=== PATIENT | female | born 1960 | race American Indian/Alaskan Native ===

== ENCOUNTER 2019-06-26 16:10 | Inpatient (IN) | payer OTHER, SELFPAY ==
--- NOTE | 2019-06-26 16:25 | Event Note ---
ED Screening Note Date of service: 06/26/19 Time: 16:24 ED Screening Note: This is a 58 y.o. F. that presents to the ER with cough, SOB, and chest discomfort for 10 days. Patient states she is taking OTC cold and flu medication with minimal changes. This initial assessment/diagnostic orders/clinical plan/treatment(s) is/are subject to change based on patients health status, clinical progression and re- assessment by fellow clinical providers in the ED. Further treatment and workup at subsequent clinical providers discretion. Patient/guardian urged not to elope from the ED as their condition may be serious if not clinically assessed and managed. Initial orders include: EKG and CXR
--- NOTE | 2019-06-26 17:09 | XRay Report ---
CHEST 2 VIEWS INDICATION / CLINICAL INFORMATION: MAIN: cough and SOB FOR 1 WEEK. COMPARISON: None available. FINDINGS: SUPPORT DEVICES: None. HEART / MEDIASTINUM: Critics silhouette size is mildly enlarged. LUNGS / PLEURA: There is mild interstitial prominence bilaterally. It is unclear how much of this is chronic interstitial disease versus mild interstitial pulmonary edema, or possibly a combination of b oth. There are no pleural effusions or suggestion for bacterial pneumonia. No pneumothorax. ADDITIONAL FINDINGS: No significant additional findings. IMPRESSION: 1. Mild cardiomegaly. 2. Mild interstitial prominence bilaterally. I would favor that interstitial prominence is due to chr onic interstitial disease. However I do not have any prior radiographs for comparison and therefore s ome degree of minimal interstitial pulmonary edema is not excluded. Clinical correlation is recommend ed. Signer Name: Juana Smith MD Signed: 06/26/2019 5:04 PM Workstation Name: [id number]
[2019-06-26 19:13] LABS: Basophils % (Auto) 0.5 % (0.0-1.8); Eosinophils # (Auto) 0.2 K/mm3 (0.0-0.4); Hematocrit 35.5 % (30.3-42.9); Hemoglobin 11.6 gm/dl (10.1-14.3); Lymphocytes # (Auto) 2.8 K/mm3 (1.2-5.4); Lymphocytes % (Auto) 34.5 % (13.4-35.0); Mean Corpuscular HGB Conc 33 % (30-34); Mean Corpuscular Volume 88 fl (79-97); Monocytes # (Auto) 0.7 K/mm3 (0.0-0.8); Monocytes % (Auto) 8.5 % (0.0-7.3); Platelet Count 412 K/mm3 (140-440); Red Blood Count 4.03 M/mm3 (3.65-5.03); Red Cell Distribution Width 16.5 % (13.2-15.2)
[2019-06-26 19:23] LABS: INR 0.94 (0.87-1.13)
--- NOTE | 2019-06-26 19:27 | Emergency Department Report ---
ED Shortness of Breath HPI - General Chief Complaint: Chest Pain Stated Complaint: FLU SX/CHEST PAIN Time Seen by Provider: 06/26/19 16:23 Source: patient Mode of arrival: Ambulatory Limitations: No Limitations - History of Present Illness Initial Comments: Mrs. Grant is a very pleasant 58-year-old female with history of tobacco abuse, hypertension and diabetes mellitus who presents with symptoms 10 days of cough shortness of breath. She has cloudy sputum. 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 He has similar symptoms. She denies fever. She's had chest discomfort. Nondescript. No history of lung disease. PCP Dr. Cirilo TAY Complaint: shortness of breath, cough -: Gradual, days(s) (10) Severity: severe Quality: aching Consistency: constant Worsens With: exertion, coughing Known History Of: other (tobacco use HTN) - Related Data Home Medications Medication Instructions Recorded Confirmed Last Taken Lisinopril/Hydrochlorothiazide 1 tab PO BID 06/26/19 06/26/19 06/26/19 Neurontin 300 mg PO Q6H 06/26/19 06/26/19 06/26/19 metFORMIN 1,000 mg PO BID 06/26/19 06/26/19 06/26/19 Allergies Allergy/AdvReac Type Severity Reaction Status Date / Time prochlorperazine Allergy Unknown Verified 06/26/19 16:16 [From Compazine] ED Review of Systems ROS: Stated complaint: FLU SX/CHEST PAIN Other details as noted in HPI Comment: All other systems reviewed and negative Constitutional: malaise Respiratory: cough, shortness of breath, SOB with exertion Cardiovascular: chest pain ED Past Medical Hx - Past Medical History Previous Medical History?: Yes Hx Hypertension: Yes Hx Diabetes: Yes - Surgical History Past Surgical History?: Yes Additional Surgical History: c sections x 2. abd hernia x 5. appendectomy - Social History Smoking Status: Current Every Day Smoker Substance Use Type: Alcohol, Marijuana - Medications Home Medications: Home Medications Medication Instructions Recorded Confirmed Last Taken Type Lisinopril/Hydrochlorothiazide 1 tab PO BID 06/26/19 06/26/19 06/26/19 History Neurontin 300 mg PO Q6H 06/26/19 06/26/19 06/26/19 History metFORMIN 1,000 mg PO BID 06/26/19 06/26/19 06/26/19 History ED Physical Exam - General Limitations: No Limitations General appearance: alert, in distress, other (appears uncomfortable, speaks with obvious effort, frequent cough) - Head Head exam: Present: atraumatic, normocephalic - Eye Eye exam: Present: normal appearance - ENT ENT exam: Present: mucous membranes moist - Neck Neck exam: Present: normal inspection, full ROM - Respiratory Respiratory exam: Present: respiratory distress, wheezes, rales. Absent: rhonchi, stridor, chest wall tenderness, accessory muscle use, decreased breath sounds, prolonged expiratory - Cardiovascular Cardiovascular Exam: Present: regular rate, normal rhythm, normal heart sounds. Absent: systolic murmur, diastolic murmur, rubs, gallop - GI/Abdominal GI/Abdominal exam: Present: soft, normal bowel sounds. Absent: distended, tenderness, guarding, rebound - Extremities Exam Extremities exam: Present: normal inspection - Neurological Exam Neurological exam: Present: alert, oriented X3 - Psychiatric Psychiatric exam: Present: normal affect, normal mood - Skin Skin exam: Present: warm, dry, intact, normal color. Absent: rash ED Course Vital Signs 06/26/19 06/26/19 06/26/19 16:27 18:40 18:43 Temperature 98.3 F Pulse Rate 95 H Pulse Rate [ Bilateral] Respiratory 18 18 Rate Respiratory Rate [Bilateral ] Blood Pressure 111/80 Blood Pressure [Right] O2 Sat by Pulse 100 97 Oximetry 06/26/19 06/26/19 06/26/19 18:44 18:57 19:12 Temperature Pulse Rate 84 70 85 Pulse Rate [ Bilateral] Respiratory 18 18 15 Rate Respiratory Rate [Bilateral ] Blood Pressure 172/84 Blood Pressure 172/84 173/83 [Right] O2 Sat by Pulse 100 100 93 Oximetry 06/26/19 06/26/19 06/26/19 19:30 20:00 20:06 Temperature Pulse Rate 78 86 Pulse Rate [ 94 H Bilateral] Respiratory 17 28 H Rate Respiratory 22 Rate [Bilateral ] Blood Pressure 162/78 166/88 Blood Pressure [Right] O2 Sat by Pulse 98 100 Oximetry 06/26/19 06/26/19 20:46 21:00 Temperature Pulse Rate 85 88 Pulse Rate [ Bilateral] Respiratory 20 20 Rate Respiratory Rate [Bilateral ] Blood Pressure 162/93 162/93 Blood Pressure [Right] O2 Sat by Pulse 96 98 Oximetry ED Medical Decision Making - Lab Data Result diagrams: 06/26/19 19:01 06/26/19 19:01 Laboratory Results - last 24 hr 06/26/19 06/26/19 06/26/19 19:01 19:01 19:01 WBC 8.1 RBC 4.03 Hgb 11.6 Hct 35.5 MCV 88 MCH 29 MCHC 33 RDW 16.5 H Plt Count 412 Lymph % (Auto) 34.5 O'Brien % (Auto) 8.5 H Eos % (Auto) 3.0 Baso % (Auto) 0.5 Lymph # 2.8 O'Brien # 0.7 Eos # 0.2 Baso # 0.0 Seg Neutrophils % 53.5 Seg Neutrophils # 4.3 PT 12.7 INR 0.94 Sodium 136 L Potassium 4.4 Chloride 94.9 L Carbon Dioxide 25 Anion Gap 21 BUN 18 H Creatinine 0.9 Estimated GFR > 60 BUN/Creatinine Ratio 20 Glucose 192 H Calcium 8.9 Total Bilirubin 0.30 AST 66 H ALT 368 H Alkaline Phosphatase 151 H Troponin T 0.020 NT-Pro-B Natriuret Pep 241.5 Total Protein 7.3 Albumin 3.4 L Albumin/Globulin Ratio 0.9 - EKG Data 06/26/19 19:22 EKG obtained 1618 NSR 90 bpm nl axis no ST elevation normal T wave pattern Poor R wave progression anterior leads Q waves anterior leads - Radiology Data Radiology results: report reviewed pCXR interstitial prominence edema vs infiltrate - Medical Decision Making Acute dyspnea with chest discomfort abnormal lung exam: Suspect new diagnosis of COPD. Did consider congestive heart failure. Normal BMP. Symptoms appear to be acute. She continues to have work of breathing. Hypoxia desaturation noted with m inimal exertion in the room. Admitted to the hospital service for further treatment and evaluation.. Critical care attestation.: If time is entered above; I have spent that time in minutes in the direct care of this critically ill patient, excluding procedure time. ED Disposition Clinical Impression: Acute respiratory failure with hypoxia, Acute bronchitis Disposition: OP ADMIT IP TO THIS HOSP Is pt being admited?: Yes Does the pt Need Aspirin: No Condition: Stable
[2019-06-26] MEDS ORDERED: ALBUTEROL 2.5 MG/3 ML NEBU IH ONE (19:28)
[2019-06-26] MEDS ORDERED: FUROSEMIDE 40 MG/4 ML INJ IV ONE (19:28)
[2019-06-26] MEDS ORDERED: IPRATROPIUM 0.02% NEBU 2.5 ML IH ONE (19:28)
[2019-06-26] MEDS ORDERED: levoFLOXacin 750 MG TAB PO ONE (19:28)
[2019-06-26] MEDS ORDERED: methylPREDNISolone Sod Succinate 125 MG/2 ML INJ IV ONE (19:28)
[2019-06-26 19:39] LABS: Alanine Aminotransferase 368 units/L (7-56); Albumin 3.4 g/dL (3.9-5); BUN/Creatinine Ratio 20; Blood Urea Nitrogen 18 mg/dL (7-17); Calcium 8.9 mg/dL (8.4-10.2); Hemolysis Index 15
[2019-06-27] MEDS ORDERED: ONDANSETRON 4 MG/2 ML INJ IV PRN (00:26)
[2019-06-27] MEDS ORDERED: ACETAMINOPHEN 325 MG TAB PO PRN (00:26)
[2019-06-27] MEDS ORDERED: MAGNESIUM HYDROXIDE (MOM) ORAL LIQD UDC PO PRN (00:26)
[2019-06-27] MEDS ORDERED: DEXTROSE 50% IN WATER (25GM) 50 ML SYRINGE IV PRN (00:26)
[2019-06-27] MEDS: SODIUM CHLORIDE 0.9% 1000 ML 1,000 ML IV SCH (01:19)
[2019-06-27] MEDS: IPRATROPIUM/ALBUTEROL SULFATE 3 ML AMPUL.NEB IH SCH ×4 (02:35→21:55)
--- NOTE | 2019-06-27 02:37 | History and Physical Report ---
History of Present Illness Date of examination: 06/27/19 Date of admission: 06/27/19 00:06 Chief complaint: Shortness of breath Cough History of present illness: 58-year-old -[place] female with known history of COPD, hypertension and diabetes mellitus. She presents to the emergency room today complaining of shortness of breath, cough fever which has been ongoing for about 10 days. Patient is an everyday smoker and she smokes less than half a pack of cigarette daily. She indicates that she traveled to [place] recently and since then she has been having cough and shortness of breath and some low-grade fever at home. She denies any sick contacts, she denies any nausea vomiting and she denies any chest pain. Upon arrival in the emergency room patient was found to be wheezing slightly up hypoxic with an O2 saturation in the upper 80s. She was given nebulizing treatments and placed on oxygen with some improvement Past History Past Medical History: COPD, diabetes, hypertension Past Surgical History: appendectomy, , hernia repair Social history: smoking (Smokes less than half a pack of cigarette daily), alcohol abuse (Drinks alcohol occasionally), other (Uses marijuana occasionally) Family history: diabetes (Mother has history of diabetes mellitus), other (Father has history of heart disease) Medications and Allergies Allergies Allergy/AdvReac Type Severity Reaction Status Date / Time prochlorperazine Allergy Unknown Verified 06/26/19 16:16 [From Compazine] Home Medications Medication Instructions Recorded Confirmed Last Taken Type Lisinopril/Hydrochlorothiazide 1 tab PO BID 06/26/19 06/26/19 06/26/19 History Neurontin 300 mg PO Q6H 06/26/19 06/26/19 06/26/19 History metFORMIN 1,000 mg PO BID 06/26/19 06/26/19 06/26/19 History Active Meds: Active Medications Acetaminophen (Tylenol) 650 mg PO Q4H PRN PRN Reason: Pain MILD(1-3)/Fever >100.5/LAUREANO Albuterol/Ipratropium (Duoneb *Not For Prn Use*) 1 ampul IH Q6HRT RICHARD Dextrose (D50w (25gm) Syringe) 50 ml IV Q30MIN PRN; Protocol PRN Reason: Hypoglycemia Sodium Chloride (Nacl 0.9% 1000 Ml) 1,000 mls @ 75 mls/hr IV DIRECT RICHARD Last Admin: 06/27/19 01:19 Dose: 75 mls/hr Documented by: Levofloxacin/Dextrose (Levaquin 750mg/150ml) 750 mg in 150 mls @ 100 mls/hr IV Q24HR RICHARD; Protocol Magnesium Hydroxide (Milk Of Magnesia) 30 ml PO Q4H PRN PRN Reason: Constipation Methylprednisolone Sodium Succinate (Solu-Medrol) 40 mg IV Q6HR RICHARD Ondansetron HCl (Zofran) 4 mg IV Q8H PRN PRN Reason: Nausea And Vomiting Pneumococcal Polyvalent Vaccine (Pneumovax 23) 0.5 ml IM .ONCE ONE Stop: 06/27/19 12:01 Sodium Chloride (Sodium Chloride Flush Syringe 10 Ml) 10 ml IV BID RICHARD Sodium Chloride (Sodium Chloride Flush Syringe 10 Ml) 10 ml IV PRN PRN PRN Reason: LINE FLUSH Review of Systems Respiratory: cough with sputum, shortness of breath Exam - Constitutional Vitals: Temp Pulse Resp BP Pulse Ox 97.8 F 82 20 165/85 93 06/27/19 01:29 06/27/19 01:26 06/27/19 01:26 06/27/19 01:26 06/27/19 01:26 General appearance: Present: no acute distress, well-nourished - EENT Eyes: Present: PERRL, EOM intact ENT: hearing intact, clear oral mucosa, dentition normal - Neck Neck: Present: supple, normal ROM - Respiratory Respiratory: bilateral: wheezing (Few scattered wheezes bilaterally) - Cardiovascular Rhythm: regular Heart Sounds: Present: S1 & S2 - Extremities Extremities: no ischemia, pulses intact, No edema Peripheral Pulses: within normal limits - Abdominal General gastrointestinal: Present: soft, non-tender, non-distended, normal bowel sounds - Integumentary Integumentary: Present: clear, warm, dry - Musculoskeletal Musculoskeletal: strength equal bilaterally - Psychiatric Psychiatric: appropriate mood/affect, intact judgment & insight, cooperative - Neurologic Neurologic: CNII-XII intact, moves all extremities Results - Labs CBC & Chem 7: 06/26/19 19:01 06/26/19 19:01 Labs: Abnormal lab results 06/26/19 06/26/19 Range/Units 19:01 19:01 RDW 16.5 H (13.2-15.2) % Webb % (Auto) 8.5 H (0.0-7.3) % Sodium 136 L (137-145) mmol/L Chloride 94.9 L (98-107) mmol/L BUN 18 H (7-17) mg/dL Glucose 192 H (65-100) mg/dL AST 66 H (5-40) units/L ALT 368 H (7-56) units/L Alkaline Phosphatase 151 H (35-129) units/L Albumin 3.4 L (3.9-5) g/dL Assessment and Plan - Patient Problems (1) COPD with acute bronchitis Current Visit: Yes Status: Acute Plan to address problem: Patient placed on nebulizing treatments and IV steroid. She is also placed on empiric IV antibiotics for possible underlying bronchitis. We will keep O2 saturation greater or equal to 92%. (2) Hypertension Current Visit: Yes Status: Acute Plan to address problem: Resume routine home medications and monitor vital signs closely. (3) Diabetes mellitus Current Visit: Yes Status: Acute Plan to address problem: We will monitor Accu-Cheks closely and continue routine home medications. (4) DVT prophylaxis Current Visit: Yes Status: Acute Plan to address problem: Patient placed on subcutaneous heparin. (5) Full code status Current Visit: Yes Status: Acute
[2019-06-27] MEDS: methylPREDNISolone Sod Succinate 40 MG/1 ML INJ IV SCH ×3 (06:20→18:00)
[2019-06-27] MEDS: HEPARIN 5,000 UNIT/1 ML VIAL SUB-Q SCH ×3 (06:27→22:03)
[2019-06-27] MEDS: GABAPENTIN 300 MG CAP PO SCH ×3 (06:27→17:15)
[2019-06-27] MEDS: metFORMIN 500 MG TAB PO SCH ×2 (08:20→17:15)
[2019-06-27] MEDS ORDERED: ALBUTEROL 2.5 MG/3 ML NEBU IH PRN (08:30)
[2019-06-27] MEDS: LISINOPRIL 20 MG TAB PO SCH ×2 (09:31→22:02)
[2019-06-27] MEDS: hydroCHLOROthiazide 12.5 MG CAP PO SCH ×2 (09:33→22:02)
[2019-06-27] MEDS ORDERED: FLU VACC QUAD 2019-20 (3 YR UP)/PF 60 MCG/0.5 ML SYRINGE IM ONE (12:00)
[2019-06-27] MEDS ORDERED: PNEUMOCOCCAL 23 Valent 0.5 ML VIAL IM ONE (12:00)
--- NOTE | 2019-06-27 12:39 | Event Note ---
Date: 06/27/19 58-year-old -[place] female with known history of COPD, hypertension and diabetes mellitus. She presents to the emergency room today complaining of shortness of breath, cough fever which has been ongoing for about 10 days. Patient is an everyday smoker and she smokes less than half a pack of cigarette daily. She indicates that she traveled to [place] recently and since then she has been having cough and shortness of breath and some low-grade fever. Patient seen and examined medical records reviewed Agree with the current management. Smoking cessation counseling done --Acute exacerbation of COPD --Acute bronchitis --Hypertension --Type 2 diabetes mellitus --Morbid obesity BMI 41.5 --Ongoing tobacco use. Monitor closely and adjust the management as needed Plan of care reviewed with the patient, her daughter at the bedside Consult pulmonary if no improvement Disposition; possible discharge in 1 to 2 days if stable
[2019-06-27] MEDS: INSULIN LISPRO 100 UNIT/ML SUB-Q SCH ×2 (17:15→22:03)
[2019-06-27] MEDS: BUDESONIDE 0.5 MG/2 ML NEBU IH SCH (21:55)
[2019-06-27] MEDS: ARFORMOTEROL 15 MCG/2 ML NEBU IH SCH (21:55)
[2019-06-27] MEDS: TEMAZEPAM 15 MG CAP PO PRN (22:02)
[2019-06-28] MEDS: GABAPENTIN 300 MG CAP PO SCH ×4 (00:05→17:32)
[2019-06-28] MEDS: methylPREDNISolone Sod Succinate 40 MG/1 ML INJ IV SCH ×4 (00:05→17:32)
[2019-06-28] MEDS: HEPARIN 5,000 UNIT/1 ML VIAL SUB-Q SCH ×3 (05:34→22:03)
[2019-06-28] MEDS: SODIUM CHLORIDE 0.9% 1000 ML 1,000 ML IV SCH (05:35)
[2019-06-28 07:05] LABS: BUN/Creatinine Ratio 27; Blood Urea Nitrogen 30 mg/dL (7-17); Calcium 9.1 mg/dL (8.4-10.2); Hemolysis Index 3
[2019-06-28] MEDS: INSULIN LISPRO 100 UNIT/ML SUB-Q SCH ×4 (08:00→22:02)
[2019-06-28] MEDS: metFORMIN 500 MG TAB PO SCH ×2 (08:34→17:34)
[2019-06-28 09:02] LABS: INR 0.94 (0.87-1.13); Partial Thromboplastin Time 30.7 Sec. (24.2-36.6)
[2019-06-28] MEDS: hydroCHLOROthiazide 12.5 MG CAP PO SCH ×2 (09:33→22:02)
[2019-06-28 09:34] LABS: Basophils % (Auto) 0.1 % (0.0-1.8); Hematocrit 34.4 % (30.3-42.9); Lymphocytes # (Auto) 0.8 K/mm3 (1.2-5.4); Mean Corpuscular HGB Conc 32 % (30-34); Mean Corpuscular Volume 89 fl (79-97); Monocytes # (Auto) 0.5 K/mm3 (0.0-0.8); Monocytes % (Auto) 4.3 % (0.0-7.3); Platelet Count 450 K/mm3 (140-440); Red Blood Count 3.88 M/mm3 (3.65-5.03); Red Cell Distribution Width 16.4 % (13.2-15.2)
[2019-06-28] MEDS: LISINOPRIL 20 MG TAB PO SCH ×2 (09:35→22:01)
[2019-06-28] MEDS: ARFORMOTEROL 15 MCG/2 ML NEBU IH SCH ×2 (09:58→19:53)
[2019-06-28] MEDS: BUDESONIDE 0.5 MG/2 ML NEBU IH SCH ×2 (09:58→19:53)
[2019-06-28] MEDS: IPRATROPIUM/ALBUTEROL SULFATE 3 ML AMPUL.NEB IH SCH ×4 (09:58→20:00)
--- NOTE | 2019-06-28 15:16 | Cat Scan Report ---
CTA chest with contrast INDICATION : SOB. TECHNIQUE: Axial imaging performed through the chest, with contrast bolus timing set to maximize opa cification of the pulmonary arteries. 3-plane MIP reformatted images were obtained. All CT scans at this location are performed using CT dose reduction for ALARA by means of automated exposure control. 100 mL of intravenous contrast administered. COMPARISON: Chest x-ray from 2 days prior FINDINGS: Bolus: Contrast bolus timing is adequate. PTE: No filling defect is present to suggest PTE. Mediastinum: Heart and great vessels appear normal, with incidental bovine aortic arch configuration . No pathologic mediastinal adenopathy. Lungs: There is minimal tree-in-bud airspace disease in the periphery of the right upper lobe as wel l as the right lower lobe. No consolidation or pleural effusion. Upper abdomen: Limited imaging of the upper abdomen shows nothing acute. Bones: Degenerative changes in the spine with nothing acute. IMPRESSION: 1. Negative for PTE. 2. Minimal tree-in-bud airspace disease in the right lung can be seen with an atypical infectious pro cess. No dense consolidation or effusion. Signer Name: Rosendo Galicia MD Signed: 06/28/2019 3:12 PM Workstation Name: [id number]
--- NOTE | 2019-06-28 17:48 | Progress Note ---
Assessment and Plan Assessment and plan: Patient is a 58-year-old -[place] woman with known history of COPD, hypertension and diabetes mellitus. She presents to the emergency room today complaining of shortness of breath, cough fever which has been ongoing for about 10 days. Patient is an everyday smoker and she smokes less than half a pack of cigarette daily. She indicates that she flew to [facility] recently and since then she has been having cough and shortness of breath and some low-grade fever at home. She denies any sick contacts, she denies any nausea vomiting and she denies any chest pain. CTA chest shows tree-in-bud right lung atypical pneumonia, consulted ID. (1) COPD with acute bronchitis Current Visit: Yes Status: Acute Plan to address problem: Patient placed on nebulizing treatments and IV steroid. She is also placed on empiric IV antibiotics for possible underlying bronchitis. We will keep O2 saturation greater or equal to 92%. (2) Hypertension Current Visit: Yes Status: Acute Plan to address problem: Resume routine home medications and monitor vital signs closely. (3) Diabetes mellitus Current Visit: Yes Status: Acute Plan to address problem: We will monitor Accu-Cheks closely and continue routine home medications. (4) DVT prophylaxis Current Visit: Yes Status: Acute Plan to address problem: Patient placed on subcutaneous heparin. (5) Full code status Current Visit: Yes Status: Acute sepsis pneumonia, poa RUL and RLL Aspiraiton pneumionia suspect: treat with iv abx History Interval history: Patient was seen and examined. Follow-up on current diagnosis. No overnight events reported to me. Patient denies any chest pain, shortness breath, nausea/vomiting or severe headaches. Imaging, nursing note, chart, labs and old chart reviewed. Discussed with patient. Hospitalist Physical - Physical exam Narrative exam: Gen: ill appearing, NAD, Awake, Alert, Orientated HEENT: NCAT, EOMI, PERRL, OP Clear Neck: supple, no adenopathy, no thyromegaly, no JVD CVS/Heart: RRR, normal S1S2, pulses present bilaterally Chest/Lungs: diminished bs bilateral, Symmetrical chest expansion, good air entry bilaterally GI/Abdomen: soft, NTND, good bowel sounds, no guarding or rebound /Bladder: no suprapubic tenderness, no CVA or paraspinal tenderness Extermity/Skin: no c/c/e, no obvious rash MSK: FROM x 4 Neuro: CN 2-12 grossly intact, no new focal deficits Psych: calm - Constitutional Vitals: Temp Pulse Resp BP Pulse Ox 97.7 F 97 H 18 175/85 96 06/28/19 08:02 06/28/19 16:29 06/28/19 16:29 06/28/19 11:45 06/28/19 11:45 General appearance: Present: no acute distress, well-nourished Results - Labs CBC & Chem 7: 06/28/19 05:00 06/28/19 05:00 Labs: Laboratory Last Values WBC 11.5 K/mm3 (4.5-11.0) H 06/28/19 05:00 RBC 3.88 M/mm3 (3.65-5.03) 06/28/19 05:00 Hgb 11.0 gm/dl (10.1-14.3) 06/28/19 05:00 Hct 34.4 % (30.3-42.9) 06/28/19 05:00 MCV 89 fl (79-97) 06/28/19 05:00 MCH 28 pg (28-32) 06/28/19 05:00 MCHC 32 % (30-34) 06/28/19 05:00 RDW 16.4 % (13.2-15.2) H 06/28/19 05:00 Plt Count 450 K/mm3 (140-440) H 06/28/19 05:00 Lymph % (Auto) 7.0 % (13.4-35.0) L 06/28/19 05:00 Coleman % (Auto) 4.3 % (0.0-7.3) 06/28/19 05:00 Eos % (Auto) 0.0 % (0.0-4.3) 06/28/19 05:00 Baso % (Auto) 0.1 % (0.0-1.8) 06/28/19 05:00 Lymph # 0.8 K/mm3 (1.2-5.4) L 06/28/19 05:00 Coleman # 0.5 K/mm3 (0.0-0.8) 06/28/19 05:00 Eos # 0.0 K/mm3 (0.0-0.4) 06/28/19 05:00 Baso # 0.0 K/mm3 (0.0-0.1) 06/28/19 05:00 Seg Neutrophils % 88.6 % (40.0-70.0) H 06/28/19 05:00 Seg Neutrophils # 10.2 K/mm3 (1.8-7.7) H 06/28/19 05:00 PT 12.7 Sec. (12.2-14.9) 06/28/19 05:00 INR 0.94 (0.87-1.13) 06/28/19 05:00 APTT 30.7 Sec. (24.2-36.6) 06/28/19 05:00 D-Dimer 678.50 ng/mlDDU (0-234) H 06/28/19 10:35 Sodium 135 mmol/L (137-145) L 06/28/19 05:00 Potassium 5.2 mmol/L (3.6-5.0) H 06/28/19 05:00 Chloride 93.3 mmol/L (98-107) L 06/28/19 05:00 Carbon Dioxide 23 mmol/L (22-30) 06/28/19 05:00 Anion Gap 24 mmol/L 06/28/19 05:00 BUN 30 mg/dL (7-17) H 06/28/19 05:00 Creatinine 1.1 mg/dL (0.7-1.2) 06/28/19 05:00 Estimated GFR > 60 ml/min 06/28/19 05:00 BUN/Creatinine Ratio 27 % 06/28/19 05:00 Glucose 357 mg/dL (65-100) H 06/28/19 05:00 POC Glucose 243 (70-105) H 06/28/19 17:36 Calcium 9.1 mg/dL (8.4-10.2) 06/28/19 05:00 Total Bilirubin 0.30 mg/dL (0.1-1.2) 06/26/19 19:01 AST 66 units/L (5-40) H 06/26/19 19:01 ALT 368 units/L (7-56) H 06/26/19 19:01 Alkaline Phosphatase 151 units/L (35-129) H 06/26/19 19:01 Troponin T 0.020 ng/mL (0.00-0.029) 06/26/19 19:01 NT-Pro-B Natriuret Pep 241.5 pg/mL (0-900) 06/26/19 19:01 Total Protein 7.3 g/dL (6.3-8.2) 06/26/19 19:01 Albumin 3.4 g/dL (3.9-5) L 06/26/19 19:01 Albumin/Globulin Ratio 0.9 % 06/26/19 19:01 Active Medications - Current Medications Current Medications: Generic Name Dose Route Start Last Admin Trade Name Freq PRN Reason Stop Dose Admin Acetaminophen 650 mg 06/27/19 00:26 06/28/19 10:15 Tylenol PO 650 mg Q4H PRN Administration Pain MILD(1-3)/Fever >100.5/LAUREANO Albuterol 2.5 mg 06/27/19 08:30 Proventil IH Q4HRT PRN Shortness Of Breath Albuterol/Ipratropium 1 ampul 06/27/19 14:00 06/28/19 16:29 Duoneb *Not For Prn Use* IH 1 ampul TIDRT RICHARD Administration Arformoterol Tartrate 15 mcg 06/27/19 20:00 06/28/19 09:58 Brovana Nebu IH 15 mcg Q12HRT RICHARD Administration Budesonide 0.5 mg 06/27/19 20:00 06/28/19 09:58 Pulmicort IH 0.5 mg Q12HRT RICHARD Administration Dextrose 50 ml 06/27/19 00:26 D50w (25gm) Syringe IV Q30MIN PRN Hypoglycemia Protocol Gabapentin 300 mg 06/27/19 05:15 06/28/19 17:32 Gabapentin PO 300 mg Q6HR RICHARD Administration Heparin Sodium (Porcine) 5,000 unit 06/27/19 06:00 06/28/19 16:05 Heparin SUB-Q 5,000 unit Q8HR RICHARD Administration Hydralazine HCl 10 mg 06/28/19 12:00 Apresoline IV Q4H PRN Blood Pressure Hydrochlorothiazide 12.5 mg 06/27/19 10:00 06/28/19 09:33 Hctz PO 12.5 mg BID RICHARD Administration Sodium Chloride 1,000 mls @ 75 mls/hr 06/27/19 00:30 06/28/19 05:35 Nacl 0.9% 1000 Ml IV 75 mls/hr DIRECT RICHARD Administration Levofloxacin/Dextrose 750 mg in 150 mls @ 100 mls/hr 06/27/19 10:00 06/28/19 09:34 Levaquin 750mg/150ml IV 100 mls/hr Q24HR RICHARD Administration Protocol Insulin Human Lispro 0 unit 06/27/19 16:30 06/28/19 17:33 Humalog SUB-Q 3 unit ACHS RICHARD Administration Protocol Lisinopril 20 mg 06/27/19 10:00 06/28/19 09:35 Zestril PO 20 mg BID RICHARD Administration Magnesium Hydroxide 30 ml 06/27/19 00:26 Milk Of Magnesia PO Q4H PRN Constipation Metformin HCl 1,000 mg 06/27/19 08:00 06/28/19 17:34 Glucophage PO Not Given BIDDIAB RICHARD Methylprednisolone Sodium Succinate 40 mg 06/27/19 06:00 06/28/19 17:32 Solu-Medrol IV 40 mg Q6HR RICHARD Administration Ondansetron HCl 4 mg 06/27/19 00:26 Zofran IV Q8H PRN Nausea And Vomiting Sodium Chloride 10 ml 06/27/19 10:00 06/28/19 09:34 Sodium Chloride Flush Syringe 10 Ml IV 10 ml BID RICHARD Administration Sodium Chloride 10 ml 06/27/19 00:26 Sodium Chloride Flush Syringe 10 Ml IV PRN PRN LINE FLUSH Temazepam 15 mg 06/27/19 21:18 06/27/19 22:02 Restoril PO 15 mg QHS PRN Administration Sleep
[2019-06-28] MEDS: AZITHROMYCIN 500 MG in SODIUM CHLORIDE 0.9% 250ML 250 ML IV SCH (18:50)
[2019-06-28] MEDS: TEMAZEPAM 15 MG CAP PO PRN (22:01)
[2019-06-29] MEDS: methylPREDNISolone Sod Succinate 40 MG/1 ML INJ IV SCH ×4 (02:42→22:40)
[2019-06-29] MEDS: GABAPENTIN 300 MG CAP PO SCH ×4 (02:43→18:01)
[2019-06-29] MEDS: HEPARIN 5,000 UNIT/1 ML VIAL SUB-Q SCH ×3 (06:18→22:43)
[2019-06-29] MEDS: BUDESONIDE 0.5 MG/2 ML NEBU IH SCH ×2 (07:41→20:11)
[2019-06-29] MEDS: IPRATROPIUM/ALBUTEROL SULFATE 3 ML AMPUL.NEB IH SCH ×4 (07:41→20:11)
[2019-06-29] MEDS: ARFORMOTEROL 15 MCG/2 ML NEBU IH SCH ×2 (07:41→20:11)
[2019-06-29] MEDS: LISINOPRIL 20 MG TAB PO SCH ×2 (09:07→22:41)
[2019-06-29] MEDS: SODIUM CHLORIDE 0.9% 1000 ML 1,000 ML IV SCH (09:07)
[2019-06-29] MEDS: hydroCHLOROthiazide 12.5 MG CAP PO SCH ×2 (09:07→22:41)
[2019-06-29] MEDS: INSULIN LISPRO 100 UNIT/ML SUB-Q SCH ×4 (09:08→22:42)
[2019-06-29] MEDS: metFORMIN 500 MG TAB PO SCH (09:08)
--- NOTE | 2019-06-29 13:22 | Progress Note ---
Assessment and Plan Assessment and plan: Patient is a 58-year-old -[place] woman with known history of COPD, hypertension and diabetes mellitus. She presents to the emergency room today complaining of shortness of breath, cough fever which has been ongoing for about 10 days. Patient is an everyday smoker and she smokes less than half a pack of cigarette daily. She indicates that she flew to [facility] 06/17-03/31 recently. She was so sick after flying to [place] that she could not go to the event. Since then she has been having worsening cough and shortness of breath with some low-grade fever at home. CTA chest shows tree-in-bud right lung atypical pneumonia, consulted ID. Sepsis pneumonia, poa: treat with abx and follow cultures RUL and RLL Aspiraiton pneumionia suspected, poa: treat with iv abx, consulted ID due to atypical nature of the pneumonia Acute COPD with acute bronchitis: continue iv steroid but start weaning down, nebs, and O2 Acute hypoxic respiratory failure, poa: trying to wean off 3 liters O2 Hypertension: Resume routine home medications and monitor vital signs closely. Diabetes mellitus type 2, uncontrolled hyperglycemia on steroids and off m etformin due to contrast dye, give one dose of Lantus and wean steroids, increase SSI also DVT prophylaxis: Patient placed on subcutaneous heparin. Full code status Dispo: continue inpatient care, trying to wean off O2 History Interval history: Patient was seen and examined. Follow-up on current diagnosis. No overnight events reported to me. Patient denies any chest pain, shortness breath, nausea/vomiting or severe headaches. Imaging, nursing note, chart, labs and old chart reviewed. Discussed with patient. Hospitalist Physical - Physical exam Narrative exam: Gen: ill appearing, NAD, Awake, Alert, Orientated HEENT: NCAT, EOMI, PERRL, OP Clear Neck: supple, no adenopathy, no thyromegaly, no JVD CVS/Heart: RRR, normal S1S2, pulses present bilaterally Chest/Lungs: diminished bs bilateral, Symmetrical chest expansion, good air entry bilaterally GI/Abdomen: soft, NTND, good bowel sounds, no guarding or rebound /Bladder: no suprapubic tenderness, no CVA or paraspinal tenderness Extermity/Skin: no c/c/e, no obvious rash MSK: FROM x 4 Neuro: CN 2-12 grossly intact, no new focal deficits Psych: calm - Constitutional Vitals: Temp Pulse Resp BP Pulse Ox 98.4 F 94 H 18 151/73 94 06/29/19 12:53 06/29/19 13:11 06/29/19 13:11 06/29/19 12:53 06/29/19 13:05 General appearance: Present: no acute distress, well-nourished Results - Labs CBC & Chem 7: 06/28/19 05:00 06/28/19 05:00 Labs: Laboratory Last Values WBC 11.5 K/mm3 (4.5-11.0) H 06/28/19 05:00 RBC 3.88 M/mm3 (3.65-5.03) 06/28/19 05:00 Hgb 11.0 gm/dl (10.1-14.3) 06/28/19 05:00 Hct 34.4 % (30.3-42.9) 06/28/19 05:00 MCV 89 fl (79-97) 06/28/19 05:00 MCH 28 pg (28-32) 06/28/19 05:00 MCHC 32 % (30-34) 06/28/19 05:00 RDW 16.4 % (13.2-15.2) H 06/28/19 05:00 Plt Count 450 K/mm3 (140-440) H 06/28/19 05:00 Lymph % (Auto) 7.0 % (13.4-35.0) L 06/28/19 05:00 [place] % (Auto) 4.3 % (0.0-7.3) 06/28/19 05:00 Eos % (Auto) 0.0 % (0.0-4.3) 06/28/19 05:00 Baso % (Auto) 0.1 % (0.0-1.8) 06/28/19 05:00 Lymph # 0.8 K/mm3 (1.2-5.4) L 06/28/19 05:00 [place] # 0.5 K/mm3 (0.0-0.8) 06/28/19 05:00 Eos # 0.0 K/mm3 (0.0-0.4) 06/28/19 05:00 Baso # 0.0 K/mm3 (0.0-0.1) 06/28/19 05:00 Seg Neutrophils % 88.6 % (40.0-70.0) H 06/28/19 05:00 Seg Neutrophils # 10.2 K/mm3 (1.8-7.7) H 06/28/19 05:00 PT 12.7 Sec. (12.2-14.9) 06/28/19 05:00 INR 0.94 (0.87-1.13) 06/28/19 05:00 APTT 30.7 Sec. (24.2-36.6) 06/28/19 05:00 D-Dimer 678.50 ng/mlDDU (0-234) H 06/28/19 10:35 Sodium 135 mmol/L (137-145) L 06/28/19 05:00 Potassium 5.2 mmol/L (3.6-5.0) H 06/28/19 05:00 Chloride 93.3 mmol/L (98-107) L 06/28/19 05:00 Carbon Dioxide 23 mmol/L (22-30) 06/28/19 05:00 Anion Gap 24 mmol/L 06/28/19 05:00 BUN 30 mg/dL (7-17) H 06/28/19 05:00 Creatinine 1.1 mg/dL (0.7-1.2) 06/28/19 05:00 Estimated GFR > 60 ml/min 06/28/19 05:00 BUN/Creatinine Ratio 27 % 06/28/19 05:00 Glucose 357 mg/dL (65-100) H 06/28/19 05:00 POC Glucose 429 (70-105) H 06/29/19 12:15 Calcium 9.1 mg/dL (8.4-10.2) 06/28/19 05:00 Total Bilirubin 0.30 mg/dL (0.1-1.2) 06/26/19 19:01 AST 66 units/L (5-40) H 06/26/19 19:01 ALT 368 units/L (7-56) H 06/26/19 19:01 Alkaline Phosphatase 151 units/L (35-129) H 06/26/19 19:01 Troponin T 0.020 ng/mL (0.00-0.029) 06/26/19 19:01 NT-Pro-B Natriuret Pep 241.5 pg/mL (0-900) 06/26/19 19:01 Total Protein 7.3 g/dL (6.3-8.2) 06/26/19 19:01 Albumin 3.4 g/dL (3.9-5) L 06/26/19 19:01 Albumin/Globulin Ratio 0.9 % 06/26/19 19:01 Active Medications - Current Medications Current Medications: Generic Name Dose Route Start Last Admin Trade Name Freq PRN Reason Stop Dose Admin Acetaminophen 650 mg 06/27/19 00:26 06/28/19 10:15 Tylenol PO 650 mg Q4H PRN Administration Pain MILD(1-3)/Fever >100.5/LAUREANO Albuterol 2.5 mg 06/27/19 08:30 Proventil IH Q4HRT PRN Shortness Of Breath Albuterol/Ipratropium 1 ampul 06/27/19 14:00 06/29/19 13:11 Duoneb *Not For Prn Use* IH 1 ampul TIDRT RICHARD Administration Arformoterol Tartrate 15 mcg 06/27/19 20:00 06/29/19 07:41 Brovana Nebu IH 15 mcg Q12HRT RICHARD Administration Budesonide 0.5 mg 06/27/19 20:00 06/29/19 07:41 Pulmicort IH 0.5 mg Q12HRT RICHARD Administration Dextrose 50 ml 06/27/19 00:26 D50w (25gm) Syringe IV Q30MIN PRN Hypoglycemia Protocol Diphenhydramine HCl 25 mg 06/29/19 13:15 Benadryl PO Q8H PRN Itching Gabapentin 300 mg 06/27/19 05:15 06/29/19 12:25 Gabapentin PO 300 mg Q6HR RICHARD Administration Heparin Sodium (Porcine) 5,000 unit 06/27/19 06:00 06/29/19 13:01 Heparin SUB-Q Not Given Q8HR RICHARD Hydralazine HCl 10 mg 06/28/19 12:00 Apresoline IV Q4H PRN Blood Pressure Hydrochlorothiazide 12.5 mg 06/27/19 10:00 06/29/19 09:07 Hctz PO 12.5 mg BID RICHARD Administration Sodium Chloride 1,000 mls @ 75 mls/hr 06/27/19 00:30 06/29/19 09:07 Nacl 0.9% 1000 Ml IV 75 mls/hr DIRECT RICHARD Administration Azithromycin 500 mg/ Sodium 250 mls @ 250 mls/hr 06/28/19 18:30 06/28/19 18:50 Chloride IV 250 mls/hr Q24H RICHARD Administration Protocol Insulin Human Lispro 0 unit 06/27/19 16:30 06/29/19 12:26 Humalog SUB-Q 8 unit ACHS RICHARD Administration Protocol Lisinopril 20 mg 06/27/19 10:00 06/29/19 09:07 Zestril PO 20 mg BID RICHARD Administration Magnesium Hydroxide 30 ml 06/27/19 00:26 Milk Of Magnesia PO Q4H PRN Constipation Methylprednisolone Sodium Succinate 40 mg 06/27/19 06:00 06/29/19 12:25 Solu-Medrol IV 40 mg Q6HR RICHARD Administration Ondansetron HCl 4 mg 06/27/19 00:26 06/28/19 19:32 Zofran IV 4 mg Q8H PRN Administration Nausea And Vomiting Sodium Chloride 10 ml 06/27/19 10:00 06/29/19 09:08 Sodium Chloride Flush Syringe 10 Ml IV 10 ml BID RICHARD Administration Sodium Chloride 10 ml 06/27/19 00:26 06/29/19 06:20 Sodium Chloride Flush Syringe 10 Ml IV 10 ml PRN PRN Administration LINE FLUSH Temazepam 15 mg 06/27/19 21:18 06/28/19 22:01 Restoril PO 15 mg QHS PRN Administration Sleep
[2019-06-29] MEDS ORDERED: INSULIN GLARGINE 100 UNITS/ML SUB-Q ONE (13:30)
[2019-06-29] MEDS: diphenhydrAMINE 25 MG CAP PO PRN ×2 (13:35→22:40)
--- NOTE | 2019-06-29 17:08 | Consultation ---
History of Present Illness - Reason for Consult Consult date: 06/29/19 - History of Present Illness 58 yo F PMHx COPD, HTN, DM2, tobacco abuse admitted to the hospital complaining of shortness of breath. She notes this began on June 17 as she was boarding a plane to go to [place] for a wedding. She felt so poorly there with SOB and non-productive cough that she was unable to attend the wedding, and flew back to [place] early. Since then she thought she had a virus that she would get over, however she continues to feel the same/worse. She denies any fevers, sweats, chills. Denies any sick contacts. Has travelled to [place] repeatedly since the summer, however no other travel. From [place] originally. Afebrile since admission with a white count of 11.5. Blood cultures no growth so far. Currently receiving azithromycin Imaging personally reviewed: CT chest: Tree in bud opacities. Review of systems: Bold if positive; otherwise negative GENERAL: fever, chills, weight loss, fatigue, night sweats EYES: blurry vision, eye pain HENT: headache, hearing loss, sore throat, dysphagia, sinus pain CARDIO: chest pain, palpitations, orthopnea PULM: shortness of breath, wheezing, cough, sputum, hemoptysis GI: nausea, vomiting, diarrhea, abdominal pain, blood in stool : urinary frequency, urgency, dysuria, urethral discharge MSK: joint pain, back pain, swelling SKIN: rash, redness HEME: easy bruising, bleeding Past History Past Medical History: COPD, diabetes, hypertension Past Surgical History: appendectomy, , hernia repair Social history: smoking (Smokes less than half a pack of cigarette daily), alcohol abuse (Drinks alcohol occasionally), other (Uses marijuana occasionally) Family history: diabetes (Mother has history of diabetes mellitus), other (Father has history of heart disease) Medications and Allergies Allergies Allergy/AdvReac Type Severity Reaction Status Date / Time prochlorperazine Allergy Unknown Verified 06/26/19 16:16 [From Compazine] Home Medications Medication Instructions Recorded Confirmed Last Taken Type Lisinopril/Hydrochlorothiazide 1 tab PO BID 06/26/19 06/26/19 06/26/19 History Neurontin 300 mg PO Q6H 06/26/19 06/26/19 06/26/19 History metFORMIN 1,000 mg PO BID 06/26/19 06/26/19 06/26/19 History Active Meds: Active Medications Acetaminophen (Tylenol) 650 mg PO Q4H PRN PRN Reason: Pain MILD(1-3)/Fever >100.5/LAUREANO Last Admin: 06/28/19 10:15 Dose: 650 mg Documented by: Albuterol (Proventil) 2.5 mg IH Q4HRT PRN PRN Reason: Shortness Of Breath Albuterol/Ipratropium (Duoneb *Not For Prn Use*) 1 ampul IH TIDRT [facility] Last Admin: 06/29/19 13:11 Dose: 1 ampul Documented by: Arformoterol Tartrate (Brovana Nebu) 15 mcg IH Q12HRT [facility] Last Admin: 06/29/19 07:41 Dose: 15 mcg Documented by: Budesonide (Pulmicort) 0.5 mg IH Q12HRT [facility] Last Admin: 06/29/19 07:41 Dose: 0.5 mg Documented by: Dextrose (D50w (25gm) Syringe) 50 ml IV Q30MIN PRN; Protocol PRN Reason: Hypoglycemia Diphenhydramine HCl (Benadryl) 25 mg PO Q8H PRN PRN Reason: Itching Last Admin: 06/29/19 13:35 Dose: 25 mg Documented by: Gabapentin (Gabapentin) 300 mg PO Q6HR [facility] Last Admin: 06/29/19 12:25 Dose: 300 mg Documented by: Heparin Sodium (Porcine) (Heparin) 5,000 unit SUB-Q Q8HR [facility] Last Admin: 06/29/19 13:01 Dose: Not Given Documented by: Hydralazine HCl (Apresoline) 10 mg IV Q4H PRN PRN Reason: Blood Pressure Hydrochlorothiazide (Hctz) 12.5 mg PO BID [facility] Last Admin: 06/29/19 09:07 Dose: 12.5 mg Documented by: Azithromycin 500 mg/ Sodium (Chloride) 250 mls @ 250 mls/hr IV Q24H [facility]; Protocol Last Admin: 06/28/19 18:50 Dose: 250 mls/hr Documented by: Insulin Human Lispro (Humalog) 0 unit SUB-Q ACHS [facility]; Protocol Last Admin: 06/29/19 12:26 Dose: 8 unit Documented by: Lisinopril (Zestril) 20 mg PO BID [facility] Last Admin: 06/29/19 09:07 Dose: 20 mg Documented by: Magnesium Hydroxide (Milk Of Magnesia) 30 ml PO Q4H PRN PRN Reason: Constipation Methylprednisolone Sodium Succinate (Solu-Medrol) 40 mg IV Q12HR [facility] Ondansetron HCl (Zofran) 4 mg IV Q8H PRN PRN Reason: Nausea And Vomiting Last Admin: 06/28/19 19:32 Dose: 4 mg Documented by: Sodium Chloride (Sodium Chloride Flush Syringe 10 Ml) 10 ml IV BID RICHARD Last Admin: 06/29/19 09:08 Dose: 10 ml Documented by: Sodium Chloride (Sodium Chloride Flush Syringe 10 Ml) 10 ml IV PRN PRN PRN Reason: LINE FLUSH Last Admin: 06/29/19 06:20 Dose: 10 ml Documented by: Temazepam (Restoril) 15 mg PO QHS PRN PRN Reason: Sleep Last Admin: 06/28/19 22:01 Dose: 15 mg Documented by: Physical Examination - Physical Exam Narrative exam: General Normal appearance, well developed, no acute distress Eyes - PERRLA, EOM intact ENT - Moist mucous membranes, no lymphadenopathy Neck - No noticeable or palpable swelling, redness or rash around throat or on face Lymph Nodes - No lymphadenopathy Cardiovascular - RRR no m/r/g, no JVD, no carotid bruits Lungs - Clear to auscultation, no use of accessory muscles, no crackles or wheezes. Skin - No rashes, skin warm and dry, no erythematous areas Abdomen - Normal bowel sounds, abdomen soft and nontender Extremities - No edema, cyanosis or clubbing Musculoskeletal - 5/5 strength, normal range of motion, no swollen or erythematous joints. Neurological Alert and oriented x 3, CN 2-12 grossly intact. - Constitutional Vitals: Vital Signs Temp Pulse Resp BP Pulse Ox 98.4 F 94 H 18 151/73 94 06/29/19 12:53 06/29/19 13:11 06/29/19 13:11 06/29/19 12:53 06/29/19 13:05 Temperature -Last 24 Hours Temperature 98.4 F Temperature 98.2 F Temperature 97.5 F Temperature 97.7 F Temperature 98.1 F Results - Labs CBC & Chem 7: 06/28/19 05:00 06/28/19 05:00 Labs: Abnormal lab results 06/28/19 06/28/19 06/29/19 Range/Units 17:36 20:55 07:24 POC Glucose 243 H 234 H 338 H (70-105) 06/29/19 Range/Units 12:15 POC Glucose 429 H (70-105) Assessment and Plan Cultures Blood culture 06/27/19 no growth to date Assessment: 58 yo F PMHx COPD, HTN, DM2, tobacco abuse admitted with shortness of breath 1. Shortness of breath - with tree in bud opacities, numerous etiologies possible. Recommend pulm consult for possible bronch or to rule out AFB infection such as MAC. Will check urine histo and blasto given [place] expeosure, though she does not have constitutional symptoms. POssible interstitial disease secondary to smoking or other environmental factors. Would not adjust antibiotics at present given afebrile and mildly elevated white count. 2. DM2 - tight glycemic control 3. COPD 4. Tobacoo abuse Recs: - pulm consult placed - continue azithromycin - urine histo and blasto ordered - if bronch performed please obtain cultures for aerobic/anaerobic/fungal/AFB - no need for isolation, more concerned about MAC. - ordered sputum culture Thank you for the consult, we will continue to follow. [facility] M: [phone] O: [phone] F: [phone]
[2019-06-29] MEDS: AZITHROMYCIN 500 MG in SODIUM CHLORIDE 0.9% 250ML 250 ML IV SCH (18:01)
[2019-06-29] MEDS ORDERED: INSULIN LISPRO 100 UNIT/ML SUB-Q ONE (18:59)
[2019-06-30] MEDS: GABAPENTIN 300 MG CAP PO SCH ×4 (00:30→17:47)
[2019-06-30] MEDS: TEMAZEPAM 15 MG CAP PO PRN ×3 (00:33→22:29)
[2019-06-30] MEDS: HEPARIN 5,000 UNIT/1 ML VIAL SUB-Q SCH ×3 (06:49→22:26)
[2019-06-30] MEDS: hydrALAZINE 20 MG/1 ML INJ IV PRN (06:49)
[2019-06-30] MEDS: INSULIN LISPRO 100 UNIT/ML SUB-Q SCH ×4 (08:28→22:25)
[2019-06-30] MEDS: ARFORMOTEROL 15 MCG/2 ML NEBU IH SCH ×2 (08:43→21:40)
[2019-06-30] MEDS: BUDESONIDE 0.5 MG/2 ML NEBU IH SCH ×2 (08:43→21:37)
[2019-06-30] MEDS: IPRATROPIUM/ALBUTEROL SULFATE 3 ML AMPUL.NEB IH SCH ×3 (08:43→21:37)
[2019-06-30] MEDS: methylPREDNISolone Sod Succinate 40 MG/1 ML INJ IV SCH ×2 (10:10→22:25)
[2019-06-30] MEDS: hydroCHLOROthiazide 12.5 MG CAP PO SCH ×2 (10:11→22:24)
[2019-06-30] MEDS: LISINOPRIL 20 MG TAB PO SCH ×2 (10:11→22:24)
[2019-06-30] MEDS ORDERED: HYDROcodone/ACETAMINOPHEN 5-325 MG TAB PO PRN (11:30)
--- NOTE | 2019-06-30 12:25 | Progress Note ---
Assessment and Plan Cultures Blood culture 06/27/19 no growth to date Assessment: 58 yo F PMHx COPD, HTN, DM2, tobacco abuse admitted with shortness of breath 1. Shortness of breath - with tree in bud opacities, numerous etiologies possible. Recommend pulm consult for possible bronch or to rule out AFB infection such as MAC. Will check urine histo and blasto given [place] expeosure, though she does not have constitutional symptoms. POssible interstitial disease secondary to smoking or other environmental factors. Would not adjust antibiotics at present given afebrile and mildly elevated white count. 2. DM2 - tight glycemic control 3. COPD 4. Tobacoo abuse Recs: - pulm consult placed - stopped azithromycin as procal negative. - urine histo and blasto ordered - if bronch performed please obtain cultures for aerobic/anaerobic/fungal/AFB - no need for isolation, more concerned about MAC. - ordered sputum culture Thank you for the consult, we will continue to follow. [facility] M: [phone] O: [phone] F: [phone] Subjective Date of service: 06/30/19 Interval history: Afebrile, normal white count. Objective - Exam Narrative Exam: General Normal appearance, well developed, no acute distress Eyes - PERRLA, EOM intact ENT - Moist mucous membranes, no lymphadenopathy Neck - No noticeable or palpable swelling, redness or rash around throat or on face Lymph Nodes - No lymphadenopathy Cardiovascular - RRR no m/r/g, no JVD, no carotid bruits Lungs - Clear to auscultation, no use of accessory muscles, no crackles or wheezes. Skin - No rashes, skin warm and dry, no erythematous areas Abdomen - Normal bowel sounds, abdomen soft and nontender Extremities - No edema, cyanosis or clubbing Musculoskeletal - 5/5 strength, normal range of motion, no swollen or erythematous joints. Neurological Alert and oriented x 3, CN 2-12 grossly intact. - Constitutional Vitals: Vital Signs Temp Pulse Resp BP Pulse Ox 98.5 F 111 H 15 174/84 96 06/30/19 08:02 06/30/19 10:11 06/30/19 09:16 06/30/19 10:11 06/30/19 08:45 Temperature -Last 24 Hours Temperature 98.5 F Temperature 98.5 F Temperature 98.7 F Temperature 98.3 F Temperature 98.2 F Temperature 98.4 F - Labs CBC & Chem 7: 06/28/19 05:00 06/29/19 17:27 Labs: Abnormal lab results 06/29/19 06/29/19 06/29/19 Range/Units 17:12 17:27 20:38 Glucose 563 H* (65-100) mg/dL POC Glucose > 500 H 382 H (70-105) 06/30/19 Range/Units 08:31 Glucose (65-100) mg/dL POC Glucose 340 H (70-105)
--- NOTE | 2019-06-30 12:39 | Event Note ---
Date: 06/30/19 Spoke with GI labs. On schedule for tomorrow at 1500. Spoke with patient and daughter at bedside and she is in agreement. Per patient, making sputum. Will order specimen cup as well. If adequate sample achieved, would not need bronch.
[2019-06-30] MEDS: diphenhydrAMINE 25 MG CAP PO PRN ×2 (12:49→22:25)
--- NOTE | 2019-06-30 17:22 | Progress Note ---
Assessment and Plan Assessment and plan: Patient is a 58-year-old -German woman with known history of COPD, hypertension and diabetes mellitus. She presents to the emergency room today complaining of shortness of breath, cough fever which has been ongoing for about 10 days. Patient is an everyday smoker and she smokes less than half a pack of cigarette daily. She indicates that she flew to [facility] 06/17-03/31 recently. She was so sick after flying to [place] that she could not go to the event. Since then she has been having worsening cough and shortness of breath with some low-grade fever at home. CTA chest shows tree-in-bud right lung atypical pneumonia, consulted ID. Sepsis pneumonia, poa: treat with abx and follow cultures RUL and RLL Aspiraiton pneumionia suspected, poa: treat with iv abx, consulted ID due to atypical nature of the pneumonia Acute COPD with acute bronchitis: continue iv steroid but start weaning down, nebs, and O2 Acute hypoxic respiratory failure, poa: resolving Hypertension: Resume routine home medications and monitor vital signs closely. Diabetes mellitus type 2, uncontrolled hyperglycemia on steroids and off metformin due to contrast dye, give one dose of Lantus and wean steroids, increase SSI also DVT prophylaxis: Patient placed on subcutaneous heparin. Full code status Dispo: continue inpatient care, weaned off O2 on 06/29/19 evening, Bronchoscopy tomorrow. History Interval history: Patient was seen and examined. Follow-up on current diagnosis. No overnight events reported to me. Patient denies any chest pain, shortness breath, nausea/vomiting or severe headaches. Imaging, nursing note, chart, labs and old chart reviewed. Discussed with patient. Hospitalist Physical - Physical exam Narrative exam: Gen: ill appearing, NAD, Awake, Alert, Orientated HEENT: NCAT, EOMI, PERRL, OP Clear Neck: supple, no adenopathy, no thyromegaly, no JVD CVS/Heart: RRR, normal S1S2, pulses present bilaterally Chest/Lungs: diminished bs bilateral, Symmetrical chest expansion, good air entry bilaterally GI/Abdomen: soft, NTND, good bowel sounds, no guarding or rebound /Bladder: no suprapubic tenderness, no CVA or paraspinal tenderness Extermity/Skin: no c/c/e, no obvious rash MSK: FROM x 4 Neuro: CN 2-12 grossly intact, no new focal deficits Psych: calm - Constitutional Vitals: Temp Pulse Resp BP Pulse Ox 98.5 F 105 H 19 174/84 98 06/30/19 08:02 06/30/19 14:44 06/30/19 14:44 06/30/19 10:11 06/30/19 10:00 General appearance: Present: no acute distress, well-nourished Results - Labs CBC & Chem 7: 06/28/19 05:00 06/29/19 17:27 Labs: Laboratory Last Values WBC 11.5 K/mm3 (4.5-11.0) H 06/28/19 05:00 RBC 3.88 M/mm3 (3.65-5.03) 06/28/19 05:00 Hgb 11.0 gm/dl (10.1-14.3) 06/28/19 05:00 Hct 34.4 % (30.3-42.9) 06/28/19 05:00 MCV 89 fl (79-97) 06/28/19 05:00 MCH 28 pg (28-32) 06/28/19 05:00 MCHC 32 % (30-34) 06/28/19 05:00 RDW 16.4 % (13.2-15.2) H 06/28/19 05:00 Plt Count 450 K/mm3 (140-440) H 06/28/19 05:00 Lymph % (Auto) 7.0 % (13.4-35.0) L 06/28/19 05:00 [place] % (Auto) 4.3 % (0.0-7.3) 06/28/19 05:00 Eos % (Auto) 0.0 % (0.0-4.3) 06/28/19 05:00 Baso % (Auto) 0.1 % (0.0-1.8) 06/28/19 05:00 Lymph # 0.8 K/mm3 (1.2-5.4) L 06/28/19 05:00 [place] # 0.5 K/mm3 (0.0-0.8) 06/28/19 05:00 Eos # 0.0 K/mm3 (0.0-0.4) 06/28/19 05:00 Baso # 0.0 K/mm3 (0.0-0.1) 06/28/19 05:00 Seg Neutrophils % 88.6 % (40.0-70.0) H 06/28/19 05:00 Seg Neutrophils # 10.2 K/mm3 (1.8-7.7) H 06/28/19 05:00 PT 12.7 Sec. (12.2-14.9) 06/28/19 05:00 INR 0.94 (0.87-1.13) 06/28/19 05:00 APTT 30.7 Sec. (24.2-36.6) 06/28/19 05:00 D-Dimer 678.50 ng/mlDDU (0-234) H 06/28/19 10:35 Sodium 135 mmol/L (137-145) L 06/28/19 05:00 Potassium 5.2 mmol/L (3.6-5.0) H 06/28/19 05:00 Chloride 93.3 mmol/L (98-107) L 06/28/19 05:00 Carbon Dioxide 23 mmol/L (22-30) 06/28/19 05:00 Anion Gap 24 mmol/L 06/28/19 05:00 BUN 30 mg/dL (7-17) H 06/28/19 05:00 Creatinine 1.1 mg/dL (0.7-1.2) 06/28/19 05:00 Estimated GFR > 60 ml/min 06/28/19 05:00 BUN/Creatinine Ratio 27 % 06/28/19 05:00 Glucose 563 mg/dL (65-100) H* 06/29/19 17:27 POC Glucose 381 (70-105) H 06/30/19 12:44 Calcium 9.1 mg/dL (8.4-10.2) 06/28/19 05:00 Total Bilirubin 0.30 mg/dL (0.1-1.2) 06/26/19 19:01 AST 66 units/L (5-40) H 06/26/19 19:01 ALT 368 units/L (7-56) H 06/26/19 19:01 Alkaline Phosphatase 151 units/L (35-129) H 06/26/19 19:01 Troponin T 0.020 ng/mL (0.00-0.029) 06/26/19 19:01 NT-Pro-B Natriuret Pep 241.5 pg/mL (0-900) 06/26/19 19:01 Total Protein 7.3 g/dL (6.3-8.2) 06/26/19 19:01 Albumin 3.4 g/dL (3.9-5) L 06/26/19 19:01 Albumin/Globulin Ratio 0.9 % 06/26/19 19:01 Procalcitonin < 0.05 ng/mL (<0.15) 06/30/19 07:12 Active Medications - Current Medications Current Medications: Generic Name Dose Route Start Last Admin Trade Name Freq PRN Reason Stop Dose Admin Acetaminophen 650 mg 06/27/19 00:26 06/28/19 10:15 Tylenol PO 650 mg Q4H PRN Administration Pain MILD(1-3)/Fever >100.5/LAUREANO Acetaminophen/Hydrocodone Bitart 1 each 06/30/19 11:30 [place] 5/325 PO Q4H PRN Pain , Severe (7-10) Albuterol 2.5 mg 06/27/19 08:30 Proventil IH Q4HRT PRN Shortness Of Breath Albuterol/Ipratropium 1 ampul 06/27/19 14:00 06/30/19 14:22 Duoneb *Not For Prn Use* IH 1 ampul TIDRT RICHARD Administration Arformoterol Tartrate 15 mcg 06/27/19 20:00 06/30/19 08:43 Brovana Nebu IH 15 mcg Q12HRT RICHARD Administration Budesonide 0.5 mg 06/27/19 20:00 06/30/19 08:43 Pulmicort IH 0.5 mg Q12HRT RICHARD Administration Dextrose 50 ml 06/27/19 00:26 D50w (25gm) Syringe IV Q30MIN PRN Hypoglycemia Protocol Diphenhydramine HCl 25 mg 06/29/19 13:15 06/30/19 12:49 Benadryl PO 25 mg Q8H PRN Administration Itching Gabapentin 300 mg 06/27/19 05:15 06/30/19 12:43 Gabapentin PO 300 mg Q6HR RICHARD Administration Heparin Sodium (Porcine) 5,000 unit 06/27/19 06:00 06/30/19 14:00 Heparin SUB-Q 5,000 unit Q8HR RICHARD Administration Hydralazine HCl 10 mg 06/28/19 12:00 06/30/19 06:49 Apresoline IV 10 mg Q4H PRN Administration Blood Pressure Hydrochlorothiazide 12.5 mg 06/27/19 10:00 06/30/19 10:11 Hctz PO 12.5 mg BID RICHARD Administration Insulin Human Lispro 0 unit 06/27/19 16:30 06/30/19 12:42 Humalog SUB-Q 8 unit ACHS RICHARD Administration Protocol Lisinopril 20 mg 06/27/19 10:00 06/30/19 10:11 Zestril PO 20 mg BID RICHARD Administration Magnesium Hydroxide 30 ml 06/27/19 00:26 Milk Of Magnesia PO Q4H PRN Constipation Methylprednisolone Sodium Succinate 40 mg 06/29/19 22:00 06/30/19 10:10 Solu-Medrol IV 40 mg Q12HR RICHARD Administration Ondansetron HCl 4 mg 06/27/19 00:26 06/28/19 19:32 Zofran IV 4 mg Q8H PRN Administration Nausea And Vomiting Sodium Chloride 10 ml 06/27/19 10:00 06/30/19 10:15 Sodium Chloride Flush Syringe 10 Ml IV 10 ml BID RICHARD Administration Sodium Chloride 10 ml 06/27/19 00:26 06/29/19 06:20 Sodium Chloride Flush Syringe 10 Ml IV 10 ml PRN PRN Administration LINE FLUSH Temazepam 15 mg 06/27/19 21:18 06/30/19 00:33 Restoril PO 15 mg QHS PRN Administration Sleep
[2019-06-30] MEDS: INSULIN GLARGINE 100 UNITS/ML SUB-Q SCH (22:26)
[2019-07-01] MEDS: GABAPENTIN 300 MG CAP PO SCH ×5 (00:19→23:07)
[2019-07-01] MEDS: HEPARIN 5,000 UNIT/1 ML VIAL SUB-Q SCH ×3 (05:21→21:55)
[2019-07-01 06:29] LABS: Hematocrit 34.3 % (30.3-42.9); Hemoglobin 11.1 gm/dl (10.1-14.3); Mean Corpuscular HGB Conc 33 % (30-34); Mean Corpuscular Volume 88 fl (79-97); Platelet Count 485 K/mm3 (140-440); Red Blood Count 3.92 M/mm3 (3.65-5.03)
[2019-07-01 06:50] LABS: BUN/Creatinine Ratio 31; Blood Urea Nitrogen 28 mg/dL (7-17); Calcium 9.9 mg/dL (8.4-10.2); Hemolysis Index 1
[2019-07-01] MEDS: BUDESONIDE 0.5 MG/2 ML NEBU IH SCH ×2 (08:02→20:00)
[2019-07-01] MEDS: IPRATROPIUM/ALBUTEROL SULFATE 3 ML AMPUL.NEB IH SCH ×3 (08:02→20:01)
[2019-07-01] MEDS: ARFORMOTEROL 15 MCG/2 ML NEBU IH SCH ×2 (08:02→20:01)
[2019-07-01] MEDS: INSULIN LISPRO 100 UNIT/ML SUB-Q SCH ×4 (08:58→21:54)
[2019-07-01] MEDS: LISINOPRIL 20 MG TAB PO SCH ×2 (10:17→21:55)
[2019-07-01] MEDS: hydroCHLOROthiazide 12.5 MG CAP PO SCH ×2 (10:17→21:55)
[2019-07-01] MEDS: methylPREDNISolone Sod Succinate 40 MG/1 ML INJ IV SCH (10:18)
[2019-07-01] MEDS ORDERED: SODIUM CHLORIDE 0.9% 1000 ML 1,000 ML ONE (10:26)
--- NOTE | 2019-07-01 10:57 | Anesthesia Consultation ---
Anesthesia Consult and Med Hx Date of service: 07/01/19 - Airway Anesthetic Teeth Evaluation: Good ROM Head & Neck: Adequate Mental/Hyoid Distance: Adequate Mallampati Class: Class III Intubation Access Assessment: Possibly Difficult - Pre-Operative Health Status ASA Pre-Surgery Classification: ASA3 Proposed Anesthetic Plan: MAC - Pulmonary Hx Smoking: Yes (1/2 PPD) Hx Asthma: No Hx Respiratory Symptoms: No SOB: No COPD: No Home Oxygen Therapy: No Hx Pneumonia: No Hx Sleep Apnea: Yes - Cardiovascular System Hx Hypertension: Yes Hx Coronary Artery Disease: No Hx Heart Attack/AMI: No Hx Angina: No Hx Percutaneous Transluminal Coronary Angioplasty (PTCA): No Hx Cardia Arrhythmia: No Hx Pacemaker: No Hx Internal Defibrillator: No Hx Valvular Heart Disease: No Hx Heart Murmur: No Hx Peripheral Vascular Disease: No - Central Nervous System Hx Neuromuscular Disorder: No Hx Seizures: No CVA: No Hx Back Pain: No Hx Psychiatric Problems: No - Gastrointestinal Hx Ulcer: No Hx Gastroesophageal Reflux Disease: No - Endocrine Hx Renal Disease: No Hx End Stage Renal Disease: No Hx Cirrhosis: No Hx Liver Disease: No Hx Insulin Dependent Diabetes: No Hx Non-Insulin Dependent Diabetes: Yes Hx Thyroid Disease: No Hx Hypothyroidism: No Hx Hyperthyroidism: No - Hematic Hx Anemia: No Hx Sickle Cell Disease: No - Other Systems Hx Alcohol Use: Yes (occ.) Hx Substance Use: No Hx Cancer: No Hx Obesity: Yes
--- NOTE | 2019-07-01 10:58 | Anesthesia Day of Surgery ---
Anesthesia Day of Surgery - Day of Surgery Patient Examined: Yes Patient H&P Reviewed: Yes Patient is NPO: Yes
[2019-07-01] MEDS ORDERED: LIDOCAINE (1%) 10 MG/1 ML VIAL 20 ML MDV ONE (11:07)
[2019-07-01] MEDS ORDERED: LIDOCAINE VISCOUS 2% 15 ML ORAL LIQD ONE (11:08)
[2019-07-01] MEDS ORDERED: BENZOCAINE 20% TOP SPRAY 0.5 ML UNIT DOSE MM ONE (11:08)
[2019-07-01] MEDS ORDERED: PROPOFOL 200 MG/20 ML VIAL IV ONE ×2 (11:28)
--- NOTE | 2019-07-01 11:49 | Progress Note ---
Assessment and Plan Cultures Blood culture 06/27/19 no growth to date Assessment: 58 yo F PMHx COPD, HTN, DM2, tobacco abuse admitted with shortness of breath 1. Shortness of breath - with tree in bud opacities, numerous etiologies possible. Recommend pulm consult for possible bronch or to rule out AFB infection such as MAC. Will check urine histo and blasto given [place] expeosure, though she does not have constitutional symptoms. POssible interstitial disease secondary to smoking or other environmental factors. Would not adjust antibiotics at present given afebrile and mildly elevated white count. 2. DM2 - tight glycemic control 3. COPD 4. Tobacoo abuse Recs: - pulm consult placed - stopped azithromycin as procal negative. - urine histo and blasto ordered - When bronch performed please obtain cultures for aerobic/anaerobic/fungal/AFB - no need for isolation, more concerned about MAC. - ordered sputum culture - unsatisfactory quality for culture Thank you for the consult, we will continue to follow. [facility] M: [phone] O: [phone] F: [phone] Subjective Date of service: 07/01/19 Interval history: Afebrile, normal white count. Objective - Exam Narrative Exam: General Normal appearance, well developed, no acute distress Eyes - PERRLA, EOM intact ENT - Moist mucous membranes, no lymphadenopathy Neck - No noticeable or palpable swelling, redness or rash around throat or on face Lymph Nodes - No lymphadenopathy Cardiovascular - RRR no m/r/g, no JVD, no carotid bruits Lungs - Clear to auscultation, no use of accessory muscles, no crackles or wheezes. Skin - No rashes, skin warm and dry, no erythematous areas Abdomen - Normal bowel sounds, abdomen soft and nontender Extremities - No edema, cyanosis or clubbing Musculoskeletal - 5/5 strength, normal range of motion, no swollen or erythematous joints. Neurological Alert and oriented x 3, CN 2-12 grossly intact. - Constitutional Vitals: Vital Signs Temp Pulse Resp BP Pulse Ox 98.0 F 92 H 16 206/113 95 07/01/19 10:55 07/01/19 10:55 07/01/19 10:55 07/01/19 10:55 07/01/19 10:55 Temperature -Last 24 Hours Temperature 98.0 F Temperature 98.0 F Temperature 98.0 F Temperature 98.3 F Temperature 98.2 F Temperature 98.5 F Temperature 98.4 F Temperature 98.4 F - Labs CBC & Chem 7: 07/01/19 05:54 07/01/19 05:54 Labs: Abnormal lab results 06/30/19 06/30/19 06/30/19 Range/Units 12:44 17:28 21:30 WBC (4.5-11.0) K/mm3 RDW (13.2-15.2) % Plt Count (140-440) K/mm3 Sodium (137-145) mmol/L Potassium (3.6-5.0) mmol/L Chloride (98-107) mmol/L BUN (7-17) mg/dL Glucose (65-100) mg/dL POC Glucose 381 H 391 H 322 H (70-105) 07/01/19 07/01/19 07/01/19 Range/Units 05:54 05:54 08:45 WBC 11.2 H (4.5-11.0) K/mm3 RDW 16.0 H (13.2-15.2) % Plt Count 485 H (140-440) K/mm3 Sodium 136 L (137-145) mmol/L Potassium 5.1 H (3.6-5.0) mmol/L Chloride 97.4 L (98-107) mmol/L BUN 28 H (7-17) mg/dL Glucose 415 H (65-100) mg/dL POC Glucose 287 H (70-105)
--- NOTE | 2019-07-01 11:58 | Event Note ---
Date: 07/01/19 Patient brought to GI lab. Evaluated by Anesthesia. Nares tight so went through mouth with bite block. Unfortunately, patient with an abundance of fatty tissue in her upper airway. Saw vocal cords only once. After deep sedation, airway closed off, unable to advance scope. Scope retracted, chin thrust and oral airway placed. Did bag for few until patient became more alert and started breathing on her own. Procedure aborted. Patient most likely has severe DAVID. Needs weight loss and evaluation with sleep study. Can order induced sputum by RT to send for samples requested by ID. Will sign off.
[2019-07-01] MEDS ORDERED: INSULIN REGULAR, HUMAN 100 UNITS/1 ML ONE (12:21)
[2019-07-01] MEDS ORDERED: INSULIN REGULAR, HUMAN 100 UNITS/1 ML IV ONE (13:14)
--- NOTE | 2019-07-01 16:08 | Progress Note ---
Assessment and Plan Assessment and plan: Patient is a 58-year-old -[place] woman with known history of COPD, hypertension and diabetes mellitus. She presents to the emergency room today complaining of shortness of breath, cough fever which has been ongoing for about 10 days. Patient is an everyday smoker and she smokes less than half a pack of cigarette daily. She indicates that she flew to [facility] 06/17-03/[place] recently. She was so sick after flying to [place] that she could not go to the event. Since then she has been having worsening cough and shortness of breath with some low-grade fever at home. CTA chest shows tree-in-bud right lung atypical pneumonia, consulted ID. Sepsis pneumonia, poa: treat with abx and follow cultures RUL and RLL Aspiraiton pneumionia suspected, poa: treat with iv abx, consulted ID due to atypical nature of the pneumonia Acute COPD with acute bronchitis: continue iv steroid but start weaning down, nebs, and O2 Acute hypoxic respiratory failure, poa: resolving Hypertension: Resume routine home medications and monitor vital signs closely. Diabetes mellitus type 2, uncontrolled hyperglycemia on steroids and off metformin due to contrast dye, give one dose of Lantus and wean steroids, increase SSI also DVT prophylaxis: Patient placed on subcutaneous heparin. Full code status Dispo: continue inpatient care, weaned off O2 on 06/29/19 evening, Bronchoscopy today. Anticipate d/c tomorrow Needs outpatient sleep study History Interval history: Patient was seen and examined. Follow-up on current diagnosis. No overnight events reported to me. Patient denies any chest pain, shortness breath, nausea/vomiting or severe headaches. Imaging, nursing note, chart, labs and old chart reviewed. Discussed with patient. Hospitalist Physical - Physical exam Narrative exam: Gen: ill appearing, NAD, Awake, Alert, Orientated HEENT: NCAT, EOMI, PERRL, OP Clear Neck: supple, no adenopathy, no thyromegaly, no JVD CVS/Heart: RRR, normal S1S2, pulses present bilaterally Chest/Lungs: diminished bs bilateral, Symmetrical chest expansion, good air entry bilaterally GI/Abdomen: soft, NTND, good bowel sounds, no guarding or rebound /Bladder: no suprapubic tenderness, no CVA or paraspinal tenderness Extermity/Skin: no c/c/e, no obvious rash MSK: FROM x 4 Neuro: CN 2-12 grossly intact, no new focal deficits Psych: calm - Constitutional Vitals: Temp Pulse Resp BP Pulse Ox 98.2 F 96 H 18 135/76 95 07/01/19 13:15 07/01/19 14:37 07/01/19 14:37 07/01/19 13:55 07/01/19 13:55 General appearance: Present: no acute distress, well-nourished Results - Labs CBC & Chem 7: 07/01/19 05:54 07/01/19 05:54 Labs: Laboratory Last Values WBC 11.2 K/mm3 (4.5-11.0) H 07/01/19 05:54 RBC 3.92 M/mm3 (3.65-5.03) 07/01/19 05:54 Hgb 11.1 gm/dl (10.1-14.3) 07/01/19 05:54 Hct 34.3 % (30.3-42.9) 07/01/19 05:54 MCV 88 fl (79-97) 07/01/19 05:54 MCH 28 pg (28-32) 07/01/19 05:54 MCHC 33 % (30-34) 07/01/19 05:54 RDW 16.0 % (13.2-15.2) H 07/01/19 05:54 Plt Count 485 K/mm3 (140-440) H 07/01/19 05:54 Lymph % (Auto) 7.0 % (13.4-35.0) L 06/28/19 05:00 [place] % (Auto) 4.3 % (0.0-7.3) 06/28/19 05:00 Eos % (Auto) 0.0 % (0.0-4.3) 06/28/19 05:00 Baso % (Auto) 0.1 % (0.0-1.8) 06/28/19 05:00 Lymph # 0.8 K/mm3 (1.2-5.4) L 06/28/19 05:00 [place] # 0.5 K/mm3 (0.0-0.8) 06/28/19 05:00 Eos # 0.0 K/mm3 (0.0-0.4) 06/28/19 05:00 Baso # 0.0 K/mm3 (0.0-0.1) 06/28/19 05:00 Seg Neutrophils % 88.6 % (40.0-70.0) H 06/28/19 05:00 Seg Neutrophils # 10.2 K/mm3 (1.8-7.7) H 06/28/19 05:00 PT 12.7 Sec. (12.2-14.9) 06/28/19 05:00 INR 0.94 (0.87-1.13) 06/28/19 05:00 APTT 30.7 Sec. (24.2-36.6) 06/28/19 05:00 D-Dimer 678.50 ng/mlDDU (0-234) H 06/28/19 10:35 Sodium 136 mmol/L (137-145) L 07/01/19 05:54 Potassium 5.1 mmol/L (3.6-5.0) H 07/01/19 05:54 Chloride 97.4 mmol/L (98-107) L 07/01/19 05:54 Carbon Dioxide 25 mmol/L (22-30) 07/01/19 05:54 Anion Gap 19 mmol/L 07/01/19 05:54 BUN 28 mg/dL (7-17) H 07/01/19 05:54 Creatinine 0.9 mg/dL (0.7-1.2) 07/01/19 05:54 Estimated GFR > 60 ml/min 07/01/19 05:54 BUN/Creatinine Ratio 31 % 07/01/19 05:54 Glucose 415 mg/dL (65-100) H 07/01/19 05:54 POC Glucose 258 (70-105) H 07/01/19 12:19 Calcium 9.9 mg/dL (8.4-10.2) 07/01/19 05:54 Total Bilirubin 0.30 mg/dL (0.1-1.2) 06/26/19 19:01 AST 66 units/L (5-40) H 06/26/19 19:01 ALT 368 units/L (7-56) H 06/26/19 19:01 Alkaline Phosphatase 151 units/L (35-129) H 06/26/19 19:01 Troponin T 0.020 ng/mL (0.00-0.029) 06/26/19 19:01 NT-Pro-B Natriuret Pep 241.5 pg/mL (0-900) 06/26/19 19:01 Total Protein 7.3 g/dL (6.3-8.2) 06/26/19 19:01 Albumin 3.4 g/dL (3.9-5) L 06/26/19 19:01 Albumin/Globulin Ratio 0.9 % 06/26/19 19:01 Procalcitonin < 0.05 ng/mL (<0.15) 06/30/19 07:12 Active Medications - Current Medications Current Medications: Generic Name Dose Route Start Last Admin Trade Name Freq PRN Reason Stop Dose Admin Acetaminophen 650 mg 06/27/19 00:26 06/28/19 10:15 Tylenol PO 650 mg Q4H PRN Administration Pain MILD(1-3)/Fever >100.5/LAUREANO Acetaminophen/Hydrocodone Bitart 1 each 06/30/19 11:30 [place] 5/325 PO Q4H PRN Pain , Severe (7-10) Albuterol 2.5 mg 06/27/19 08:30 Proventil IH Q4HRT PRN Shortness Of Breath Albuterol/Ipratropium 1 ampul 06/27/19 14:00 07/01/19 14:37 Duoneb *Not For Prn Use* IH 1 ampul TIDRT RICHARD Administration Arformoterol Tartrate 15 mcg 06/27/19 20:00 07/01/19 08:02 Brovana Nebu IH 15 mcg Q12HRT RICHARD Administration Budesonide 0.5 mg 06/27/19 20:00 07/01/19 08:02 Pulmicort IH 0.5 mg Q12HRT RICHARD Administration Dextrose 50 ml 06/27/19 00:26 D50w (25gm) Syringe IV Q30MIN PRN Hypoglycemia Protocol Diphenhydramine HCl 25 mg 06/29/19 13:15 06/30/19 22:25 Benadryl PO 25 mg Q8H PRN Administration Itching Gabapentin 300 mg 06/27/19 05:15 07/01/19 12:35 Gabapentin PO Not Given Q6HR RICHARD Heparin Sodium (Porcine) 5,000 unit 06/27/19 06:00 07/01/19 14:00 Heparin SUB-Q 5,000 unit Q8HR RICHARD Administration Hydralazine HCl 10 mg 06/28/19 12:00 06/30/19 06:49 Apresoline IV 10 mg Q4H PRN Administration Blood Pressure Hydrochlorothiazide 12.5 mg 06/27/19 10:00 07/01/19 10:17 Hctz PO 12.5 mg BID RICHARD Administration Insulin Glargine 20 units 06/30/19 22:00 06/30/19 22:26 Lantus SUB-Q 20 units QHS RICHARD Administration Insulin Human Lispro 0 unit 06/27/19 16:30 07/01/19 12:15 Humalog SUB-Q Not Given [facility] Protocol Lisinopril 20 mg 06/27/19 10:00 07/01/19 10:17 Zestril PO 20 mg BID RICHARD Administration Magnesium Hydroxide 30 ml 06/27/19 00:26 Milk Of Magnesia PO Q4H PRN Constipation Ondansetron HCl 4 mg 06/27/19 00:26 06/28/19 19:32 Zofran IV 4 mg Q8H PRN Administration Nausea And Vomiting Prednisone 60 mg 07/02/19 10:00 Deltasone PO QDAY RICHARD Sodium Chloride 10 ml 06/27/19 10:00 07/01/19 10:18 Sodium Chloride Flush Syringe 10 Ml IV 10 ml BID RICHARD Administration Sodium Chloride 10 ml 06/27/19 00:26 06/29/19 06:20 Sodium Chloride Flush Syringe 10 Ml IV 10 ml PRN PRN Administration LINE FLUSH Temazepam 15 mg 06/27/19 21:18 06/30/19 22:29 Restoril PO 15 mg QHS PRN Administration Sleep
[2019-07-01] MEDS ORDERED: SODIUM POLYSTYRENE 15 GM/60 ML ORAL LIQD PO ONE (17:06)
[2019-07-01] MEDS: INSULIN GLARGINE 100 UNITS/ML SUB-Q SCH (21:54)
[2019-07-01] MEDS: TEMAZEPAM 15 MG CAP PO PRN (22:51)
[2019-07-02] MEDS: HEPARIN 5,000 UNIT/1 ML VIAL SUB-Q SCH ×3 (06:30→21:43)
[2019-07-02] MEDS: GABAPENTIN 300 MG CAP PO SCH ×3 (06:30→18:42)
[2019-07-02] MEDS: BUDESONIDE 0.5 MG/2 ML NEBU IH SCH ×2 (07:51→20:57)
[2019-07-02] MEDS: IPRATROPIUM/ALBUTEROL SULFATE 3 ML AMPUL.NEB IH SCH (07:51)
[2019-07-02] MEDS: ARFORMOTEROL 15 MCG/2 ML NEBU IH SCH ×2 (07:51→20:57)
[2019-07-02] MEDS: hydrALAZINE 20 MG/1 ML INJ IV PRN ×2 (08:38→13:35)
[2019-07-02] MEDS: INSULIN LISPRO 100 UNIT/ML SUB-Q SCH ×4 (08:40→22:58)
[2019-07-02] MEDS: predniSONE 20 MG TAB PO SCH (09:29)
[2019-07-02] MEDS: LISINOPRIL 20 MG TAB PO SCH ×2 (09:30→21:42)
[2019-07-02] MEDS: hydroCHLOROthiazide 12.5 MG CAP PO SCH ×2 (09:30→21:43)
--- NOTE | 2019-07-02 12:56 | Progress Note ---
Assessment and Plan Assessment and plan: Patient is a 58-year-old -[place] woman with known history of COPD, hypertension and diabetes mellitus. She presents to the emergency room today complaining of shortness of breath, cough fever which has been ongoing for about 10 days. Patient is an everyday smoker and she smokes less than half a pack of cigarette daily. She indicates that she flew to [facility] 06/17-03/31 recently. She was so sick after flying to [place] that she could not go to the event. Since then she has been having worsening cough and shortness of breath with some low-grade fever at home. CTA chest shows tree-in-bud right lung atypical pneumonia, consulted ID and pulmonary: Patient has unsuccessful bronchoscopy on 07/01/19 Sepsis pneumonia, poa: treat with abx and cultures negative RUL and RLL Aspiraiton pneumionia suspected, poa: treat with iv abx, consulted ID due to atypical nature of the pneumonia Acute COPD with acute bronchitis: continue iv steroid but start weaning down, nebs, and O2, needs outpatient sleep study (she voiced understanding) Acute hypoxic respiratory failure, poa: resolving Hypertension: Resume routine home medications and monitor vital signs closely. Diabetes mellitus type 2, uncontrolled hyperglycemia better since steroid weaned down: restart home Metformin with ssi DVT prophylaxis: Patient placed on subcutaneous heparin. Full code status Dispo: continue inpatient care, weaned off O2 on 06/29/19 evening, trying to d/c today but BP is 190/111, will add Norvasc and give hydralazine iv. Patient ask for $4 medications if possible Patient request [employer] short term medial leave form to be filled out History Interval history: Patient was seen and examined. Follow-up on current diagnosis. No overnight events reported to me. Patient denies any chest pain, shortness breath, nausea/vomiting or severe headaches. Imaging, nursing note, chart, labs and old chart reviewed. Discussed with patient. She is walking the hallways without O2 and is no distress. Hospitalist Physical - Physical exam Narrative exam: Gen: bmi 43.7, NAD, Awake, Alert, Orientated HEENT: NCAT, EOMI, PERRL, OP Clear Neck: supple, no adenopathy, no thyromegaly, no JVD CVS/Heart: RRR, normal S1S2, pulses present bilaterally Chest/Lungs: much improved diminished bs bilateral, Symmetrical chest expansion, good air entry bilaterally GI/Abdomen: soft, NTND, good bowel sounds, no guarding or rebound /Bladder: no suprapubic tenderness, no CVA or paraspinal tenderness Extermity/Skin: no c/c/e, no obvious rash MSK: FROM x 4 Neuro: CN 2-12 grossly intact, no new focal deficits Psych: calm - Constitutional Vitals: Temp Pulse Resp BP Pulse Ox 97.4 F L 98 H 20 190/111 95 07/02/19 07:22 07/02/19 09:30 07/02/19 08:25 07/02/19 09:30 07/02/19 07:22 General appearance: Present: no acute distress, well-nourished Results - Labs CBC & Chem 7: 07/01/19 05:54 07/01/19 05:54 Labs: Laboratory Last Values WBC 11.2 K/mm3 (4.5-11.0) H 07/01/19 05:54 RBC 3.92 M/mm3 (3.65-5.03) 07/01/19 05:54 Hgb 11.1 gm/dl (10.1-14.3) 07/01/19 05:54 Hct 34.3 % (30.3-42.9) 07/01/19 05:54 MCV 88 fl (79-97) 07/01/19 05:54 MCH 28 pg (28-32) 07/01/19 05:54 MCHC 33 % (30-34) 07/01/19 05:54 RDW 16.0 % (13.2-15.2) H 07/01/19 05:54 Plt Count 485 K/mm3 (140-440) H 07/01/19 05:54 Lymph % (Auto) 7.0 % (13.4-35.0) L 06/28/19 05:00 [place] % (Auto) 4.3 % (0.0-7.3) 06/28/19 05:00 Eos % (Auto) 0.0 % (0.0-4.3) 06/28/19 05:00 Baso % (Auto) 0.1 % (0.0-1.8) 06/28/19 05:00 Lymph # 0.8 K/mm3 (1.2-5.4) L 06/28/19 05:00 [place] # 0.5 K/mm3 (0.0-0.8) 06/28/19 05:00 Eos # 0.0 K/mm3 (0.0-0.4) 06/28/19 05:00 Baso # 0.0 K/mm3 (0.0-0.1) 06/28/19 05:00 Seg Neutrophils % 88.6 % (40.0-70.0) H 06/28/19 05:00 Seg Neutrophils # 10.2 K/mm3 (1.8-7.7) H 06/28/19 05:00 PT 12.7 Sec. (12.2-14.9) 06/28/19 05:00 INR 0.94 (0.87-1.13) 06/28/19 05:00 APTT 30.7 Sec. (24.2-36.6) 06/28/19 05:00 D-Dimer 678.50 ng/mlDDU (0-234) H 06/28/19 10:35 Sodium 136 mmol/L (137-145) L 07/01/19 05:54 Potassium 5.1 mmol/L (3.6-5.0) H 07/01/19 05:54 Chloride 97.4 mmol/L (98-107) L 07/01/19 05:54 Carbon Dioxide 25 mmol/L (22-30) 07/01/19 05:54 Anion Gap 19 mmol/L 07/01/19 05:54 BUN 28 mg/dL (7-17) H 07/01/19 05:54 Creatinine 0.9 mg/dL (0.7-1.2) 07/01/19 05:54 Estimated GFR > 60 ml/min 07/01/19 05:54 BUN/Creatinine Ratio 31 % 07/01/19 05:54 Glucose 415 mg/dL (65-100) H 07/01/19 05:54 POC Glucose 217 (70-105) H 07/02/19 11:54 Calcium 9.9 mg/dL (8.4-10.2) 07/01/19 05:54 Total Bilirubin 0.30 mg/dL (0.1-1.2) 06/26/19 19:01 AST 66 units/L (5-40) H 06/26/19 19:01 ALT 368 units/L (7-56) H 06/26/19 19:01 Alkaline Phosphatase 151 units/L (35-129) H 06/26/19 19:01 Troponin T 0.020 ng/mL (0.00-0.029) 06/26/19 19:01 NT-Pro-B Natriuret Pep 241.5 pg/mL (0-900) 06/26/19 19:01 Total Protein 7.3 g/dL (6.3-8.2) 06/26/19 19:01 Albumin 3.4 g/dL (3.9-5) L 06/26/19 19:01 Albumin/Globulin Ratio 0.9 % 06/26/19 19:01 Procalcitonin < 0.05 ng/mL (<0.15) 06/30/19 07:12 Active Medications - Current Medications Current Medications: Generic Name Dose Route Start Last Admin Trade Name Freq PRN Reason Stop Dose Admin Acetaminophen 650 mg 06/27/19 00:26 06/28/19 10:15 Tylenol PO 650 mg Q4H PRN Administration Pain MILD(1-3)/Fever >100.5/LAUREANO Acetaminophen/Hydrocodone Bitart 1 each 06/30/19 11:30 [place] 5/325 PO Q4H PRN Pain , Severe (7-10) Albuterol 2.5 mg 06/27/19 08:30 Proventil IH Q4HRT PRN Shortness Of Breath Amlodipine Besylate 10 mg 07/02/19 13:00 Amlodipine PO QDAY RICHARD Arformoterol Tartrate 15 mcg 06/27/19 20:00 07/02/19 07:51 Brovana Nebu IH 15 mcg Q12HRT RICHARD Administration Budesonide 0.5 mg 06/27/19 20:00 07/02/19 07:51 Pulmicort IH 0.5 mg Q12HRT RICHARD Administration Dextrose 50 ml 06/27/19 00:26 D50w (25gm) Syringe IV Q30MIN PRN Hypoglycemia Protocol Diphenhydramine HCl 25 mg 06/29/19 13:15 06/30/19 22:25 Benadryl PO 25 mg Q8H PRN Administration Itching Gabapentin 300 mg 06/27/19 05:15 07/02/19 06:30 Gabapentin PO 300 mg Q6HR RICHARD Administration Heparin Sodium (Porcine) 5,000 unit 06/27/19 06:00 07/02/19 06:30 Heparin SUB-Q 5,000 unit Q8HR RICHARD Administration Hydralazine HCl 10 mg 06/28/19 12:00 07/02/19 08:38 Apresoline IV 10 mg Q4H PRN Administration Blood Pressure Hydrochlorothiazide 12.5 mg 06/27/19 10:00 07/02/19 09:30 Hctz PO 12.5 mg BID RICHARD Administration Insulin Human Isoph/Insulin Regular 20 unit 07/02/19 17:00 Humulin 70/30 SUB-Q BIDDIAB RICHARD Insulin Human Lispro 0 unit 06/27/19 16:30 07/02/19 08:40 Humalog SUB-Q 6 unit ACHS RICHARD Administration Protocol Lisinopril 20 mg 06/27/19 10:00 07/02/19 09:30 Zestril PO 20 mg BID RICHARD Administration Ondansetron HCl 4 mg 06/27/19 00:26 06/28/19 19:32 Zofran IV 4 mg Q8H PRN Administration Nausea And Vomiting Prednisone 60 mg 07/02/19 10:00 07/02/19 09:29 Deltasone PO 60 mg QDAY RICHARD Administration Sodium Chloride 10 ml 06/27/19 10:00 07/02/19 09:30 Sodium Chloride Flush Syringe 10 Ml IV 10 ml BID RICHARD Administration Sodium Chloride 10 ml 06/27/19 00:26 06/29/19 06:20 Sodium Chloride Flush Syringe 10 Ml IV 10 ml PRN PRN Administration LINE FLUSH Temazepam 15 mg 06/27/19 21:18 07/01/19 22:51 Restoril PO 15 mg QHS PRN Administration Sleep
[2019-07-02] MEDS: diphenhydrAMINE 25 MG CAP PO PRN (13:15)
[2019-07-02] MEDS: amLODIPine 10 MG TAB PO SCH (13:15)
[2019-07-02] MEDS ORDERED: INSULIN NPH/REGULAR 70/30 INJ SUB-Q SCH (17:00)
[2019-07-02] MEDS: metFORMIN 500 MG TAB PO SCH (18:42)
[2019-07-02] MEDS: TEMAZEPAM 15 MG CAP PO PRN (22:58)
[2019-07-03] MEDS: GABAPENTIN 300 MG CAP PO SCH ×2 (00:17→05:33)
[2019-07-03] MEDS: diphenhydrAMINE 25 MG CAP PO PRN (00:17)
[2019-07-03 05:04] VITALS: BP 157/86
[2019-07-03] MEDS: HEPARIN 5,000 UNIT/1 ML VIAL SUB-Q SCH (05:04)
[2019-07-03] MEDS: INSULIN LISPRO 100 UNIT/ML SUB-Q SCH (08:38)
[2019-07-03] MEDS: BUDESONIDE 0.5 MG/2 ML NEBU IH SCH (08:40)
[2019-07-03] MEDS: ARFORMOTEROL 15 MCG/2 ML NEBU IH SCH (08:40)
[2019-07-03 09:25] LABS: Hematocrit 37.7 % (30.3-42.9); Hemoglobin 12.2 gm/dl (10.1-14.3); Mean Corpuscular HGB Conc 32 % (30-34); Mean Corpuscular Volume 87 fl (79-97); Platelet Count 589 K/mm3 (140-440); Red Blood Count 4.35 M/mm3 (3.65-5.03); Red Cell Distribution Width 16.2 % (13.2-15.2)
[2019-07-03 09:54] LABS: BUN/Creatinine Ratio 36; Blood Urea Nitrogen 29 mg/dL (7-17); Calcium 9.4 mg/dL (8.4-10.2); Hemolysis Index 51
[2019-07-03] MEDS: amLODIPine 10 MG TAB PO SCH (10:37)
[2019-07-03] MEDS: metFORMIN 500 MG TAB PO SCH (10:37)
[2019-07-03] MEDS: LISINOPRIL 20 MG TAB PO SCH (10:38)
[2019-07-03] MEDS: hydroCHLOROthiazide 12.5 MG CAP PO SCH (10:38)
[2019-07-03] MEDS: predniSONE 20 MG TAB PO SCH (10:38)
--- NOTE | 2019-07-03 11:40 | Discharge Summary ---
Providers - Providers Date of Admission: 06/27/19 00:06 Date of discharge: 07/03/19 Attending physician: AKSHAT NIXON 06/28/19 16:05 Consult to Physician [CONS] Routine Comment: Consulting Provider: PIPPA RIVERO Physician Instructions: Reason For Exam: Atypical pneumonia on CT chest Primary care physician: ENERGY EFFICIENCY ENGINEER Hospitalization Condition: Stable Hospital course: Patient is a 58-year-old -Armenian woman with known history of COPD, hypertension and diabetes mellitus. She presents to the emergency room today complaining of shortness of breath, cough fever which has been ongoing for about 10 days. Patient is an everyday smoker and she smokes less than half a pack of cigarette daily. She indicates that she flew to [facility] 06/17-03/[place] recently. She was so sick after flying to [place] that she could not go to the event. Since then she has been having worsening cough and shortness of breath with some low-grade fever at home. CTA chest shows tree-in-bud right lung atypical pneumonia, consulted ID and pulmonary: Patient has unsuccessful bronchoscopy on 07/01/19, ?severe sleep apnea, needs outpatient sleep study and PFTs. Discharge Diagnoses: Sepsis pneumonia, poa: treated with abx and cultures negative RUL and RLL Aspiraiton pneumionia suspected, poa: treat with iv abx, consulted ID due to atypical nature of the pneumonia Acute COPD with acute bronchitis: continue iv steroid but start weaning down, nebs, and O2, needs outpatient sleep study (she voiced understanding) Acute hypoxic respiratory failure, poa: resolving Hypertension, malignant: added Norvasc Diabetes mellitus type 2, uncontrolled hyperglycemia better since steroid weaned down: restart home Metformin with ssi DVT prophylaxis: Patient placed on subcutaneous heparin. Full code status Patient requested [employer] short term medial leave form to be filled out, which I obliged Disposition: DC-01 TO HOME OR SELFCARE Time spent for discharge: 36 minutes Core Measure Documentation - Palliative Care Palliative Care/ Comfort Measures: Not Applicable - Core Measures Any of the following diagnoses?: none - VTE Discharge Requirements Deep Vein Thrombosis/Pulmonary Embolism Present on Admission: No Has pt received <5 days of overlap therapy or INR<2.0: No Anticoagulant overlap therapy prescribed at discharge: No Contraindication No Overlap Therapy order at DC: Not Indicated Exam - Physical Exam Narrative exam: Gen: bmi 43.7, NAD, Awake, Alert, Orientated HEENT: NCAT, EOMI, PERRL, OP Clear Neck: supple, no adenopathy, no thyromegaly, no JVD CVS/Heart: RRR, normal S1S2, pulses present bilaterally Chest/Lungs: much improved diminished bs bilateral, Symmetrical chest expansion, good air entry bilaterally GI/Abdomen: soft, NTND, good bowel sounds, no guarding or rebound /Bladder: no suprapubic tenderness, no CVA or paraspinal tenderness Extermity/Skin: no c/c/e, no obvious rash MSK: FROM x 4 Neuro: CN 2-12 grossly intact, no new focal deficits Psych: calm - Constitutional Vitals: Temp Pulse Resp BP Pulse Ox 98.0 F 95 H 18 157/86 96 07/03/19 04:46 07/03/19 10:00 07/03/19 08:00 07/03/19 05:03 07/03/19 04:46 Plan Activity: other (no strenous activity unless cleared by PCP) Diet: low salt, diabetic Special Instructions: record daily BP diary, record blood sugar diary (three times a day) Additional Instructions: You need a sleep study and Pulmonary Function Tests (PFTs) with Dr. Stauffer Follow up with: [facility] [Provider Group] - 7 Days SANIYA STAUFFER MD [Staff Physician] - 7 Days PPIPA RIVERO MD [Staff Physician] - 7 Days Prescriptions: Temazepam [Restoril] 15 mg PO QHS PRN #15 capsule PRN Reason: Sleep amLODIPine 10 mg PO QDAY #30 tablet predniSONE [Deltasone] 1 dose PO QDAY #23 tablet Gabapentin 300 mg PO Q6HR #60 capsule metFORMIN 1,000 mg PO BID #60 ALBUTEROL Inhaler (OR & NICU) [ProAir HFA Inhaler] 2 puff IH QID PRN #8.5 gram PRN Reason: Shortness Of Breath Budesonide/Formoterol Fumarate [Symbicort 160-4.5 Mcg Inhaler] 2 puff IH BID #1 hfa.aer.ad Lisinopril/Hydrochlorothiazide [Zestoretic 20-25 mg] 1 tab PO QDAY #30 tab
== END 2019-07-03 14:04 | disposition home or self-care (01) | DRG 871 ==
LOC: ED 16:10 → 4A 06-27 00:06
PROVIDERS: ADMIT Internal Medicine Geriatric Medicine; ATTEND Internal Medicine
PROC: 3E0234Z Introduction of Serum, Toxoid and Vaccine into Muscle, Percutaneous Approach (ICD-10-PCS; principal; 2019-06-27)
PROC: 0DJ08ZZ Inspection of Upper Intestinal Tract, Via Natural or Artificial Opening Endoscopic (ICD-10-PCS; 2019-07-01)
DX: A41.9 Sepsis, unspecified organism (principal); J96.01 Acute respiratory failure with hypoxia; J69.0 Pneumonitis due to inhalation of food and vomit; J44.1 Chronic obstructive pulmonary disease with (acute) exacerbation; Z68.41 Body mass index [BMI] 40.0-44.9, adult; G47.30 Sleep apnea, unspecified; I10 Essential (primary) hypertension; E11.65 Type 2 diabetes mellitus with hyperglycemia; F17.210 Nicotine dependence, cigarettes, uncomplicated; R74.0 Nonspecific elevation of levels of transaminase and lactic acid dehydrogenase [LDH]; E66.01 Morbid (severe) obesity due to excess calories; J20.9 Acute bronchitis, unspecified; Z23 Encounter for immunization; Z79.899 Other long term (current) drug therapy; Z88.8 Allergy status to other drugs, medicaments and biological substances; Z90.49 Acquired absence of other specified parts of digestive tract; Z83.3 Family history of diabetes mellitus; Z82.49 Family history of ischemic heart disease and other diseases of the circulatory system; Z71.3 Dietary counseling and surveillance; Z71.6 Tobacco abuse counseling
CPT/HCPCS: 36415; 71046; 71275; 80048; 80053; 82947; 82962; 83036; 83880; 84145; 84484; 85025; 85027; 85379; 85610; 85730; 87040; 87205; 90686; 90732; 93005; 93010; 94640; 94644; 94760; 99406; G0378; J0360; J0456; J1644; J1815; J1940; J1956; J2405; J2704; J2920; J2930; J7030; J7050; J7512; Q9967

== ENCOUNTER 2020-01-17 14:21 | Inpatient (IN) | payer OTHER, SELFPAY ==
--- NOTE | 2020-01-17 15:02 | Emergency Department Report ---
ED Shortness of Breath HPI - General Chief Complaint: Dyspnea/Respdistress Stated Complaint: SOB Time Seen by Provider: 01/17/20 14:36 Source: patient Mode of arrival: Wheelchair Limitations: No Limitations - History of Present Illness Initial Comments: Patient is 59 years old female with history of hypertension and diabetes. Patient presented to the ER complaining of difficulty breathing and shortness of breath for the last 2 days. Patient stated that symptoms getting worse today. Patient initial oxygen saturation was 72% on room air improved to 95% on a nonrebreather. Patient denied any fever or chills. Patient also denied any chest pain. Patient stated that she work at [employer] and 2 of her coworker tested positive for COVID-19. MD Complaint: shortness of breath, cough - Related Data Previous Rx's Medication Instructions Recorded Last Taken Type Acetaminophen [Acetaminophen TAB] 1 tab PO Q4H PRN #15 tablet 07/03/19 Unknown Rx Albuterol Mdi (or & Nicu Only) 2 puff IH QID PRN #8.5 gram 07/03/19 Unknown Rx [ProAir HFA Inhaler] Budesonide/Formoterol Fumarate 2 puff IH BID #1 hfa.aer.ad 07/03/19 Unknown Rx [Symbicort 160-4.5 Mcg Inhaler] Gabapentin 300 mg PO Q6HR #60 capsule 07/03/19 Unknown Rx Lisinopril/Hydrochlorothiazide 1 tab PO QDAY #30 tab 07/03/19 Unknown Rx [Zestoretic 20-25 mg] Temazepam [Restoril] 15 mg PO QHS PRN #15 capsule 07/03/19 Unknown Rx amLODIPine 10 mg PO QDAY #30 tablet 07/03/19 Unknown Rx diphenhydrAMINE [Benadryl CAP] 25 mg PO Q8H PRN capsule 07/03/19 Unknown Rx metFORMIN 1,000 mg PO BID #60 07/03/19 Unknown Rx predniSONE [Deltasone] 1 dose PO QDAY #23 tablet 07/03/19 Unknown Rx Allergies Allergy/AdvReac Type Severity Reaction Status Date / Time prochlorperazine Allergy Unknown Verified 01/17/20 14:27 [From Compazine] ED Review of Systems ROS: Stated complaint: SOB Other details as noted in HPI Comment: All other systems reviewed and negative Constitutional: denies: chills, fever Respiratory: cough, shortness of breath, SOB with exertion, SOB at rest. denies: wheezing Cardiovascular: denies: chest pain, palpitations Gastrointestinal: denies: abdominal pain, nausea Musculoskeletal: denies: back pain Neurological: denies: headache, weakness, numbness, paresthesias, confusion, abnormal gait ED Past Medical Hx - Past Medical History Previous Medical History?: Yes Hx Hypertension: Yes Hx Heart Attack/AMI: No Hx Diabetes: Yes Hx Liver Disease: No Hx Renal Disease: No Hx Sickle Cell Disease: No Hx Seizures: No Hx Asthma: No Hx COPD: No - Surgical History Past Surgical History?: Yes Hx Pacemaker: No Hx Internal Defibrillator: No Hx Appendectomy: Yes Additional Surgical History: c sections x 2. abd hernia x 5. appendectomy - Social History Smoking Status: Former Smoker Substance Use Type: None - Medications Home Medications: Home Medications Medication Instructions Recorded Confirmed Last Taken Type Acetaminophen [Acetaminophen TAB] 1 tab PO Q4H PRN #15 tablet 07/03/19 Unknown Rx Albuterol Mdi (or & Nicu Only) 2 puff IH QID PRN #8.5 gram 07/03/19 Unknown Rx [ProAir HFA Inhaler] Budesonide/Formoterol Fumarate 2 puff IH BID #1 hfa.aer.ad 07/03/19 Unknown Rx [Symbicort 160-4.5 Mcg Inhaler] Gabapentin 300 mg PO Q6HR #60 capsule 07/03/19 Unknown Rx Lisinopril/Hydrochlorothiazide 1 tab PO QDAY #30 tab 07/03/19 Unknown Rx [Zestoretic 20-25 mg] Temazepam [Restoril] 15 mg PO QHS PRN #15 capsule 07/03/19 Unknown Rx amLODIPine 10 mg PO QDAY #30 tablet 07/03/19 Unknown Rx diphenhydrAMINE [Benadryl CAP] 25 mg PO Q8H PRN capsule 07/03/19 Unknown Rx metFORMIN 1,000 mg PO BID #60 07/03/19 Unknown Rx predniSONE [Deltasone] 1 dose PO QDAY #23 tablet 07/03/19 Unknown Rx ED Physical Exam - General Limitations: No Limitations General appearance: alert, in distress - Head Head exam: Present: atraumatic, normocephalic, normal inspection - Eye Eye exam: Present: normal appearance - ENT ENT exam: Present: normal exam, normal orophraynx, mucous membranes moist - Neck Neck exam: Present: normal inspection, full ROM. Absent: tenderness, meningismus, lymphadenopathy, thyromegaly - Respiratory Respiratory exam: Present: normal lung sounds bilaterally, respiratory distress (Moderate respiratory distress). Absent: wheezes, rales, rhonchi - Cardiovascular Cardiovascular Exam: Present: regular rate, normal rhythm, normal heart sounds - GI/Abdominal GI/Abdominal exam: Present: soft, normal bowel sounds. Absent: distended, tenderness, guarding, rebound, rigid, organomegaly, mass, bruit, pulsatile mass, hernia - Extremities Exam Extremities exam: Present: normal inspection, full ROM, normal capillary refill. Absent: pedal edema, calf tenderness - Back Exam Back exam: Present: normal inspection, full ROM. Absent: CVA tenderness (R), CVA tenderness (L) - Neurological Exam Neurological exam: Present: alert, oriented X3, CN II-XII intact - Psychiatric Psychiatric exam: Present: normal mood - Skin Skin exam: Present: warm, intact, normal color ED Course Vital Signs 01/17/20 01/17/20 01/17/20 14:26 14:27 14:35 Temperature 97.3 F L Pulse Rate 91 H Respiratory 20 35 H Rate Blood Pressure 165/97 Blood Pressure [Left] O2 Sat by Pulse 72 L 87 70 L Oximetry 01/17/20 01/17/20 01/17/20 14:45 15:15 15:31 Temperature Pulse Rate 94 H Respiratory 30 H Rate Blood Pressure 160/103 159/106 159/106 Blood Pressure [Left] O2 Sat by Pulse 97 98 97 Oximetry 01/17/20 01/17/20 01/17/20 16:01 16:31 17:00 Temperature Pulse Rate 95 H 94 H Respiratory 26 H 21 Rate Blood Pressure 159/106 136/84 134/105 Blood Pressure [Left] O2 Sat by Pulse 64 L 94 96 Oximetry 01/17/20 01/17/20 01/17/20 17:41 18:21 18:41 Temperature Pulse Rate 94 H 98 H 91 H Respiratory 26 H 25 H 21 Rate Blood Pressure 153/109 170/97 176/102 Blood Pressure [Left] O2 Sat by Pulse 97 92 97 Oximetry 01/17/20 01/17/20 01/17/20 19:01 19:02 19:21 Temperature Pulse Rate Respiratory Rate Blood Pressure 178/100 193/104 193/104 Blood Pressure [Left] O2 Sat by Pulse 97 96 Oximetry 01/17/20 01/17/20 01/17/20 19:41 20:01 20:21 Temperature Pulse Rate Respiratory Rate Blood Pressure 193/104 146/83 146/83 Blood Pressure [Left] O2 Sat by Pulse 91 90 81 L Oximetry 01/17/20 01/17/20 01/17/20 20:41 20:58 21:01 Temperature 98.0 F Pulse Rate 100 H 98 H Respiratory 20 18 Rate Blood Pressure 146/83 174/81 Blood Pressure 140/83 [Left] O2 Sat by Pulse 88 97 96 Oximetry 01/17/20 01/17/20 01/17/20 21:21 21:41 22:00 Temperature Pulse Rate 96 H 108 H Respiratory 13 26 H 22 Rate Blood Pressure 190/102 190/102 Blood Pressure [Left] O2 Sat by Pulse 99 94 97 Oximetry ED Medical Decision Making - Lab Data Result diagrams: 01/18/20 07:12 01/18/20 07:12 - EKG Data -: EKG Interpreted by [facility] EKG shows normal: sinus rhythm - Radiology Data Radiology results: report reviewed - Medical Decision Making Patient is 59 years old female with history of hypertension and diabetes. Patient presented to the ER complaining of difficulty breathing and shortness of breath for the last 2 days. Patient stated that symptoms getting worse today. Patient initial oxygen saturation was 72% on room air improved to 95% on a nonrebreather. Patient denied any fever or chills. Patient also denied any chest pain. Patient stated that she work at [employer] and 2 of her coworker tested positive for COVID-19. Patient found to be hyperkalemic with a potassium of 6.5. There is no evidence of hemolysis. Patient received dextrose 50, insulin 10, albuterol and Kayexalate. Chest x-ray showed pulmonary edema. Patient has new onset congestive heart failure. Patient received Lasix 60 mg IV. Patient symptoms improved. I discussed the patient with Dr Velásquez, he agreed to admit the patient to medical service for further management. Critical Care Time: Yes Critical care time in (mins) excluding proc time.: 30 Critical care attestation.: If time is entered above; I have spent that time in minutes in the direct care of this critically ill patient, excluding procedure time. ED Disposition Clinical Impression: Acute respiratory failure with hypoxia, Acute hyperkalemia, New onset of congestive heart failure, Suspected COVID-19 virus infection Disposition: DC-09 OP ADMIT IP TO THIS HOSP Is pt being admited?: Yes Condition: Stable
[2020-01-17] MEDS ORDERED: ALBUTEROL 2.5 MG/3 ML NEBU IH ONE ×3 (15:35→21:13)
[2020-01-17] MEDS ORDERED: IPRATROPIUM 0.02% NEBU 2.5 ML IH ONE ×3 (15:36→21:13)
[2020-01-17 15:43] LABS: Basophils # (Auto) 0.1 K/mm3 (0.0-0.1); Basophils % (Auto) 1.5 % (0.0-1.8); Hematocrit 40.8 % (30.3-42.9); Hemoglobin 12.9 gm/dl (10.1-14.3); Lymphocytes # (Auto) 1.3 K/mm3 (1.2-5.4); Lymphocytes % (Auto) 12.9 % (13.4-35.0); Mean Corpuscular HGB Conc 32 % (30-34); Mean Corpuscular Volume 92 fl (79-97); Monocytes # (Auto) 0.6 K/mm3 (0.0-0.8); Monocytes % (Auto) 6.5 % (0.0-7.3); Platelet Count 311 K/mm3 (140-440); Red Blood Count 4.44 M/mm3 (3.65-5.03); Red Cell Distribution Width 17.5 % (13.2-15.2)
[2020-01-17 16:03] LABS: BUN/Creatinine Ratio 26; Blood Urea Nitrogen 23 mg/dL (7-17); Calcium 9.1 mg/dL (8.4-10.2); Hemolysis Index 3
[2020-01-17 16:07] LABS: Alanine Aminotransferase 24 units/L (7-56); Albumin 4.5 g/dL (3.9-5); Bilirubin,Direct < 0.2 mg/dL (0-0.2)
[2020-01-17 16:09] LABS: INR 0.95 (0.87-1.13)
[2020-01-17] MEDS ORDERED: DEXTROSE 50% IN WATER (25GM) 50 ML SYRINGE IV ONE (16:11)
[2020-01-17] MEDS ORDERED: INSULIN REGULAR, HUMAN 100 UNITS/1 ML IV ONE (16:11)
[2020-01-17] MEDS ORDERED: SODIUM POLYSTYRENE 15 GM/60 ML ORAL LIQD PO ONE (16:12)
[2020-01-17 16:15] LABS: Partial Thromboplastin Time 28.4 Sec. (24.2-36.6)
--- NOTE | 2020-01-17 16:31 | XRay Report ---
CHEST 1 VIEW INDICATION: Dyspnea COMPARISON: June 26, 2019 FINDINGS: SUPPORT DEVICES: None. HEART / MEDIASTINUM: No significant abnormality. LUNGS / PLEURA: Interstitial markings are prominent throughout both lungs. No pneumothorax. ADDITIONAL FINDINGS: IMPRESSION: 1. Pulmonary edema is a concern Signer Name: Suman Ibrahim MD Signed: 01/17/2020 4:26 PM Workstation Name: [id number]
[2020-01-17] MEDS ORDERED: FUROSEMIDE 40 MG/4 ML INJ IV ONE (17:09)
[2020-01-17 17:14] LABS: Bacteria,Urine 3+ /HPF (Negative); Bilirubin,Urine NEG (Negative); Blood,Urine SM (Negative); Color,Urine Amber (Yellow); Mucus,Urine FEW /HPF
[2020-01-17] MEDS ORDERED: ONDANSETRON 4 MG/2 ML INJ IV PRN (17:25)
[2020-01-17] MEDS ORDERED: ACETAMINOPHEN 325 MG TAB PO PRN (17:27)
--- NOTE | 2020-01-17 17:29 | History and Physical Report ---
History of Present Illness Chief complaint: I have been feeling sick over the past few days History of present illness: 59 YO Female with HTN, DM, Obesity Hypoventilation Syndrome, Asthma presents to ED for evaluation. Patient states that she has experienced shortness of breath, fatigue, malaise, decreased exercise tolerance, dry cough, and generalized weakness over the past 2 days with progressively worsening symptoms over the same timeframe. Patient transported to [facility] via private vehicle for further care and evaluation of the aforementioned symptoms. Patient seen and evaluated in the emergency department. Lab and imaging studies reviewed. Patient was found to have a pulse oximetry of 72% on room air which is consistent with acute hypoxemic respiratory failure. Chest x-ray reveals bilateral pneumonia. Patient also found to have accelerated hypertension. Patient admitted to medical floor and initiated on COVID-19 protocol as well as pneumonia protocol. Coronavirus PCR has been ordered in the emergency department and is pending at the time of my admission. Patient denies fever, chills, chest pain, productive cough, skin rash, hemoptysis, unilateral leg swelling, calf pain, individual/family history of DVT/PE/bleeding/blood clotting disorders. Patient acknowledges exposure to coworkers who tested positive for COVID-19. Patient admitted to medical floor due to increased risk for pulmonary decompensation. Prior admission on 06/27/2019 reviewed. All medication listed at time of admission has been reconciled. Advanced care planning conducted in ED. Past History Past Medical History: diabetes, hyperthyroidism, other (See HPI) Past Surgical History: appendectomy, , hernia repair Social history: single. denies: smoking, alcohol abuse, prescription drug abuse Family history: diabetes, hypertension Medications and Allergies Allergies Allergy/AdvReac Type Severity Reaction Status Date / Time prochlorperazine Allergy Unknown Verified 01/17/20 14:27 [From Compazine] Home Medications Medication Instructions Recorded Confirmed Last Taken Type Acetaminophen [Acetaminophen TAB] 1 tab PO Q4H PRN #15 tablet 07/03/19 Unknown Rx Albuterol Mdi (or & Nicu Only) 2 puff IH QID PRN #8.5 gram 07/03/19 Unknown Rx [ProAir HFA Inhaler] Budesonide/Formoterol Fumarate 2 puff IH BID #1 hfa.aer.ad 07/03/19 Unknown Rx [Symbicort 160-4.5 Mcg Inhaler] Gabapentin 300 mg PO Q6HR #60 capsule 07/03/19 Unknown Rx Lisinopril/Hydrochlorothiazide 1 tab PO QDAY #30 tab 07/03/19 Unknown Rx [Zestoretic 20-25 mg] Temazepam [Restoril] 15 mg PO QHS PRN #15 capsule 07/03/19 Unknown Rx amLODIPine 10 mg PO QDAY #30 tablet 07/03/19 Unknown Rx diphenhydrAMINE [Benadryl CAP] 25 mg PO Q8H PRN capsule 07/03/19 Unknown Rx metFORMIN 1,000 mg PO BID #60 07/03/19 Unknown Rx predniSONE [Deltasone] 1 dose PO QDAY #23 tablet 07/03/19 Unknown Rx Active Meds: Active Medications Acetaminophen (Tylenol) 650 mg PO Q4H PRN PRN Reason: Pain MILD(1-3)/Fever >100.5/LAUREANO Acetaminophen (Tylenol) mg PO Q4H PRN PRN Reason: Pain MILD(1-3)/Fever >100.5/LAUREANO Amlodipine Besylate (Amlodipine) 10 mg PO QDAY RICHARD Diphenhydramine HCl (Benadryl) 25 mg PO Q8H PRN PRN Reason: Itching Gabapentin (Gabapentin) 300 mg PO Q6HR RICHARD Miscellaneous Medication (Lisinopril/Hydrochlorothiazide [Zestoretic 20-25 Mg]) 1 tab PO QDAY RICHARD Ondansetron HCl (Zofran) 4 mg IV Q8H PRN PRN Reason: Nausea And Vomiting Prednisone (Deltasone) mg PO QDAY RICHARD Sodium Chloride (Sodium Chloride Flush Syringe 10 Ml) 10 ml IV BID RICHARD Sodium Chloride (Sodium Chloride Flush Syringe 10 Ml) 10 ml IV PRN PRN PRN Reason: LINE FLUSH Temazepam (Restoril) 15 mg PO QHS PRN PRN Reason: Sleep Review of Systems Constitutional: fatigue, weakness, malaise, no weight loss, no weight gain, no fever, no chills Ears, nose, mouth and throat: no ear pain, no ear discharge, no nasal congestion, no nasal discharge Breasts: no change in shape Cardiovascular: shortness of breath, no chest pain, no orthopnea, no palpitations, no edema, no syncope Respiratory: cough, no cough with sputum, no excessive sputum, no hemoptysis Gastrointestinal: no abdominal pain, no nausea, no vomiting, no diarrhea Genitourinary Female: no pelvic pain, no flank pain, no menorrhagia, no dysuria, no urinary frequency, no urgency, no stress incontinence Menstruation: no currently menstrual, no premenarcheal, no post hysterectomy, no ammenorrhea, no ammenorrhea on BC, no period normal Rectal: no pain, no incontinence, no bleeding Musculoskeletal: no neck stiffness, no neck pain, no shooting arm pain, no arm numbness/tingling, no low back pain Integumentary: no rash, no pruritis, no redness, no sores, no wounds Neurological: no transient paralysis, no paralysis, no weakness, no parathesias, no numbness, no tingling Psychiatric: no anxiety, no memory loss, no change in sleep habits, no sleep disturbances, no insomnia, no hypersomnia, no change in appetite Endocrine: no cold intolerance, no heat intolerance, no polyphagia, no excessive thirst, no polydipsia Hematologic/Lymphatic: no easy bruising, no easy bleeding, no lymphadenopathy, no lymphedema Allergic/Immunologic: no urticaria, no wheezing, no persistent infections, no anaphylaxis Exam - Constitutional Vitals: Temp Pulse Resp BP Pulse Ox 97.3 F L 95 H 26 H 136/84 94 01/17/20 14:26 01/17/20 16:31 01/17/20 16:31 01/17/20 16:31 01/17/20 16:31 General appearance: Present: mild distress, obese - EENT Eyes: Present: PERRL ENT: hearing intact, clear oral mucosa - Neck Neck: Present: supple, normal ROM - Respiratory Respiratory effort: labored, accessory muscle use, stridor Respiratory: bilateral: diminished, rhonchi - Cardiovascular Heart Sounds: Present: S1 & S2. Absent: rub, click - Extremities Extremities: pulses symmetrical, No edema Peripheral Pulses: within normal limits - Abdominal General gastrointestinal: Present: soft, non-tender, non-distended, normal bowel sounds Female genitourinary: Present: normal - Integumentary Integumentary: Present: clear, warm, dry - Musculoskeletal Musculoskeletal: gait normal, strength equal bilaterally - Psychiatric Psychiatric: appropriate mood/affect, intact judgment & insight - Neurologic Neurologic: CNII-XII intact, moves all extremities HEART Score - HEART Score Troponin: Troponin T < 0.010 ng/mL (0.00-0.029) 01/17/20 15:27 Results - Labs CBC & Chem 7: 01/17/20 15:27 01/17/20 17:49 Labs: Abnormal lab results 01/17/20 01/17/20 01/17/20 Range/Units 15:27 15:27 15:27 RDW 17.5 H (13.2-15.2) % Lymph % (Auto) 12.9 L (13.4-35.0) % Seg Neutrophils % 79.1 H (40.0-70.0) % Seg Neutrophils # 7.9 H (1.8-7.7) K/mm3 Sodium 129 L (137-145) mmol/L Potassium 6.5 H* (3.6-5.0) mmol/L Chloride 92.2 L (98-107) mmol/L BUN 23 H (7-17) mg/dL Glucose 205 H (65-100) mg/dL Alkaline Phosphatase 150 H (35-129) units/L NT-Pro-B Natriuret Pep (0-900) pg/mL Urine WBC (Auto) (0.0-6.0) /HPF 01/17/20 01/17/20 Range/Units 15:27 Unknown RDW (13.2-15.2) % Lymph % (Auto) (13.4-35.0) % Seg Neutrophils % (40.0-70.0) % Seg Neutrophils # (1.8-7.7) K/mm3 Sodium (137-145) mmol/L Potassium (3.6-5.0) mmol/L Chloride (98-107) mmol/L BUN (7-17) mg/dL Glucose (65-100) mg/dL Alkaline Phosphatase (35-129) units/L NT-Pro-B Natriuret Pep 1403 H (0-900) pg/mL Urine WBC (Auto) 36.0 H (0.0-6.0) /HPF Assessment and Plan - Patient Problems (1) Acute respiratory failure with hypoxia Current Visit: Yes Status: Acute Plan to address problem: Supplemental oxygen, nebulizer therapy, pulse oximetry, chest x-ray, noninvasive positive pressure ventilation as clinically indicated, pulmonary toilet. Out of bed to chair 3 times a day, ambulate as needed (2) Suspected COVID-19 virus infection Current Visit: Yes Status: Acute Plan to address problem: COVID-19 protocol: COVID-19 PCR ordered in ED, supportive care, (3) Pneumonia Current Visit: Yes Status: Acute Qualifiers: Laterality: bilateral Plan to address problem: Pneumonia protocol: Chest x-ray, pulse oximetry, nebulizer therapy, noninvasive positive pressure ventilation as clinically indicated, IV antibiotic therapy, supportive care. (4) Accelerated hypertension Current Visit: Yes Status: Acute Plan to address problem: Monitor blood pressure every shift, continue medical management. (5) Obesity hypoventilation syndrome Current Visit: Yes Status: Acute Plan to address problem: Supplemental oxygen, nebulizer therapy, chest x-ray, pulse oximetry, noninvasive positive pressure ventilation as clinically indicated, outpatient pulmonology follow-up for sleep study, bariatric surgery consult as outpatient. Balanced diet, increase physical activity (6) DVT prophylaxis Current Visit: Yes Status: Acute Plan to address problem: SCD to bilateral lower extremities while in bed, patient is ambulatory (7) Advance care planning Current Visit: Yes Status: Acute Plan to address problem: Disease education conducted, patient is full code, prognosis discussed, patient acknowledges understanding and agreement with care plan, +30 minutes.
[2020-01-17] MEDS ORDERED: AZITHROMYCIN 500 MG in SODIUM CHLORIDE 0.9% 250ML 250 ML IV SCH (18:00)
[2020-01-17 20:15] LABS: BUN/Creatinine Ratio 24; Blood Urea Nitrogen 22 mg/dL (7-17); Calcium 9.1 mg/dL (8.4-10.2); Hemolysis Index 4
[2020-01-17] MEDS: TEMAZEPAM 15 MG CAP PO PRN (23:12)
[2020-01-18] MEDS: cefTRIAXone/NS 2 GM/100 ML 2 GM/100 ML BAG IV SCH ×2 (00:01→19:09)
[2020-01-18] MEDS: GABAPENTIN 300 MG CAP PO SCH ×6 (00:02→23:42)
[2020-01-18 08:53] LABS: Basophils % (Auto) 0.5 % (0.0-1.8); Eosinophils # (Auto) 0.1 K/mm3 (0.0-0.4); Eosinophils % (Auto) 0.8 % (0.0-4.3); Hematocrit 36.6 % (30.3-42.9); Hemoglobin 11.8 gm/dl (10.1-14.3); Lymphocytes # (Auto) 1.4 K/mm3 (1.2-5.4); Lymphocytes % (Auto) 15.3 % (13.4-35.0); Mean Corpuscular HGB Conc 32 % (30-34); Mean Corpuscular Volume 90 fl (79-97); Monocytes # (Auto) 0.7 K/mm3 (0.0-0.8); Monocytes % (Auto) 7.2 % (0.0-7.3); Platelet Count 307 K/mm3 (140-440); Red Blood Count 4.06 M/mm3 (3.65-5.03); Red Cell Distribution Width 17.1 % (13.2-15.2)
[2020-01-18 09:11] LABS: Alanine Aminotransferase 20 units/L (7-56); Albumin 4.2 g/dL (3.9-5); BUN/Creatinine Ratio 20; Blood Urea Nitrogen 16 mg/dL (7-17); Calcium 9.2 mg/dL (8.4-10.2); Hemolysis Index 1
[2020-01-18] MEDS ORDERED: LISINOPRIL PO SCH (10:00)
[2020-01-18] MEDS ORDERED: HYDROCHLOROTHIAZIDE PO SCH (10:00)
[2020-01-18] MEDS ORDERED: predniSONE 20 MG TAB PO SCH (10:00)
[2020-01-18] MEDS: amLODIPine 10 MG TAB PO SCH (11:40)
[2020-01-18] MEDS: LISINOPRIL 20 MG TAB PO SCH (11:40)
[2020-01-18] MEDS: hydroCHLOROthiazide 25 MG TAB PO SCH (11:40)
[2020-01-18] MEDS: AZITHROMYCIN 250 MG TAB PO SCH (14:08)
[2020-01-18] MEDS: ACETAMINOPHEN 325 MG TAB PO PRN (20:29)
--- NOTE | 2020-01-18 20:51 | Progress Note ---
Assessment and Plan Assessment and plan: -- Acute respiratory failure with hypoxia Current Visit: Yes Status: Acute Supplemental oxygen, nebulizer therapy, titrate O2 sats to more than 90% Supportive care --PUI/Suspected COVID-19 virus infection Current Visit: Yes Status: Acute COVID-19 protocol: COVID-19 PCR Inflammatory markers, isolation precautions ID consult -- Pneumonia Current Visit: Yes Status: Acute Empiric antibiotics, follow cultures, supportive care --Accelerated hypertension Current Visit: Yes Status: Acute , continue current antihypertensives PRN hydralazine --Morbid obesity ; BMI 43.3/DAVID Current Visit: Yes Status: Acute Supplemental oxygen, nebulizer therapy, Patient needs outpatient sleep study CPAP/BiPAP at night --DVT prophylaxis Current Visit: Yes Status: Acute : SCD to bilateral lower extremities while in bed, patient is ambulatory -- Advance care planning/full code Current Visit: Yes Status: Acute Plan of care reviewed with the patient and her nurse Follow coronavirus tests, follow clinically History Interval history: Patient seen and examined in her room in isolation Patient's chart and medications reviewed P UI to rule out COVID-19 Vital signs reviewed Hospitalist Physical - Constitutional Vitals: Temp Pulse Resp BP Pulse Ox 98.9 F 96 H 24 154/83 100 01/18/20 17:01 01/18/20 17:01 01/18/20 17:01 01/18/20 17:01 01/18/20 17:01 General appearance: Present: mild distress, obese (Morbidly obese) - EENT Eyes: Present: PERRL, EOM intact - Neck Neck: Present: supple, normal ROM - Respiratory Respiratory effort: normal Respiratory: bilateral: diminished, negative: rales, rhonchi, wheezing - Cardiovascular Rhythm: regular Heart Sounds: Present: S1 & S2 - Extremities Extremities: no ischemia, No edema - Abdominal General gastrointestinal: soft, non-tender, non-distended, normal bowel sounds - Integumentary Integumentary: Present: clear, warm - Psychiatric Psychiatric: appropriate mood/affect, cooperative - Neurologic Neurologic: moves all extremities HEART Score - HEART Score Troponin: Troponin T < 0.010 ng/mL (0.00-0.029) 01/17/20 19:30 Results - Labs CBC & Chem 7: 01/18/20 07:12 01/18/20 07:12 Labs: Laboratory Last Values WBC 9.4 K/mm3 (4.5-11.0) 01/18/20 07:12 RBC 4.06 M/mm3 (3.65-5.03) 01/18/20 07:12 Hgb 11.8 gm/dl (10.1-14.3) 01/18/20 07:12 Hct 36.6 % (30.3-42.9) 01/18/20 07:12 MCV 90 fl (79-97) 01/18/20 07:12 MCH 29 pg (28-32) 01/18/20 07:12 MCHC 32 % (30-34) 01/18/20 07:12 RDW 17.1 % (13.2-15.2) H 01/18/20 07:12 Plt Count 307 K/mm3 (140-440) 01/18/20 07:12 Lymph % (Auto) 15.3 % (13.4-35.0) 01/18/20 07:12 [place] % (Auto) 7.2 % (0.0-7.3) 01/18/20 07:12 Eos % (Auto) 0.8 % (0.0-4.3) 01/18/20 07:12 Baso % (Auto) 0.5 % (0.0-1.8) 01/18/20 07:12 Lymph # 1.4 K/mm3 (1.2-5.4) 01/18/20 07:12 [place] # 0.7 K/mm3 (0.0-0.8) 01/18/20 07:12 Eos # 0.1 K/mm3 (0.0-0.4) 01/18/20 07:12 Baso # 0.0 K/mm3 (0.0-0.1) 01/18/20 07:12 Seg Neutrophils % 76.2 % (40.0-70.0) H 01/18/20 07:12 Seg Neutrophils # 7.2 K/mm3 (1.8-7.7) 01/18/20 07:12 PT 12.5 Sec. (12.2-14.9) 01/17/20 15:27 INR 0.95 (0.87-1.13) 01/17/20 15:27 APTT 28.4 Sec. (24.2-36.6) 01/17/20 15:27 D-Dimer 513.32 ng/mlDDU (0-234) H 01/17/20 17:49 Sodium 138 mmol/L (137-145) 01/18/20 07:12 Potassium 4.9 mmol/L (3.6-5.0) 01/18/20 07:12 Chloride 97.0 mmol/L (98-107) L 01/18/20 07:12 Carbon Dioxide 29 mmol/L (22-30) 01/18/20 07:12 Anion Gap 17 mmol/L 01/18/20 07:12 BUN 16 mg/dL (7-17) 01/18/20 07:12 Creatinine 0.8 mg/dL (0.7-1.2) 01/18/20 07:12 Estimated GFR > 60 ml/min 01/18/20 07:12 BUN/Creatinine Ratio 20 % 01/18/20 07:12 Glucose 92 mg/dL (65-100) 01/18/20 07:12 Lactic Acid 1.60 mmol/L (0.7-2.0) 01/17/20 15:27 Calcium 9.2 mg/dL (8.4-10.2) 01/18/20 07:12 Ferritin 120.7 ng/mL (13.0-400.0) 01/17/20 17:49 Total Bilirubin 0.30 mg/dL (0.1-1.2) 01/18/20 07:12 Direct Bilirubin < 0.2 mg/dL (0-0.2) 01/17/20 15:27 Indirect Bilirubin 0.0 mg/dL 01/17/20 15:27 AST 15 units/L (5-40) 01/18/20 07:12 ALT 20 units/L (7-56) 01/18/20 07:12 Alkaline Phosphatase 131 units/L (35-129) H 01/18/20 07:12 Lactate Dehydrogenase 393 units/L (91-180) H 01/17/20 17:49 Troponin T < 0.010 ng/mL (0.00-0.029) 01/17/20 19:30 C-Reactive Protein 3.00 mg/dL (0.00-1.30) H 01/17/20 17:49 NT-Pro-B Natriuret Pep 1403 pg/mL (0-900) H 01/17/20 15:27 Total Protein 7.0 g/dL (6.3-8.2) 01/18/20 07:12 Albumin 4.2 g/dL (3.9-5) 01/18/20 07:12 Albumin/Globulin Ratio 1.5 % 01/18/20 07:12 Procalcitonin 0.06 ng/mL (<0.15) 01/17/20 17:49 Urine Color Crys (Yellow) 01/17/20 Unknown Urine Turbidity Cloudy (Clear) 01/17/20 Unknown Urine pH 6.0 (5.0-7.0) 01/17/20 Unknown Ur Specific [place] 1.015 (1.003-1.030) 01/17/20 Unknown Urine Protein 100 mg/dl mg/dL (Negative) 01/17/20 Unknown Urine Glucose (UA) Neg mg/dL (Negative) 01/17/20 Unknown Urine Ketones Neg mg/dL (Negative) 01/17/20 Unknown Urine Blood Sm (Negative) 01/17/20 Unknown Urine Nitrite Neg (Negative) 01/17/20 Unknown Urine Bilirubin Neg (Negative) 01/17/20 Unknown Urine Urobilinogen 4.0 mg/dL (<2.0) 01/17/20 Unknown Ur Leukocyte Esterase Tr (Negative) 01/17/20 Unknown Urine WBC (Auto) 36.0 /HPF (0.0-6.0) H 01/17/20 Unknown Urine RBC (Auto) 22.0 /HPF (0.0-6.0) 01/17/20 Unknown U Epithel Cells (Auto) 1.0 /HPF (0-13.0) 01/17/20 Unknown Urine Bacteria (Auto) 3+ /HPF (Negative) 01/17/20 Unknown Urine Mucus Few /HPF 01/17/20 Unknown Microbiology: Microbiology 01/17/20 15:27 Peripheral/Venous Blood Culture - Preliminary NO GROWTH AFTER 24 HOURS 01/17/20 15:32 Peripheral/Venous Blood Culture - Preliminary NO GROWTH AFTER 24 HOURS Segura/IV: Voiding Method Toilet IV Catheter Type [Left Hand] INT / Saline Lock Active Medications - Current Medications Current Medications: Generic Name Dose Route Start Last Admin Trade Name Freq PRN Reason Stop Dose Admin Acetaminophen 650 mg 01/17/20 17:25 01/18/20 20:29 Tylenol PO 650 mg Q4H PRN Administration Pain MILD(1-3)/Fever >100.5/LAUREANO Amlodipine Besylate 10 mg 01/18/20 10:00 01/18/20 11:40 Amlodipine PO 10 mg QDAY RICHARD Administration Azithromycin 500 mg 01/18/20 14:00 01/18/20 14:08 Zithromax PO 500 mg QDAY RICHARD Administration Diphenhydramine HCl 25 mg 01/17/20 17:27 Benadryl PO Q8H PRN Itching Gabapentin 300 mg 01/17/20 18:00 01/18/20 20:24 Gabapentin PO Not Given Q6HR RICHARD Hydrochlorothiazide 25 mg 01/18/20 10:00 01/18/20 11:40 Hctz PO 25 mg QDAY RICHARD Administration Ceftriaxone Sodium 2 gm in 100 mls @ 200 mls/hr 01/17/20 18:30 01/18/20 19:09 Rocephin/Ns 2 Gm/100 Ml IV 200 mls/hr Q24H RICHARD Administration Protocol Lisinopril 20 mg 01/18/20 10:00 01/18/20 11:40 Zestril PO 20 mg QDAY RICHARD Administration Ondansetron HCl 4 mg 01/17/20 17:25 Zofran IV Q8H PRN Nausea And Vomiting Sodium Chloride 10 ml 01/17/20 22:00 01/18/20 11:41 Sodium Chloride Flush Syringe 10 Ml IV 10 ml BID RICHARD Administration Sodium Chloride 10 ml 01/17/20 17:25 Sodium Chloride Flush Syringe 10 Ml IV PRN PRN LINE FLUSH Temazepam 15 mg 01/17/20 17:27 01/17/20 23:12 Restoril PO 15 mg QHS PRN Administration Sleep
[2020-01-18] MEDS ORDERED: ALBUTEROL 8.5 GM MDI INHALATION IH PRN (22:11)
[2020-01-18] MEDS: TEMAZEPAM 15 MG CAP PO PRN (23:42)
[2020-01-19] MEDS: GABAPENTIN 300 MG CAP PO SCH ×4 (05:55→23:00)
--- NOTE | 2020-01-19 10:35 | Progress Note ---
Assessment and Plan Assessment and plan: -- negative COVID-19 virus infection --Right knee pain; X-ray right knee; mild tricompartmental degenerative changes No acute abnormality, pain medications, supportive care PT if needed -- Acute respiratory failure with hypoxia Current Visit: Yes Status: Acute Patient titrate O2 sats to more than 90% Home oxygen evaluation at discharge --Sepsis secondary to UTI[E. coli] continue Rocephin --Pneumonia Current Visit: Yes Status: Acute Empiric antibiotics, follow cultures --Accelerated hypertension Current Visit: Yes Status: Acute Continue current antihypertensives PRN medications -- DVT prophylaxis Current Visit: Yes Status: Acute SCD . Lovenox -- Advance care planning/full code Current Visit: Yes Status: Acute Plan of care reviewed with the patient and her nurse . I discussed with patient's daughter Ms. Novak [phone] Answered all her questions Disposition; follow clinically, discharge when stable - History Interval history: Patient seen and examined, medical records reviewed Patient is COVID negative, complains of right knee pain Alert awake oriented Vital signs reviewed Hospitalist Physical - Constitutional Vitals: Temp Pulse Resp BP Pulse Ox 98.6 F 86 20 155/98 97 01/19/20 06:04 01/19/20 06:04 01/19/20 06:04 01/19/20 06:04 01/19/20 08:40 General appearance: Present: no acute distress, well-nourished, obese (Morbidly) - EENT Eyes: Present: PERRL, EOM intact - Neck Neck: Present: supple, normal ROM - Respiratory Respiratory effort: normal Respiratory: bilateral: diminished, negative: rales, rhonchi, wheezing - Cardiovascular Rhythm: regular Heart Sounds: Present: S1 & S2 - Extremities Extremities: abnormal (Knee swelling and pain) - Abdominal General gastrointestinal: soft, non-tender, non-distended, normal bowel sounds - Integumentary Integumentary: Present: clear, warm - Psychiatric Psychiatric: appropriate mood/affect, cooperative - Neurologic Neurologic: moves all extremities HEART Score - HEART Score Troponin: Troponin T < 0.010 ng/mL (0.00-0.029) 01/17/20 19:30 Results - Labs CBC & Chem 7: 01/18/20 07:12 01/18/20 07:12 Labs: Laboratory Last Values WBC 9.4 K/mm3 (4.5-11.0) 01/18/20 07:12 RBC 4.06 M/mm3 (3.65-5.03) 01/18/20 07:12 Hgb 11.8 gm/dl (10.1-14.3) 01/18/20 07:12 Hct 36.6 % (30.3-42.9) 01/18/20 07:12 MCV 90 fl (79-97) 01/18/20 07:12 MCH 29 pg (28-32) 01/18/20 07:12 MCHC 32 % (30-34) 01/18/20 07:12 RDW 17.1 % (13.2-15.2) H 01/18/20 07:12 Plt Count 307 K/mm3 (140-440) 01/18/20 07:12 Lymph % (Auto) 15.3 % (13.4-35.0) 01/18/20 07:12 [place] % (Auto) 7.2 % (0.0-7.3) 01/18/20 07:12 Eos % (Auto) 0.8 % (0.0-4.3) 01/18/20 07:12 Baso % (Auto) 0.5 % (0.0-1.8) 01/18/20 07:12 Lymph # 1.4 K/mm3 (1.2-5.4) 01/18/20 07:12 [place] # 0.7 K/mm3 (0.0-0.8) 01/18/20 07:12 Eos # 0.1 K/mm3 (0.0-0.4) 01/18/20 07:12 Baso # 0.0 K/mm3 (0.0-0.1) 01/18/20 07:12 Seg Neutrophils % 76.2 % (40.0-70.0) H 01/18/20 07:12 Seg Neutrophils # 7.2 K/mm3 (1.8-7.7) 01/18/20 07:12 PT 12.5 Sec. (12.2-14.9) 01/17/20 15:27 INR 0.95 (0.87-1.13) 01/17/20 15:27 APTT 28.4 Sec. (24.2-36.6) 01/17/20 15:27 D-Dimer 513.32 ng/mlDDU (0-234) H 01/17/20 17:49 Sodium 138 mmol/L (137-145) 01/18/20 07:12 Potassium 4.9 mmol/L (3.6-5.0) 01/18/20 07:12 Chloride 97.0 mmol/L (98-107) L 01/18/20 07:12 Carbon Dioxide 29 mmol/L (22-30) 01/18/20 07:12 Anion Gap 17 mmol/L 01/18/20 07:12 BUN 16 mg/dL (7-17) 01/18/20 07:12 Creatinine 0.8 mg/dL (0.7-1.2) 01/18/20 07:12 Estimated GFR > 60 ml/min 01/18/20 07:12 BUN/Creatinine Ratio 20 % 01/18/20 07:12 Glucose 92 mg/dL (65-100) 01/18/20 07:12 Lactic Acid 1.60 mmol/L (0.7-2.0) 01/17/20 15:27 Calcium 9.2 mg/dL (8.4-10.2) 01/18/20 07:12 Ferritin 120.7 ng/mL (13.0-400.0) 01/17/20 17:49 Total Bilirubin 0.30 mg/dL (0.1-1.2) 01/18/20 07:12 Direct Bilirubin < 0.2 mg/dL (0-0.2) 01/17/20 15:27 Indirect Bilirubin 0.0 mg/dL 01/17/20 15:27 AST 15 units/L (5-40) 01/18/20 07:12 ALT 20 units/L (7-56) 01/18/20 07:12 Alkaline Phosphatase 131 units/L (35-129) H 01/18/20 07:12 Lactate Dehydrogenase 393 units/L (91-180) H 01/17/20 17:49 Troponin T < 0.010 ng/mL (0.00-0.029) 01/17/20 19:30 C-Reactive Protein 3.00 mg/dL (0.00-1.30) H 01/17/20 17:49 NT-Pro-B Natriuret Pep 1403 pg/mL (0-900) H 01/17/20 15:27 Total Protein 7.0 g/dL (6.3-8.2) 01/18/20 07:12 Albumin 4.2 g/dL (3.9-5) 01/18/20 07:12 Albumin/Globulin Ratio 1.5 % 01/18/20 07:12 Procalcitonin 0.06 ng/mL (<0.15) 01/17/20 17:49 Urine Color Crys (Yellow) 01/17/20 Unknown Urine Turbidity Cloudy (Clear) 01/17/20 Unknown Urine pH 6.0 (5.0-7.0) 01/17/20 Unknown Ur Specific [place] 1.015 (1.003-1.030) 01/17/20 Unknown Urine Protein 100 mg/dl mg/dL (Negative) 01/17/20 Unknown Urine Glucose (UA) Neg mg/dL (Negative) 01/17/20 Unknown Urine Ketones Neg mg/dL (Negative) 01/17/20 Unknown Urine Blood Sm (Negative) 01/17/20 Unknown Urine Nitrite Neg (Negative) 01/17/20 Unknown Urine Bilirubin Neg (Negative) 01/17/20 Unknown Urine Urobilinogen 4.0 mg/dL (<2.0) 01/17/20 Unknown Ur Leukocyte Esterase Tr (Negative) 01/17/20 Unknown Urine WBC (Auto) 36.0 /HPF (0.0-6.0) H 01/17/20 Unknown Urine RBC (Auto) 22.0 /HPF (0.0-6.0) 01/17/20 Unknown U Epithel Cells (Auto) 1.0 /HPF (0-13.0) 01/17/20 Unknown Urine Bacteria (Auto) 3+ /HPF (Negative) 01/17/20 Unknown Urine Mucus Few /HPF 01/17/20 Unknown Coronavirus (PCR) Negative (Negative) 01/17/20 Unknown Microbiology: Microbiology 01/17/20 Unknown Urine,Clean Catch Urine Culture - Final Escherichia Coli 01/17/20 15:27 Peripheral/Venous Blood Culture - Preliminary NO GROWTH AFTER 24 HOURS 01/17/20 15:32 Peripheral/Venous Blood Culture - Preliminary NO GROWTH AFTER 24 HOURS Segura/IV: Voiding Method Bedside Commode IV Catheter Type [Right Hand] INT / Saline Lock IV Catheter Type [Left Hand] INT / Saline Lock Active Medications - Current Medications Current Medications: Generic Name Dose Route Start Last Admin Trade Name Freq PRN Reason Stop Dose Admin Acetaminophen 650 mg 01/17/20 17:25 01/18/20 20:29 Tylenol PO 650 mg Q4H PRN Administration Pain MILD(1-3)/Fever >100.5/LAUREANO Albuterol 2 puff 01/18/20 22:11 Proair IH Q4HRT PRN Shortness Of Breath Amlodipine Besylate 10 mg 01/18/20 10:00 01/18/20 11:40 Amlodipine PO 10 mg QDAY RICHARD Administration Azithromycin 500 mg 01/18/20 14:00 01/18/20 14:08 Zithromax PO 500 mg QDAY RICHARD Administration Diphenhydramine HCl 25 mg 01/17/20 17:27 Benadryl PO Q8H PRN Itching Gabapentin 300 mg 01/17/20 18:00 01/19/20 05:55 Gabapentin PO 300 mg Q6HR RICHARD Administration Hydrochlorothiazide 25 mg 01/18/20 10:00 01/18/20 11:40 Hctz PO 25 mg QDAY RICHARD Administration Ceftriaxone Sodium 2 gm in 100 mls @ 200 mls/hr 01/17/20 18:30 01/18/20 19:09 Rocephin/Ns 2 Gm/100 Ml IV 200 mls/hr Q24H RICHARD Administration Protocol Lisinopril 20 mg 01/18/20 10:00 01/18/20 11:40 Zestril PO 20 mg QDAY RICHARD Administration Ondansetron HCl 4 mg 01/17/20 17:25 Zofran IV Q8H PRN Nausea And Vomiting Sodium Chloride 10 ml 01/17/20 22:00 01/18/20 23:43 Sodium Chloride Flush Syringe 10 Ml IV 10 ml BID RICHARD Administration Sodium Chloride 10 ml 01/17/20 17:25 Sodium Chloride Flush Syringe 10 Ml IV PRN PRN LINE FLUSH Temazepam 15 mg 01/17/20 17:27 01/18/20 23:42 Restoril PO 15 mg QHS PRN Administration Sleep
[2020-01-19] MEDS: amLODIPine 10 MG TAB PO SCH (11:23)
[2020-01-19] MEDS: hydroCHLOROthiazide 25 MG TAB PO SCH (11:23)
[2020-01-19] MEDS: AZITHROMYCIN 250 MG TAB PO SCH (11:23)
[2020-01-19] MEDS: LISINOPRIL 20 MG TAB PO SCH (11:23)
--- NOTE | 2020-01-19 16:18 | XRay Report ---
RIGHT KNEE 3 VIEWS INDICATION / CLINICAL INFORMATION: post fall. COMPARISON: None available. FINDINGS: Mild tricompartmental degenerative change. No other significant skeletal abnormality Signer Name: Primitivo Tsai MD FACR Signed: 01/19/2020 4:14 PM Workstation Name: [id number]
[2020-01-19] MEDS: cefTRIAXone/NS 2 GM/100 ML 2 GM/100 ML BAG IV SCH (19:42)
[2020-01-19] MEDS: TEMAZEPAM 15 MG CAP PO PRN (23:00)
[2020-01-20] MEDS: GABAPENTIN 300 MG CAP PO SCH ×5 (05:44→23:35)
[2020-01-20] MEDS: hydroCHLOROthiazide 25 MG TAB PO SCH (10:37)
[2020-01-20] MEDS: LISINOPRIL 20 MG TAB PO SCH (10:37)
[2020-01-20] MEDS: AZITHROMYCIN 250 MG TAB PO SCH (10:38)
[2020-01-20] MEDS: amLODIPine 10 MG TAB PO SCH (10:38)
[2020-01-20] MEDS: ACETAMINOPHEN 325 MG TAB PO PRN (14:13)
[2020-01-20] MEDS: cefTRIAXone/NS 2 GM/100 ML 2 GM/100 ML BAG IV SCH (18:15)
--- NOTE | 2020-01-20 18:53 | Progress Note ---
Assessment and Plan Assessment and Plan -- negative COVID-19 virus infection -- Acute respiratory failure with hypoxia Current Visit: Yes Status: Acute Patient titrate O2 sats to more than 90% Home oxygen evaluation at discharge --Right knee pain; X-ray right knee; mild tricompartmental degenerative changes No acute abnormality, pain medications, supportive care PT if needed --Sepsis secondary to UTI[E. coli] continue Rocephin --Pneumonia Current Visit: Yes Status: Acute Empiric antibiotics, follow cultures --Accelerated hypertension Current Visit: Yes Status: Acute Continue current antihypertensives PRN Hydralazine -- DVT prophylaxis Current Visit: Yes Status: Acute SCD . Lovenox -- Advance care planning/full code Current Visit: Yes Status: Acute Plan of care reviewed with the patient and her nurse . Subjective Date of service: 01/20/20 Principal diagnosis: Sepsis with UTI Interval history: 59 YO Female with HTN, DM, Obesity Hypoventilation Syndrome, Asthma presents to ED for evaluation. Patient states that she has experienced shortness of breath, fatigue, malaise, decreased exercise tolerance, dry cough, and generalized weakness over the past 2 days with progressively worsening symptoms over the same timeframe. Patient transported to [facility] via private vehicle for further care and evaluation of the aforementioned symptoms. Patient seen and evaluated in the emergency department. Lab and imaging studies reviewed. Patient was found to have a pulse oximetry of 72% on room air which is consistent with acute hypoxemic respiratory failure. Chest x-ray reveals bilateral pneumonia. Patient also found to have accelerated hypertension. Patient admitted to medical floor and initiated on COVID-19 protocol as well as pneumonia protocol. Coronavirus PCR has been ordered in the emergency department and is pending at the time of my admission. Patient denies fever, chills, chest pain, productive cough, skin rash, hemoptysis, unilateral leg swelling, calf pain, individual/family history of DVT/PE/bleeding/blood clotting disorders. Patient acknowledges exposure to coworkers who tested positive for COVID-19. Patient admitted to medical floor due to increased risk for pulmonary decompensation. Prior admission on 06/27/2019 reviewed. All medication listed at time of admission has been reconciled. Advanced care planning conducted in ED. Objective - Constitutional Vitals: Vital Signs - 12hr 01/20/20 01/20/20 01/20/20 08:58 10:00 11:25 Temperature 98.0 F Pulse Rate 92 H 85 Respiratory 20 19 Rate Blood Pressure 145/80 O2 Sat by Pulse 94 100 Oximetry 01/20/20 01/20/20 16:35 18:00 Temperature 97.4 F L Pulse Rate 85 85 Respiratory 19 Rate Blood Pressure 149/88 O2 Sat by Pulse 96 Oximetry General appearance: Present: no acute distress, well-nourished - EENT Eyes: PERRL, EOM intact ENT: hearing intact, clear oral mucosa Ears: bilateral: normal - Neck Neck: supple, normal ROM - Respiratory Respiratory effort: normal Respiratory: bilateral: CTA, rhonchi - Breasts Breasts: normal - Cardiovascular Rhythm: regular Heart Sounds: Present: S1 & S2. Absent: gallop, rub Extremities: pulses intact, No edema, normal color, Full ROM - Gastrointestinal General gastrointestinal: Present: soft, non-tender, non-distended, normal bowel sounds - Genitourinary Female genitourinary: normal - Integumentary Integumentary: clear, warm, dry - Musculoskeletal Musculoskeletal: 1, strength equal bilaterally - Neurologic Neurologic: moves all extremities - Psychiatric Psychiatric: memory intact, appropriate mood/affect, intact judgment & insight - Labs CBC & Chem 7: 01/18/20 07:12 01/18/20 07:12 HEART Score - HEART Score Troponin: Troponin T < 0.010 ng/mL (0.00-0.029) 01/17/20 19:30
[2020-01-20] MEDS: diphenhydrAMINE 25 MG CAP PO PRN (23:35)
[2020-01-20] MEDS: TEMAZEPAM 15 MG CAP PO PRN (23:35)
[2020-01-21] MEDS: GABAPENTIN 300 MG CAP PO SCH ×4 (05:57→23:20)
[2020-01-21 08:03] LABS: Basophils # (Auto) 0.1 K/mm3 (0.0-0.1); Basophils % (Auto) 0.8 % (0.0-1.8); Eosinophils # (Auto) 0.6 K/mm3 (0.0-0.4); Eosinophils % (Auto) 7.9 % (0.0-4.3); Hematocrit 37.2 % (30.3-42.9); Hemoglobin 12.2 gm/dl (10.1-14.3); Lymphocytes # (Auto) 1.3 K/mm3 (1.2-5.4); Lymphocytes % (Auto) 16.2 % (13.4-35.0); Mean Corpuscular HGB Conc 33 % (30-34); Mean Corpuscular Volume 90 fl (79-97); Monocytes # (Auto) 0.7 K/mm3 (0.0-0.8); Monocytes % (Auto) 8.3 % (0.0-7.3); Platelet Count 356 K/mm3 (140-440); Red Blood Count 4.15 M/mm3 (3.65-5.03); Red Cell Distribution Width 16.6 % (13.2-15.2)
[2020-01-21 08:42] LABS: Alanine Aminotransferase 16 units/L (7-56); Albumin 3.6 g/dL (3.9-5); BUN/Creatinine Ratio 23; Blood Urea Nitrogen 23 mg/dL (7-17); Calcium 9.1 mg/dL (8.4-10.2); Hemolysis Index 18
[2020-01-21] MEDS: hydroCHLOROthiazide 25 MG TAB PO SCH (11:44)
[2020-01-21] MEDS: LISINOPRIL 20 MG TAB PO SCH (11:45)
[2020-01-21] MEDS: amLODIPine 10 MG TAB PO SCH (11:45)
[2020-01-21] MEDS: AZITHROMYCIN 250 MG TAB PO SCH (11:45)
[2020-01-21] MEDS: cefTRIAXone/NS 2 GM/100 ML 2 GM/100 ML BAG IV SCH (17:42)
--- NOTE | 2020-01-21 20:41 | Progress Note ---
Assessment and Plan Day #5 Patient doing better Still has some cough Shortness of breath is better Assessment and Plan -- negative COVID-19 virus infection -- Acute respiratory failure with hypoxia Current Visit: Yes Status: Acute Patient titrate O2 sats to more than 90% Home oxygen evaluation at discharge --Pneumonia Current Visit: Yes Status: Acute Empiric antibiotics, follow cultures Coronavirus negative Continue antibiotics --Right knee pain; X-ray right knee; mild tricompartmental degenerative changes No acute abnormality, pain medications, supportive care PT if needed --Sepsis secondary to UTI[E. coli] continue Rocephin --Accelerated hypertension Current Visit: Yes Status: Acute Continue current antihypertensives PRN Hydralazine -- DVT prophylaxis Current Visit: Yes Status: Acute SCD . Lovenox -- Advance care planning/full code Current Visit: Yes Status: Acute Possible discharge tomorrow a.m. Subjective Date of service: 01/21/20 Principal diagnosis: Sepsis with UTI Interval history: Day #5 Patient doing better Still has some cough Afebrile Patient ruled out for coronavirus 59 YO Female with HTN, DM, Obesity Hypoventilation Syndrome, Asthma presents to ED for evaluation. Patient states that she has experienced shortness of breath, fatigue, malaise, decreased exercise tolerance, dry cough, and generalized weakness over the past 2 days with progressively worsening symptoms over the same timeframe. Patient transported to [facility] via private vehicle for further care and evaluation of the aforementioned symptoms. Patient seen and evaluated in the emergency department. Lab and imaging studies reviewed. Patient was found to have a pulse oximetry of 72% on room air which is consistent with acute hypoxemic respiratory failure. Chest x-ray reveals bilateral pneumonia. Patient also found to have accelerated hypertension. Patient admitted to medical floor and initiated on COVID-19 protocol as well as pneumonia protocol. Coronavirus PCR has been ordered in the emergency department and is pending at the time of my admission. Patient denies fever, chills, chest pain, productive cough, skin rash, hemoptysis, unilateral leg swelling, calf pain, individual/family history of DVT/PE/bleeding/blood clotting disorders. Patient acknowledges exposure to coworkers who tested positive for COVID-19. Patient admitted to medical floor due to increased risk for pulmonary decompensation. Prior admission on 06/27/2019 reviewed. All medication listed at time of admission has been reconciled. Advanced care planning conducted in ED. Objective - Constitutional Vitals: Vital Signs - 12hr 01/21/20 01/21/20 11:57 19:07 Temperature 98.7 F Pulse Rate 84 87 Respiratory 19 19 Rate Blood Pressure 154/85 Blood Pressure 163/90 [Left] O2 Sat by Pulse 99 92 Oximetry General appearance: Present: no acute distress, well-nourished - EENT Eyes: PERRL, EOM intact ENT: hearing intact, clear oral mucosa Ears: bilateral: normal - Neck Neck: supple, normal ROM - Respiratory Respiratory effort: normal Respiratory: bilateral: CTA - Breasts Breasts: normal - Cardiovascular Heart rate: 78 Rhythm: regular Heart Sounds: Present: S1 & S2. Absent: gallop, rub Extremities: no ischemia, pulses intact, No edema, normal color, Full ROM - Gastrointestinal General gastrointestinal: Present: soft, non-tender, non-distended, normal bowel sounds Rectal Exam: deferred - Genitourinary Female genitourinary: normal - Integumentary Integumentary: clear, warm, dry - Musculoskeletal Musculoskeletal: 1, strength equal bilaterally - Neurologic Neurologic: moves all extremities - Psychiatric Psychiatric: memory intact, appropriate mood/affect, intact judgment & insight - Labs CBC & Chem 7: 01/21/20 06:44 01/21/20 06:44 Labs: Abnormal lab results 01/21/20 01/21/20 Range/Units 06:44 06:44 RDW 16.6 H (13.2-15.2) % Moody % (Auto) 8.3 H (0.0-7.3) % Eos % (Auto) 7.9 H (0.0-4.3) % Eos # 0.6 H (0.0-0.4) K/mm3 Chloride 97.2 L (98-107) mmol/L Carbon Dioxide 31 H (22-30) mmol/L BUN 23 H (7-17) mg/dL Glucose 124 H (65-100) mg/dL Albumin 3.6 L (3.9-5) g/dL HEART Score - HEART Score Troponin: Troponin T < 0.010 ng/mL (0.00-0.029) 01/17/20 19:30
[2020-01-21] MEDS: TEMAZEPAM 15 MG CAP PO PRN (23:20)
[2020-01-21] MEDS: diphenhydrAMINE 25 MG CAP PO PRN (23:20)
[2020-01-22] MEDS: GABAPENTIN 300 MG CAP PO SCH ×2 (06:42→13:28)
[2020-01-22] MEDS: LISINOPRIL 20 MG TAB PO SCH (10:03)
[2020-01-22] MEDS: amLODIPine 10 MG TAB PO SCH (10:04)
[2020-01-22] MEDS: hydroCHLOROthiazide 25 MG TAB PO SCH (10:04)
[2020-01-22 10:05] VITALS: BP 146/85
[2020-01-22] MEDS: AZITHROMYCIN 250 MG TAB PO SCH (10:08)
--- NOTE | 2020-01-22 13:19 | Discharge Summary ---
Providers - Providers Date of Admission: 01/17/20 17:25 Date of discharge: 01/22/20 Attending physician: MAGDALENO DINERO [facility] Condition: Stable Hospital course: Day #5 Patient doing better Still has some cough Afebrile Day #6 Patient doing well Patient to be discharged on oral antibiotics Patient ruled out for coronavirus 59 YO Female with HTN, DM, Obesity Hypoventilation Syndrome, Asthma presents to ED for evaluation. Patient states that she has experienced shortness of breath, fatigue, malaise, decreased exercise tolerance, dry cough, and generalized weakness over the past 2 days with progressively worsening symptoms over the same timeframe. Patient transported to [facility] via private vehicle for further care and evaluation of the aforementioned symptoms. Patient seen and evaluated in the emergency department. Lab and imaging studies reviewed. Patient was found to have a pulse oximetry of 72% on room air which is consistent with acute hypoxemic respiratory failure. Chest x-ray reveals bilateral pneumonia. Patient also found to have accelerated hypertension. Patient admitted to medical floor and initiated on COVID-19 protocol as well as pneumonia protocol. Coronavirus PCR has been ordered in the emergency department and is pending at the time of my admission. Patient denies fever, chills, chest pain, productive cough, skin rash, hemoptysis, unilateral leg swelling, calf pain, individual/family history of DVT/PE/bleeding/blood clotting disorders. Patient acknowledges exposure to coworkers who tested positive for COVID-19. Patient admitted to medical floor due to increased risk for pulmonary decompensation. Prior admission on 06/27/2019 reviewed. All medication listed at time of admission has been reconciled. Advanced care planning conducted in ED. Patient admitted to COVID floor and patient did well antibiotics. Hyperkalemia resolved Assessment and Plan -- negative COVID-19 virus infection -- Acute respiratory failure with hypoxia Current Visit: Yes Status: Acute Patient titrate O2 sats to more than 90% Home oxygen evaluation at discharge --Pneumonia Current Visit: Yes Status: Acute Empiric antibiotics, follow cultures Coronavirus negative Continue antibiotics Hyperkalemia resolved --Right knee pain; X-ray right knee; mild tricompartmental degenerative changes No acute abnormality, pain medications, supportive care PT if needed --Sepsis secondary to UTI[E. coli] continue Rocephin --Accelerated hypertension Current Visit: Yes Status: Acute Continue current antihypertensives PRN Hydralazine -- DVT prophylaxis Current Visit: Yes Status: Acute SCD . Lovenox -- Advance care planning/full code Current Visit: Yes Status: Acute Discharge home today Disposition: DC- TO HOME OR SELFCARE - Discharge Diagnoses (1) Acute respiratory failure with hypoxia Status: Acute (2) Acute hyperkalemia Status: Acute (3) Pneumonia Status: Acute Qualifiers: Laterality: bilateral (4) Suspected COVID-19 virus infection Status: Acute Comment: Ruled out (5) Hypertension Status: Acute Core Measure Documentation - Palliative Care Palliative Care/ Comfort Measures: Not Applicable - Core Measures Any of the following diagnoses?: none Exam - Constitutional Vitals: Temp Pulse Resp BP Pulse Ox 98.3 F 91 H 18 146/85 98 01/22/20 05:23 01/22/20 10:04 01/22/20 05:23 01/22/20 10:04 01/22/20 10:00 General appearance: Present: no acute distress, well-nourished - EENT Eyes: Present: PERRL ENT: hearing intact, clear oral mucosa - Neck Neck: Present: supple, normal ROM - Respiratory Respiratory effort: normal Respiratory: bilateral: CTA - Cardiovascular Heart rate: 78 Rhythm: regular Heart Sounds: Present: S1 & S2. Absent: rub, click - Extremities Extremities: no ischemia, pulses intact, pulses symmetrical, No edema Peripheral Pulses: within normal limits - Abdominal General gastrointestinal: Present: soft, non-tender, non-distended, normal bowel sounds Female genitourinary: Present: normal - Rectal Rectal Exam: deferred - Integumentary Integumentary: Present: clear, warm, dry - Musculoskeletal Musculoskeletal: gait normal, strength equal bilaterally - Psychiatric Psychiatric: appropriate mood/affect, intact judgment & insight - Neurologic Neurologic: CNII-XII intact, moves all extremities - Allied Health Allied health notes reviewed: nursing, case management Plan Activity: no restrictions Diet: low fat, low cholesterol, low salt Follow up with: RENITA OSULLIVAN MD [Primary Care Provider] - 3-5 Days Prescriptions: amLODIPine 10 mg PO QDAY #30 tablet Gabapentin 300 mg PO Q8H #90 capsule Potassium Chloride [K-Dur] 10 meq PO QDAY #30 tablet levoFLOXacin [Levaquin] 750 mg PO QDAY #5 tablet metFORMIN 1,000 mg PO BID 30 Days #60 ProAir HFA Inhaler 2 inh INHALATION QID PRN #1 PRN Reason: Shortness Of Breath Temazepam [Restoril] 15 mg PO QHS PRN #30 capsule PRN Reason: Sleep Lisinopril/Hydrochlorothiazide [Zestoretic 20-25 mg] 1 tab PO QDAY 30 Days #30 tab
== END 2020-01-22 17:34 | disposition home or self-care (01) | DRG 871 ==
LOC: ED 14:21 → 3A 17:25
PROVIDERS: ADMIT Internal Medicine; ATTEND Internal Medicine
DX: A41.9 Sepsis, unspecified organism (principal); J18.9 Pneumonia, unspecified organism; J96.01 Acute respiratory failure with hypoxia; E66.2 Morbid (severe) obesity with alveolar hypoventilation; N39.0 Urinary tract infection, site not specified; Z68.41 Body mass index [BMI] 40.0-44.9, adult; E87.5 Hyperkalemia; I50.9 Heart failure, unspecified; I11.0 Hypertensive heart disease with heart failure; E11.9 Type 2 diabetes mellitus without complications; J45.909 Unspecified asthma, uncomplicated; B96.20 Unspecified Escherichia coli [E. coli] as the cause of diseases classified elsewhere; M25.561 Pain in right knee; E05.90 Thyrotoxicosis, unspecified without thyrotoxic crisis or storm; Z90.49 Acquired absence of other specified parts of digestive tract; Z03.818 Encounter for observation for suspected exposure to other biological agents ruled out; Z79.899 Other long term (current) drug therapy; Z88.8 Allergy status to other drugs, medicaments and biological substances
CPT/HCPCS: 36415; 71045; 80048; 80053; 80076; 81001; 82140; 82728; 82947; 83615; 83880; 84145; 84484; 85025; 85379; 85610; 85730; 86140; 87040; 87076; 87086; 87186; 93005; 94640; 94760; G0378; J0456; J0696; J1815; J1940; J7050; U0003-CS

== ENCOUNTER 2020-02-11 05:49 | Inpatient (IN) | payer OTHER, SELFPAY ==
[2020-02-11] MEDS ORDERED: SODIUM CHLORIDE 0.9% 1000 ML 3,000 ML ONE (06:16)
[2020-02-11 06:53] LABS: Basophils # (Auto) 0.1 K/mm3 (0.0-0.1); Basophils % (Auto) 0.7 % (0.0-1.8); Eosinophils # (Auto) 0.5 K/mm3 (0.0-0.4); Hematocrit 37.3 % (30.3-42.9); Hemoglobin 11.8 gm/dl (10.1-14.3); Lymphocytes # (Auto) 1.4 K/mm3 (1.2-5.4); Lymphocytes % (Auto) 14.4 % (13.4-35.0); Mean Corpuscular HGB Conc 32 % (30-34); Mean Corpuscular Volume 90 fl (79-97); Monocytes # (Auto) 0.7 K/mm3 (0.0-0.8); Monocytes % (Auto) 7.3 % (0.0-7.3); Platelet Count 303 K/mm3 (140-440); Red Blood Count 4.16 M/mm3 (3.65-5.03); Red Cell Distribution Width 16.7 % (13.2-15.2)
[2020-02-11] MEDS ORDERED: SODIUM CHLORIDE 0.9% 1000 ML IV SOLN IV ONE (06:54)
[2020-02-11 07:07] LABS: INR 0.94 (0.87-1.13)
[2020-02-11 07:08] LABS: Partial Thromboplastin Time 29.7 Sec. (24.2-36.6)
--- NOTE | 2020-02-11 07:08 | Emergency Department Report ---
ED Altered Mental Status HPI - General Chief Complaint: Altered Mental Status Stated Complaint: ALTERED Time Seen by Provider: 02/11/20 06:07 Source: EMS Mode of arrival: Stretcher Limitations: Altered Mental Status - History of Present Illness Initial Comments: 59-year-old female with history of diabetes, hypertension, obesity hypoventilation syndrome, abdominal hernia, presents to ED with altered mental status. Spoke w/ daughter (Scarlet Retana [phone]) over the phone. States pt d//c from hosp approx 2 wks ago. Tested negative here, but was re-tested at [facility] 3 days ago b/c did not believe the negative result based on patient's symptoms. Has not received results yet. Pt has pulse ox at home, O2 was 68% RA yesterday. Pt then did nebulizer treatment and improved to 87%. Overnight, grandkids checked on pt and O2 sats were 39% RA. Daughter then went over to check on pt and unable to wake her up, so EMS was called. EMS reports O2 sats in the 40's upon arrival. MD Complaint: altered mental status -: This morning Severity: severe Consistency of Symptoms: constant Context: unknown - Related Data Previous Rx's Medication Instructions Recorded Last Taken Type Acetaminophen [Acetaminophen TAB] 1 tab PO Q4H PRN #15 tablet 07/03/19 Unknown Rx diphenhydrAMINE [Benadryl CAP] 25 mg PO Q8H PRN capsule 07/03/19 Unknown Rx Gabapentin 300 mg PO Q8H #90 capsule 01/22/20 Unknown Rx Lisinopril/Hydrochlorothiazide 1 tab PO QDAY 30 Days #30 tab 01/22/20 Unknown Rx [Zestoretic 20-25 mg] Potassium Chloride [K-Dur] 10 meq PO QDAY #30 tablet 01/22/20 Unknown Rx ProAir HFA Inhaler 2 inh INHALATION QID PRN #1 01/22/20 Unknown Rx Temazepam [Restoril] 15 mg PO QHS PRN #30 capsule 01/22/20 Unknown Rx amLODIPine 10 mg PO QDAY #30 tablet 01/22/20 Unknown Rx levoFLOXacin [Levaquin] 750 mg PO QDAY #5 tablet 01/22/20 Unknown Rx metFORMIN 1,000 mg PO BID 30 Days #60 01/22/20 Unknown Rx Allergies Allergy/AdvReac Type Severity Reaction Status Date / Time prochlorperazine Allergy Unknown Verified 01/17/20 14:27 [From Compazine] ED Review of Systems ROS: Stated complaint: ALTERED Other details as noted in HPI Comment: Unobtainable due to pts medical conditions ED Past Medical Hx - Past Medical History Previous Medical History?: Yes Hx Hypertension: Yes Hx Heart Attack/AMI: No Hx Diabetes: Yes Hx Liver Disease: No Hx Renal Disease: No Hx Sickle Cell Disease: No Hx Seizures: No Hx Asthma: No Hx COPD: No - Surgical History Past Surgical History?: Yes Hx Pacemaker: No Hx Internal Defibrillator: No Hx Appendectomy: Yes Additional Surgical History: c sections x 2. abd hernia x 5. appendectomy - Social History Smoking Status: Unknown if ever smoked - Medications Home Medications: Home Medications Medication Instructions Recorded Confirmed Last Taken Type Acetaminophen [Acetaminophen TAB] 1 tab PO Q4H PRN #15 tablet 07/03/19 01/18/20 Unknown Rx diphenhydrAMINE [Benadryl CAP] 25 mg PO Q8H PRN capsule 07/03/19 01/18/20 Unknown Rx Gabapentin 300 mg PO Q8H #90 capsule 01/22/20 Unknown Rx Lisinopril/Hydrochlorothiazide 1 tab PO QDAY 30 Days #30 tab 01/22/20 Unknown Rx [Zestoretic 20-25 mg] Potassium Chloride [K-Dur] 10 meq PO QDAY #30 tablet 01/22/20 Unknown Rx ProAir HFA Inhaler 2 inh INHALATION QID PRN #1 01/22/20 Unknown Rx Temazepam [Restoril] 15 mg PO QHS PRN #30 capsule 01/22/20 Unknown Rx amLODIPine 10 mg PO QDAY #30 tablet 01/22/20 Unknown Rx levoFLOXacin [Levaquin] 750 mg PO QDAY #5 tablet 01/22/20 Unknown Rx metFORMIN 1,000 mg PO BID 30 Days #60 01/22/20 Unknown Rx ED Physical Exam - General Limitations: Altered Mental Status General appearance: obtunded - Head Head exam: Present: atraumatic, normocephalic - Eye Eye exam: Present: normal appearance, PERRL - ENT ENT exam: Present: mucous membranes moist - Neck Neck exam: Present: normal inspection - Respiratory Respiratory exam: Present: normal lung sounds bilaterally. Absent: respiratory distress - Cardiovascular Cardiovascular Exam: Present: regular rate, normal rhythm - GI/Abdominal GI/Abdominal exam: Present: soft, distended, hernia (Large ventral) - Extremities Exam Extremities exam: Present: normal inspection - Skin Skin exam: Present: warm, dry, intact, normal color ED Course Vital Signs 02/11/20 02/11/20 02/11/20 05:48 05:57 06:00 Temperature Pulse Rate 91 H 91 H Respiratory 13 15 Rate Blood Pressure 109/40 Blood Pressure [right arm] O2 Sat by Pulse 97 97 97 Oximetry 02/11/20 02/11/20 02/11/20 06:16 06:30 06:46 Temperature Pulse Rate 88 87 87 Respiratory 18 14 16 Rate Blood Pressure 72/30 70/27 89/39 Blood Pressure [right arm] O2 Sat by Pulse 92 96 96 Oximetry 02/11/20 02/11/20 02/11/20 07:00 07:15 07:30 Temperature Pulse Rate 87 87 88 Respiratory 20 14 16 Rate Blood Pressure 109/40 92/42 Blood Pressure 92/42 [right arm] O2 Sat by Pulse 95 94 97 Oximetry 02/11/20 02/11/20 02/11/20 07:31 08:13 08:15 Temperature Pulse Rate 90 81 82 Respiratory 15 13 12 Rate Blood Pressure 143/60 143/60 109/46 Blood Pressure [right arm] O2 Sat by Pulse 95 99 98 Oximetry 02/11/20 02/11/20 02/11/20 08:30 08:40 08:45 Temperature Pulse Rate 81 80 91 H Respiratory 22 20 Rate Blood Pressure 81/36 81/36 97/40 Blood Pressure [right arm] O2 Sat by Pulse 95 98 91 Oximetry 02/11/20 02/11/20 02/11/20 09:00 09:15 09:21 Temperature 92 F L Pulse Rate 75 79 70 Respiratory 22 17 12 Rate Blood Pressure 97/40 48/23 Blood Pressure 60/42 [right arm] O2 Sat by Pulse 89 88 97 Oximetry 02/11/20 02/11/20 09:31 09:45 Temperature Pulse Rate 69 72 Respiratory 22 22 Rate Blood Pressure 87/31 104/40 Blood Pressure [right arm] O2 Sat by Pulse 97 94 Oximetry - Reevaluation(s) Reevaluation #1: 02/11/20 09:35 Repeat CXR reviewed. RT instructed to advance ET tube 4 cm. Reevaluation #2: 02/11/20 09:55 CT Head results not crossing over into [employer] [facility]. However, tech able to print out report. Impression " no acute intracranial abnormality." - Central Line Placement Right Femoral Consent Obtained: emergent situation Time Out Performed: Yes Patient Placed on Monitor/Pulse Ox: Yes Prep: mask, gown, gloves Central Line Prep: Chlorhexidine scrub Ultrasound Used for Placement: No Central Line Lumen Inserted: triple Bloods Obtained for Lab: No Central Line Position: good blood return, all ports aspirated, flus, sutured in place with nyl Dressing Applied: Tegaderm Patient Tolerated Procedure: well Complications: none - Intubation Time Out Performed: Yes Sedative: none Paralytic: Succinylcholine Mg Given: 120 Laryngoscope: fiberoptic video scope ET Tube Size: 7.5 Tube Secured Depth (cm): 22 Tube Secured Location: lips Tube Placement Confirmation: visualized tube passing t, equal breath sounds bilat, no breath sounds over epi, confirmation by capnometr Patient Tolerated Procedure: well Intubation Complications: none - Lab Data Result diagrams: 02/11/20 06:29 02/11/20 07:44 Lab Results 02/11/20 02/11/20 02/11/20 Range/Units 06:29 06:29 06:29 WBC 9.7 (4.5-11.0) K/mm3 RBC 4.16 (3.65-5.03) M/mm3 Hgb 11.8 (10.1-14.3) gm/dl Hct 37.3 (30.3-42.9) % MCV 90 (79-97) fl MCH 28 (28-32) pg MCHC 32 (30-34) % RDW 16.7 H (13.2-15.2) % Plt Count 303 (140-440) K/mm3 Lymph % (Auto) 14.4 (13.4-35.0) % [place] % (Auto) 7.3 (0.0-7.3) % Eos % (Auto) 5.0 H (0.0-4.3) % Baso % (Auto) 0.7 (0.0-1.8) % Lymph # 1.4 (1.2-5.4) K/mm3 [place] # 0.7 (0.0-0.8) K/mm3 Eos # 0.5 H (0.0-0.4) K/mm3 Baso # 0.1 (0.0-0.1) K/mm3 Seg Neutrophils % 72.6 H (40.0-70.0) % Seg Neutrophils # 7.0 (1.8-7.7) K/mm3 PT (12.2-14.9) Sec. INR (0.87-1.13) APTT (24.2-36.6) Sec. D-Dimer (0-234) ng/mlDDU ABG pH (7.350-7.450) pH Units ABG pCO2 mm Hg ABG pO2 (80.0-90.0) mm Hg ABG HCO3 (20.0-26.0) mmol/L ABG O2 Saturation (95.0-99.0) % ABG O2 Content (0.0-44) ABG Base Excess (-2.0-3.0) mmol/L ABG Hemoglobin (12.0-16.0) gm/dl ABG Carboxyhemoglobin (0.0-5.0) % ABG Methemoglobin (0.0-1.5) % Oxyhemoglobin (95.0-99.0) % FiO2 % Sodium 132 L (137-145) mmol/L Potassium 5.1 H (3.6-5.0) mmol/L Chloride 94.7 L (98-107) mmol/L Carbon Dioxide 28 (22-30) mmol/L Anion Gap 14 mmol/L BUN 23 H (7-17) mg/dL Creatinine 1.3 H (0.6-1.2) mg/dL Estimated GFR 51 ml/min BUN/Creatinine Ratio 18 % Glucose 273 H (65-100) mg/dL POC Glucose (70-105) Lactic Acid (0.7-2.0) mmol/L Calcium 8.2 L (8.4-10.2) mg/dL Ferritin (10.0-200.0) ng/mL Total Bilirubin < 0.20 (0.1-1.2) mg/dL AST 23 (5-40) units/L ALT 18 (7-56) units/L Alkaline Phosphatase 115 (35-129) units/L Ammonia 56.0 (25-60) umol/L Lactate Dehydrogenase (91-180) units/L Troponin T < 0.010 (0.00-0.029) ng/mL C-Reactive Protein (0.00-1.30) mg/dL NT-Pro-B Natriuret Pep (0-900) pg/mL Total Protein 6.2 L (6.3-8.2) g/dL Albumin 3.6 L (3.9-5) g/dL Albumin/Globulin Ratio 1.4 % Procalcitonin (<0.15) ng/mL TSH (0.270-4.200) mlU/mL Urine Color (Yellow) Urine Turbidity (Clear) Urine pH (5.0-7.0) Ur Specific [place] (1.003-1.030) Urine Protein (Negative) mg/dL Urine Glucose (UA) (Negative) mg/dL Urine Ketones (Negative) mg/dL Urine Blood (Negative) Urine Nitrite (Negative) Urine Bilirubin (Negative) Urine Urobilinogen (<2.0) mg/dL Ur Leukocyte Esterase (Negative) Urine WBC (Auto) (0.0-6.0) /HPF Urine RBC (Auto) (0.0-6.0) /HPF U Epithel Cells (Auto) (0-13.0) /HPF Urine Bacteria (Auto) (Negative) /HPF Urine Mucus /HPF Urine Opiates Screen Urine Methadone Screen Ur Barbiturates Screen Ur Phencyclidine Scrn Ur Amphetamines Screen U Benzodiazepines Scrn Urine Cocaine Screen U Marijuana (THC) Screen Drugs of Abuse Note Plasma/Serum Alcohol (0-0.07) % 02/11/20 02/11/20 02/11/20 Range/Units 06:29 06:38 06:38 WBC (4.5-11.0) K/mm3 RBC (3.65-5.03) M/mm3 Hgb (10.1-14.3) gm/dl Hct (30.3-42.9) % MCV (79-97) fl MCH (28-32) pg MCHC (30-34) % RDW (13.2-15.2) % Plt Count (140-440) K/mm3 Lymph % (Auto) (13.4-35.0) % [place] % (Auto) (0.0-7.3) % Eos % (Auto) (0.0-4.3) % Baso % (Auto) (0.0-1.8) % Lymph # (1.2-5.4) K/mm3 [place] # (0.0-0.8) K/mm3 Eos # (0.0-0.4) K/mm3 Baso # (0.0-0.1) K/mm3 Seg Neutrophils % (40.0-70.0) % Seg Neutrophils # (1.8-7.7) K/mm3 PT 12.7 (12.2-14.9) Sec. INR 0.94 (0.87-1.13) APTT 29.7 (24.2-36.6) Sec. D-Dimer (0-234) ng/mlDDU ABG pH (7.350-7.450) pH Units ABG pCO2 mm Hg ABG pO2 (80.0-90.0) mm Hg ABG HCO3 (20.0-26.0) mmol/L ABG O2 Saturation (95.0-99.0) % ABG O2 Content (0.0-44) ABG Base Excess (-2.0-3.0) mmol/L ABG Hemoglobin (12.0-16.0) gm/dl ABG Carboxyhemoglobin (0.0-5.0) % ABG Methemoglobin (0.0-1.5) % Oxyhemoglobin (95.0-99.0) % FiO2 % Sodium (137-145) mmol/L Potassium (3.6-5.0) mmol/L Chloride (98-107) mmol/L Carbon Dioxide (22-30) mmol/L Anion Gap mmol/L BUN (7-17) mg/dL Creatinine (0.6-1.2) mg/dL Estimated GFR ml/min BUN/Creatinine Ratio % Glucose (65-100) mg/dL POC Glucose (70-105) Lactic Acid 2.40 H* (0.7-2.0) mmol/L Calcium (8.4-10.2) mg/dL Ferritin (10.0-200.0) ng/mL Total Bilirubin (0.1-1.2) mg/dL AST (5-40) units/L ALT (7-56) units/L Alkaline Phosphatase (35-129) units/L Ammonia (25-60) umol/L Lactate Dehydrogenase (91-180) units/L Troponin T (0.00-0.029) ng/mL C-Reactive Protein (0.00-1.30) mg/dL NT-Pro-B Natriuret Pep (0-900) pg/mL Total Protein (6.3-8.2) g/dL Albumin (3.9-5) g/dL Albumin/Globulin Ratio % Procalcitonin (<0.15) ng/mL TSH (0.270-4.200) mlU/mL Urine Color (Yellow) Urine Turbidity (Clear) Urine pH (5.0-7.0) Ur Specific [place] (1.003-1.030) Urine Protein (Negative) mg/dL Urine Glucose (UA) (Negative) mg/dL Urine Ketones (Negative) mg/dL Urine Blood (Negative) Urine Nitrite (Negative) Urine Bilirubin (Negative) Urine Urobilinogen (<2.0) mg/dL Ur Leukocyte Esterase (Negative) Urine WBC (Auto) (0.0-6.0) /HPF Urine RBC (Auto) (0.0-6.0) /HPF U Epithel Cells (Auto) (0-13.0) /HPF Urine Bacteria (Auto) (Negative) /HPF Urine Mucus /HPF Urine Opiates Screen Urine Methadone Screen Ur Barbiturates Screen Ur Phencyclidine Scrn Ur Amphetamines Screen U Benzodiazepines Scrn Urine Cocaine Screen U Marijuana (THC) Screen Drugs of Abuse Note Plasma/Serum Alcohol < 0.01 (0-0.07) % 02/11/20 02/11/20 02/11/20 Range/Units 06:38 06:38 06:39 WBC (4.5-11.0) K/mm3 RBC (3.65-5.03) M/mm3 Hgb (10.1-14.3) gm/dl Hct (30.3-42.9) % MCV (79-97) fl MCH (28-32) pg MCHC (30-34) % RDW (13.2-15.2) % Plt Count (140-440) K/mm3 Lymph % (Auto) (13.4-35.0) % [place] % (Auto) (0.0-7.3) % Eos % (Auto) (0.0-4.3) % Baso % (Auto) (0.0-1.8) % Lymph # (1.2-5.4) K/mm3 [place] # (0.0-0.8) K/mm3 Eos # (0.0-0.4) K/mm3 Baso # (0.0-0.1) K/mm3 Seg Neutrophils % (40.0-70.0) % Seg Neutrophils # (1.8-7.7) K/mm3 PT (12.2-14.9) Sec. INR (0.87-1.13) APTT (24.2-36.6) Sec. D-Dimer 300.90 H (0-234) ng/mlDDU ABG pH (7.350-7.450) pH Units ABG pCO2 mm Hg ABG pO2 (80.0-90.0) mm Hg ABG HCO3 (20.0-26.0) mmol/L ABG O2 Saturation (95.0-99.0) % ABG O2 Content (0.0-44) ABG Base Excess (-2.0-3.0) mmol/L ABG Hemoglobin (12.0-16.0) gm/dl ABG Carboxyhemoglobin (0.0-5.0) % ABG Methemoglobin (0.0-1.5) % Oxyhemoglobin (95.0-99.0) % FiO2 % Sodium (137-145) mmol/L Potassium (3.6-5.0) mmol/L Chloride (98-107) mmol/L Carbon Dioxide (22-30) mmol/L Anion Gap mmol/L BUN (7-17) mg/dL Creatinine (0.6-1.2) mg/dL Estimated GFR ml/min BUN/Creatinine Ratio % Glucose (65-100) mg/dL POC Glucose 248 H (70-105) Lactic Acid (0.7-2.0) mmol/L Calcium (8.4-10.2) mg/dL Ferritin (10.0-200.0) ng/mL Total Bilirubin (0.1-1.2) mg/dL AST (5-40) units/L ALT (7-56) units/L Alkaline Phosphatase (35-129) units/L Ammonia (25-60) umol/L Lactate Dehydrogenase (91-180) units/L Troponin T (0.00-0.029) ng/mL C-Reactive Protein (0.00-1.30) mg/dL NT-Pro-B Natriuret Pep 101.8 (0-900) pg/mL Total Protein (6.3-8.2) g/dL Albumin (3.9-5) g/dL Albumin/Globulin Ratio % Procalcitonin (<0.15) ng/mL TSH (0.270-4.200) mlU/mL Urine Color (Yellow) Urine Turbidity (Clear) Urine pH (5.0-7.0) Ur Specific [place] (1.003-1.030) Urine Protein (Negative) mg/dL Urine Glucose (UA) (Negative) mg/dL Urine Ketones (Negative) mg/dL Urine Blood (Negative) Urine Nitrite (Negative) Urine Bilirubin (Negative) Urine Urobilinogen (<2.0) mg/dL Ur Leukocyte Esterase (Negative) Urine WBC (Auto) (0.0-6.0) /HPF Urine RBC (Auto) (0.0-6.0) /HPF U Epithel Cells (Auto) (0-13.0) /HPF Urine Bacteria (Auto) (Negative) /HPF Urine Mucus /HPF Urine Opiates Screen Urine Methadone Screen Ur Barbiturates Screen Ur Phencyclidine Scrn Ur Amphetamines Screen U Benzodiazepines Scrn Urine Cocaine Screen U Marijuana (THC) Screen Drugs of Abuse Note Plasma/Serum Alcohol (0-0.07) % 02/11/20 02/11/20 02/11/20 Range/Units 07:30 07:44 07:44 WBC (4.5-11.0) K/mm3 RBC (3.65-5.03) M/mm3 Hgb (10.1-14.3) gm/dl Hct (30.3-42.9) % MCV (79-97) fl MCH (28-32) pg MCHC (30-34) % RDW (13.2-15.2) % Plt Count (140-440) K/mm3 Lymph % (Auto) (13.4-35.0) % [place] % (Auto) (0.0-7.3) % Eos % (Auto) (0.0-4.3) % Baso % (Auto) (0.0-1.8) % Lymph # (1.2-5.4) K/mm3 [place] # (0.0-0.8) K/mm3 Eos # (0.0-0.4) K/mm3 Baso # (0.0-0.1) K/mm3 Seg Neutrophils % (40.0-70.0) % Seg Neutrophils # (1.8-7.7) K/mm3 PT (12.2-14.9) Sec. INR (0.87-1.13) APTT (24.2-36.6) Sec. D-Dimer (0-234) ng/mlDDU ABG pH 6.945 L* (7.350-7.450) pH Units ABG pCO2 140.1 mm Hg ABG pO2 199.6 H (80.0-90.0) mm Hg ABG HCO3 29.7 H (20.0-26.0) mmol/L ABG O2 Saturation 98.7 (95.0-99.0) % ABG O2 Content 17.3 (0.0-44) ABG Base Excess -5.7 L (-2.0-3.0) mmol/L ABG Hemoglobin 12.8 (12.0-16.0) gm/dl ABG Carboxyhemoglobin 4.4 (0.0-5.0) % ABG Methemoglobin 0.6 (0.0-1.5) % Oxyhemoglobin 93.8 L (95.0-99.0) % FiO2 100 % Sodium (137-145) mmol/L Potassium (3.6-5.0) mmol/L Chloride (98-107) mmol/L Carbon Dioxide (22-30) mmol/L Anion Gap mmol/L BUN (7-17) mg/dL Creatinine (0.6-1.2) mg/dL Estimated GFR ml/min BUN/Creatinine Ratio % Glucose 270 H (65-100) mg/dL POC Glucose (70-105) Lactic Acid (0.7-2.0) mmol/L Calcium (8.4-10.2) mg/dL Ferritin (10.0-200.0) ng/mL Total Bilirubin (0.1-1.2) mg/dL AST (5-40) units/L ALT (7-56) units/L Alkaline Phosphatase (35-129) units/L Ammonia (25-60) umol/L Lactate Dehydrogenase 191 H (91-180) units/L Troponin T (0.00-0.029) ng/mL C-Reactive Protein 1.50 H (0.00-1.30) mg/dL NT-Pro-B Natriuret Pep (0-900) pg/mL Total Protein (6.3-8.2) g/dL Albumin (3.9-5) g/dL Albumin/Globulin Ratio % Procalcitonin (<0.15) ng/mL TSH 1.880 (0.270-4.200) mlU/mL Urine Color (Yellow) Urine Turbidity (Clear) Urine pH (5.0-7.0) Ur Specific [place] (1.003-1.030) Urine Protein (Negative) mg/dL Urine Glucose (UA) (Negative) mg/dL Urine Ketones (Negative) mg/dL Urine Blood (Negative) Urine Nitrite (Negative) Urine Bilirubin (Negative) Urine Urobilinogen (<2.0) mg/dL Ur Leukocyte Esterase (Negative) Urine WBC (Auto) (0.0-6.0) /HPF Urine RBC (Auto) (0.0-6.0) /HPF U Epithel Cells (Auto) (0-13.0) /HPF Urine Bacteria (Auto) (Negative) /HPF Urine Mucus /HPF Urine Opiates Screen Urine Methadone Screen Ur Barbiturates Screen Ur Phencyclidine Scrn Ur Amphetamines Screen U Benzodiazepines Scrn Urine Cocaine Screen U Marijuana (THC) Screen Drugs of Abuse Note Plasma/Serum Alcohol (0-0.07) % 02/11/20 02/11/20 02/11/20 Range/Units 07:44 07:44 08:35 WBC (4.5-11.0) K/mm3 RBC (3.65-5.03) M/mm3 Hgb (10.1-14.3) gm/dl Hct (30.3-42.9) % MCV (79-97) fl MCH (28-32) pg MCHC (30-34) % RDW (13.2-15.2) % Plt Count (140-440) K/mm3 Lymph % (Auto) (13.4-35.0) % [place] % (Auto) (0.0-7.3) % Eos % (Auto) (0.0-4.3) % Baso % (Auto) (0.0-1.8) % Lymph # (1.2-5.4) K/mm3 [place] # (0.0-0.8) K/mm3 Eos # (0.0-0.4) K/mm3 Baso # (0.0-0.1) K/mm3 Seg Neutrophils % (40.0-70.0) % Seg Neutrophils # (1.8-7.7) K/mm3 PT (12.2-14.9) Sec. INR (0.87-1.13) APTT (24.2-36.6) Sec. D-Dimer (0-234) ng/mlDDU ABG pH (7.350-7.450) pH Units ABG pCO2 mm Hg ABG pO2 (80.0-90.0) mm Hg ABG HCO3 (20.0-26.0) mmol/L ABG O2 Saturation (95.0-99.0) % ABG O2 Content (0.0-44) ABG Base Excess (-2.0-3.0) mmol/L ABG Hemoglobin (12.0-16.0) gm/dl ABG Carboxyhemoglobin (0.0-5.0) % ABG Methemoglobin (0.0-1.5) % Oxyhemoglobin (95.0-99.0) % FiO2 % Sodium (137-145) mmol/L Potassium (3.6-5.0) mmol/L Chloride (98-107) mmol/L Carbon Dioxide (22-30) mmol/L Anion Gap mmol/L BUN (7-17) mg/dL Creatinine (0.6-1.2) mg/dL Estimated GFR ml/min BUN/Creatinine Ratio % Glucose (65-100) mg/dL POC Glucose (70-105) Lactic Acid 2.00 (0.7-2.0) mmol/L Calcium (8.4-10.2) mg/dL Ferritin 150.5 (10.0-200.0) ng/mL Total Bilirubin (0.1-1.2) mg/dL AST (5-40) units/L ALT (7-56) units/L Alkaline Phosphatase (35-129) units/L Ammonia (25-60) umol/L Lactate Dehydrogenase (91-180) units/L Troponin T (0.00-0.029) ng/mL C-Reactive Protein (0.00-1.30) mg/dL NT-Pro-B Natriuret Pep (0-900) pg/mL Total Protein (6.3-8.2) g/dL Albumin (3.9-5) g/dL Albumin/Globulin Ratio % Procalcitonin < 0.05 (<0.15) ng/mL TSH (0.270-4.200) mlU/mL Urine Color (Yellow) Urine Turbidity (Clear) Urine pH (5.0-7.0) Ur Specific [place] (1.003-1.030) Urine Protein (Negative) mg/dL Urine Glucose (UA) (Negative) mg/dL Urine Ketones (Negative) mg/dL Urine Blood (Negative) Urine Nitrite (Negative) Urine Bilirubin (Negative) Urine Urobilinogen (<2.0) mg/dL Ur Leukocyte Esterase (Negative) Urine WBC (Auto) (0.0-6.0) /HPF Urine RBC (Auto) (0.0-6.0) /HPF U Epithel Cells (Auto) (0-13.0) /HPF Urine Bacteria (Auto) (Negative) /HPF Urine Mucus /HPF Urine Opiates Screen Urine Methadone Screen Ur Barbiturates Screen Ur Phencyclidine Scrn Ur Amphetamines Screen U Benzodiazepines Scrn Urine Cocaine Screen U Marijuana (THC) Screen Drugs of Abuse Note Plasma/Serum Alcohol (0-0.07) % 02/11/20 02/11/20 Range/Units Unknown Unknown WBC (4.5-11.0) K/mm3 RBC (3.65-5.03) M/mm3 Hgb (10.1-14.3) gm/dl Hct (30.3-42.9) % MCV (79-97) fl MCH (28-32) pg MCHC (30-34) % RDW (13.2-15.2) % Plt Count (140-440) K/mm3 Lymph % (Auto) (13.4-35.0) % [place] % (Auto) (0.0-7.3) % Eos % (Auto) (0.0-4.3) % Baso % (Auto) (0.0-1.8) % Lymph # (1.2-5.4) K/mm3 [place] # (0.0-0.8) K/mm3 Eos # (0.0-0.4) K/mm3 Baso # (0.0-0.1) K/mm3 Seg Neutrophils % (40.0-70.0) % Seg Neutrophils # (1.8-7.7) K/mm3 PT (12.2-14.9) Sec. INR (0.87-1.13) APTT (24.2-36.6) Sec. D-Dimer (0-234) ng/mlDDU ABG pH (7.350-7.450) pH Units ABG pCO2 mm Hg ABG pO2 (80.0-90.0) mm Hg ABG HCO3 (20.0-26.0) mmol/L ABG O2 Saturation (95.0-99.0) % ABG O2 Content (0.0-44) ABG Base Excess (-2.0-3.0) mmol/L ABG Hemoglobin (12.0-16.0) gm/dl ABG Carboxyhemoglobin (0.0-5.0) % ABG Methemoglobin (0.0-1.5) % Oxyhemoglobin (95.0-99.0) % FiO2 % Sodium (137-145) mmol/L Potassium (3.6-5.0) mmol/L Chloride (98-107) mmol/L Carbon Dioxide (22-30) mmol/L Anion Gap mmol/L BUN (7-17) mg/dL Creatinine (0.6-1.2) mg/dL Estimated GFR ml/min BUN/Creatinine Ratio % Glucose (65-100) mg/dL POC Glucose (70-105) Lactic Acid (0.7-2.0) mmol/L Calcium (8.4-10.2) mg/dL Ferritin (10.0-200.0) ng/mL Total Bilirubin (0.1-1.2) mg/dL AST (5-40) units/L ALT (7-56) units/L Alkaline Phosphatase (35-129) units/L Ammonia (25-60) umol/L Lactate Dehydrogenase (91-180) units/L Troponin T (0.00-0.029) ng/mL C-Reactive Protein (0.00-1.30) mg/dL NT-Pro-B Natriuret Pep (0-900) pg/mL Total Protein (6.3-8.2) g/dL Albumin (3.9-5) g/dL Albumin/Globulin Ratio % Procalcitonin (<0.15) ng/mL TSH (0.270-4.200) mlU/mL Urine Color Yellow (Yellow) Urine Turbidity Cloudy (Clear) Urine pH 5.0 (5.0-7.0) Ur Specific [place] 1.015 (1.003-1.030) Urine Protein 100 mg/dl (Negative) mg/dL Urine Glucose (UA) Neg (Negative) mg/dL Urine Ketones Neg (Negative) mg/dL Urine Blood Sm (Negative) Urine Nitrite Neg (Negative) Urine Bilirubin Neg (Negative) Urine Urobilinogen 2.0 (<2.0) mg/dL Ur Leukocyte Esterase Neg (Negative) Urine WBC (Auto) 3.0 (0.0-6.0) /HPF Urine RBC (Auto) 1.0 (0.0-6.0) /HPF U Epithel Cells (Auto) 3.0 (0-13.0) /HPF Urine Bacteria (Auto) 1+ (Negative) /HPF Urine Mucus Few /HPF Urine Opiates Screen Negative Urine Methadone Screen Negative Ur Barbiturates Screen Negative Ur Phencyclidine Scrn Negative Ur Amphetamines Screen Negative U Benzodiazepines Scrn Positive Urine Cocaine Screen Negative U Marijuana (THC) Screen Positive Drugs of Abuse Note Disclamer Plasma/Serum Alcohol (0-0.07) % - EKG Data -: EKG Interpreted by [facility] EKG shows normal: sinus rhythm, axis, intervals, QRS complexes, ST-T waves Rate: normal Interpretation: no acute changes - Radiology Data Radiology results: report reviewed, image reviewed - Medical Decision Making 67-year-old female presents to ED with altered mental status. Patient found to have CO2 of 140. Patient was intubated due to her hypercapnia. When she initially arrived she was also hypotensive with systolic BP in the 70s. EMS reports patient had O2 sat in the 40s, however on nonrebreather her sats were normal. Patient also found to be hypothermic, bear hugger applied. Sepsis protocol was initiated. Patient received 30 cc/kg fluid bolus, with initial improvement in blood pressure. However patient became hypotensive began, so Levophed was initiated. Empiric antibiotics ordered, vancomycin and cefepime. Lactic acid 2.4. WBC normal. Chest x-ray showed congestion, BNP normal. ET tube was found to be high on second chest x-ray, so RT instructed to advance ET tube [address] head negative for any acute findings. Repeat COVID test was sent along with COVID markers. Patient will be admitted to hospitalist for further management. Critical Care Time: Yes Critical care time in (mins) excluding proc time.: 35 Critical care attestation.: If time is entered above; I have spent that time in minutes in the direct care of this critically ill patient, excluding procedure time. Critical Care Time: 35 min ED Disposition Clinical Impression: Acute respiratory failure with hypoxia and hypercapnia, CO2 narcosis, Hypotension, SIRS (systemic inflammatory response syndrome), Suspected COVID-19 virus infection Disposition: OP ADMIT IP TO THIS HOSP Is pt being admited?: Yes Condition: Stable Referrals: PRIMARY CARE, [Primary Care Provider] - 3-5 Days Time of Disposition: 10:07
[2020-02-11] MEDS ORDERED: CEFEPIME/NS 2 GM/100 ML 2 GM/100 ML BAG IV ONE ×2 (07:09→17:04)
[2020-02-11 07:23] LABS: Alanine Aminotransferase 18 units/L (7-56); Albumin 3.6 g/dL (3.9-5); BUN/Creatinine Ratio 18; Blood Urea Nitrogen 23 mg/dL (7-17); Calcium 8.2 mg/dL (8.4-10.2); Hemolysis Index 2
[2020-02-11] MEDS ORDERED: VANCOMYCIN 1,750 MG in SODIUM CHLORIDE 0.9% 500 ML 500 ML IV ONE (07:30)
--- NOTE | 2020-02-11 07:50 | XRay Report ---
CHEST 1 VIEW [id number] INDICATION / CLINICAL INFORMATION: Altered mental status COMPARISON: 01/17/2020 FINDINGS: SUPPORT DEVICES: None HEART / MEDIASTINUM: Stable. LUNGS / PLEURA: Congestive changes appear mildly more prominent. Mild interstitial edema is seen. Rig ht base is more clear however. No definite areas of consolidation are seen. No pneumothorax. ADDITIONAL FINDINGS: No significant additional findings. IMPRESSION: Congestion Signer Name: Ayan Vera MD Signed: 02/11/2020 7:45 AM Workstation Name: [id number]
[2020-02-11 07:58] LABS: ABG Base Excess -5.7 mmol/L (-2.0-3.0); ABG HCO3 29.7 mmol/L (20.0-26.0); ABG Methemoglobin 0.6 % (0.0-1.5); ABG Oxygen Saturation 98.7 % (95.0-99.0); ABG PCO2 140.1 mm Hg; ABG PO2 199.6 mm Hg (80.0-90.0)
[2020-02-11 08:05] LABS: ABG PH 6.945 pH Units (7.350-7.450)
[2020-02-11] MEDS ORDERED: SUCCINYLCHOLINE CHLORIDE 200 MG/10 ML INJ MDV ONE (08:19)
[2020-02-11 08:23] LABS: C-Reactive Protein 1.5 mg/dL (0.00-1.30)
[2020-02-11] MEDS ORDERED: MIDAZOLAM 5 MG/5 ML INJ MDV IV ONE ×2 (08:49→16:42)
[2020-02-11 08:55] LABS: Bacteria,Urine 1+ /HPF (Negative); Bilirubin,Urine NEG (Negative); Blood,Urine SM (Negative); Color,Urine Yellow (Yellow); Mucus,Urine FEW /HPF
[2020-02-11] MEDS: NORepinephrine/NS 4 MG-250 ML 4 MG/250 ML BAG IV SCH ×2 (09:00→14:45)
[2020-02-11 09:13] LABS: Amphetamine Screen,Urine Negative; Cocaine Screen,Urine Negative; Methadone Screen,Urine Negative; Opiate Screen,Urine Negative
[2020-02-11 09:26] LABS: Benzodiazepines Screen,Urine Positive; Cannabinoid Screen,Urine Positive
[2020-02-11] MEDS ORDERED: MIDAZOLAM 5 MG/5 ML INJ MDV IV NR ×2 (10:00→17:00)
--- NOTE | 2020-02-11 10:15 | History and Physical Report ---
History of Present Illness Date of examination: 02/11/20 Date of admission: 02/11/2020 Chief complaint: Altered level of consciousness/acute respiratory failure History of present illness: 59-year-old morbidly obese female patient with with past medical history of diabetes, hypertension, obesity hypoventilation syndrome, abdominal hernia, was brought to the emergency room with history of altered mental status. Patient's daughter (Scarlet Retana [phone]) gave some history to the ER physician over the phone. States pt was d//c from hosp approx 2 wks ago. Tested negative for COVID, but was re-tested at [facility] 3 days ago b/c did not believe the negative result based on patient's symptoms. Has not received results yet. Pt has pulse ox at home, O2 was 68% RA yesterday. Pt then did nebulizer treatment and improved to 87%. Overnight, grandkids checked on pt and O2 sats were 39% RA. Daughter then went over to check on pt and unable to wake her up, so EMS was called. EMS reports O2 sats in the 40's upon arrival. In the ER patient was in acute hypoxic and hypercapnic respiratory failure was intubated placed on ventilatory support Patient was also hypotensive requiring vasopressors, no evidence of sepsis Past History Past Medical History: COPD, diabetes, hypertension, other (Morbid obesity) Past Surgical History: appendectomy, , hernia repair Social history: full code, other. denies: smoking, alcohol abuse, prescription drug abuse Family history: no significant family history Medications and Allergies Allergies Allergy/AdvReac Type Severity Reaction Status Date / Time prochlorperazine Allergy Unknown Verified 01/17/20 14:27 [From Compazine] Home Medications Medication Instructions Recorded Confirmed Last Taken Type Acetaminophen [Acetaminophen TAB] 1 tab PO Q4H PRN #15 tablet 07/03/19 01/18/20 Unknown Rx diphenhydrAMINE [Benadryl CAP] 25 mg PO Q8H PRN capsule 07/03/19 01/18/20 Unknown Rx Gabapentin 300 mg PO Q8H #90 capsule 01/22/20 Unknown Rx Lisinopril/Hydrochlorothiazide 1 tab PO QDAY 30 Days #30 tab 01/22/20 Unknown Rx [Zestoretic 20-25 mg] Potassium Chloride [K-Dur] 10 meq PO QDAY #30 tablet 01/22/20 Unknown Rx ProAir HFA Inhaler 2 inh INHALATION QID PRN #1 01/22/20 Unknown Rx Temazepam [Restoril] 15 mg PO QHS PRN #30 capsule 01/22/20 Unknown Rx amLODIPine 10 mg PO QDAY #30 tablet 01/22/20 Unknown Rx levoFLOXacin [Levaquin] 750 mg PO QDAY #5 tablet 01/22/20 Unknown Rx metFORMIN 1,000 mg PO BID 30 Days #60 01/22/20 Unknown Rx Active Meds: Active Medications Norepinephrine (Levophed Drip 4 Mg/Ns 250 Ml) 4 mg in 250 mls @ 7.5 mls/hr IV TITR RICHARD; Protocol Review of Systems ROS unobtainable: due to mental status Exam - Constitutional Vitals: Temp Pulse Resp BP Pulse Ox 92 F L 72 22 104/40 94 02/11/20 09:21 02/11/20 09:45 02/11/20 09:45 02/11/20 09:45 02/11/20 09:45 General appearance: Present: severe distress, obese (Morbidly obese), other (Intubated on ventilatory support) - EENT Eyes: Present: PERRL, EOM intact - Neck Neck: Present: supple, other (ET tube in place) - Respiratory Respiratory effort: normal Respiratory: bilateral: diminished, rhonchi, negative: rales, wheezing - Cardiovascular Rhythm: regular Heart Sounds: Present: S1 & S2 - Extremities Extremities: no ischemia Extremity abnormal: edema (Mild edema) - Abdominal General gastrointestinal: Present: soft, non-distended, normal bowel sounds - Integumentary Integumentary: Present: clear, warm - Musculoskeletal Musculoskeletal: other (Intubated on vent) - Psychiatric Psychiatric: other (Intubated on vent) - Neurologic Neurologic: other (Intubated on vent) HEART Score - HEART Score Troponin: Troponin T < 0.010 ng/mL (0.00-0.029) 02/11/20 06:29 Results - Labs CBC & Chem 7: 02/11/20 06:29 02/11/20 07:44 Labs: Abnormal lab results 02/11/20 02/11/20 02/11/20 Range/Units 06:29 06:29 06:38 RDW 16.7 H (13.2-15.2) % Eos % (Auto) 5.0 H (0.0-4.3) % Eos # 0.5 H (0.0-0.4) K/mm3 Seg Neutrophils % 72.6 H (40.0-70.0) % D-Dimer (0-234) ng/mlDDU ABG pH (7.350-7.450) pH Units ABG pO2 (80.0-90.0) mm Hg ABG HCO3 (20.0-26.0) mmol/L ABG Base Excess (-2.0-3.0) mmol/L Oxyhemoglobin (95.0-99.0) % Sodium 132 L (137-145) mmol/L Potassium 5.1 H (3.6-5.0) mmol/L Chloride 94.7 L (98-107) mmol/L BUN 23 H (7-17) mg/dL Creatinine 1.3 H (0.6-1.2) mg/dL Glucose 273 H (65-100) mg/dL POC Glucose (70-105) Lactic Acid 2.40 H* (0.7-2.0) mmol/L Calcium 8.2 L (8.4-10.2) mg/dL Lactate Dehydrogenase (91-180) units/L C-Reactive Protein (0.00-1.30) mg/dL Total Protein 6.2 L (6.3-8.2) g/dL Albumin 3.6 L (3.9-5) g/dL 02/11/20 02/11/20 02/11/20 Range/Units 06:38 06:39 07:30 RDW (13.2-15.2) % Eos % (Auto) (0.0-4.3) % Eos # (0.0-0.4) K/mm3 Seg Neutrophils % (40.0-70.0) % D-Dimer 300.90 H (0-234) ng/mlDDU ABG pH 6.945 L* (7.350-7.450) pH Units ABG pO2 199.6 H (80.0-90.0) mm Hg ABG HCO3 29.7 H (20.0-26.0) mmol/L ABG Base Excess -5.7 L (-2.0-3.0) mmol/L Oxyhemoglobin 93.8 L (95.0-99.0) % Sodium (137-145) mmol/L Potassium (3.6-5.0) mmol/L Chloride (98-107) mmol/L BUN (7-17) mg/dL Creatinine (0.6-1.2) mg/dL Glucose (65-100) mg/dL POC Glucose 248 H (70-105) Lactic Acid (0.7-2.0) mmol/L Calcium (8.4-10.2) mg/dL Lactate Dehydrogenase (91-180) units/L C-Reactive Protein (0.00-1.30) mg/dL Total Protein (6.3-8.2) g/dL Albumin (3.9-5) g/dL 02/11/20 Range/Units 07:44 RDW (13.2-15.2) % Eos % (Auto) (0.0-4.3) % Eos # (0.0-0.4) K/mm3 Seg Neutrophils % (40.0-70.0) % D-Dimer (0-234) ng/mlDDU ABG pH (7.350-7.450) pH Units ABG pO2 (80.0-90.0) mm Hg ABG HCO3 (20.0-26.0) mmol/L ABG Base Excess (-2.0-3.0) mmol/L Oxyhemoglobin (95.0-99.0) % Sodium (137-145) mmol/L Potassium (3.6-5.0) mmol/L Chloride (98-107) mmol/L BUN (7-17) mg/dL Creatinine (0.6-1.2) mg/dL Glucose 270 H (65-100) mg/dL POC Glucose (70-105) Lactic Acid (0.7-2.0) mmol/L Calcium (8.4-10.2) mg/dL Lactate Dehydrogenase 191 H (91-180) units/L C-Reactive Protein 1.50 H (0.00-1.30) mg/dL Total Protein (6.3-8.2) g/dL Albumin (3.9-5) g/dL Assessment and Plan --Acute metabolic encephalopathy/altered level of consciousness --Acute hypoxic hypercapnic respiratory failure; Requiring intubation, ventilatory support Nebulizers, IV steroids, IV antibiotic, inhalation steroids Pulmonary critical consult Wean as tolerated and extubate --Acute exacerbation of COPD; Nebulizers, IV steroids, antibiotics, inhalation steroids Ventilatory support --History of obesity hypoventilation syndrome/DAVID --Hypotension/shock Requiring pressors, titrate to systolic blood pressure more than 100 or map between 60-65 possible sepsis, however no fever no leukocytosis chest x-ray normal Follow cultures, possible aspiration chest x-ray negative Empiric antibiotics, ID consult if needed --PUI/high suspicion for COVID 19; Contact and droplet isolation, PPE protocols Boss PCR test requested, inflammatory markers ID consult if needed --Morbid obesity; BMI 46.1 Patient needs weight reduction when medically stable --DVT prophylaxis; Lovenox --Full CODE STATUS Monitor closely and adjust management as needed plan of care reviewed with the patient;s nurse We will try to get in touch with the family and update patient's condition Critical care time 60 minutes The high probability of a clinically significant, sudden or life threatening deterioration of the [Respiratory, circulatory and metabolic] system(s) required my full and direct attention, intervention and personal management. The aggregate critical care time was [60] minutes. This time is in addition to time spent ,performing reported procedures but includes the following: [x] Data Review and interpretation [x] Patient assessment and monitoring of vital signs [x] Documentation [x] Medication orders and management Patient is stable to be transferred out of ICU to surgical floor
[2020-02-11] MEDS ORDERED: VANCOMYCIN PHARMACY TO DOSE IV SCH (11:00)
[2020-02-11 11:50] LABS: ABG Base Excess -5.3 mmol/L (-2.0-3.0); ABG HCO3 22.3 mmol/L (20.0-26.0); ABG Methemoglobin 0.6 % (0.0-1.5); ABG Oxygen Saturation 98.9 % (95.0-99.0); ABG PCO2 52.3 mm Hg; ABG PH 7.248 pH Units (7.350-7.450)
[2020-02-11] MEDS ORDERED: INSULIN LISPRO 100 UNIT/ML SUB-Q ONE (12:00)
[2020-02-11] MEDS ORDERED: IPRATROPIUM/ALBUTEROL SULFATE 3 ML AMPUL.NEB IH SCH (12:00)
[2020-02-11] MEDS ORDERED: ALBUTEROL 2.5 MG/3 ML NEBU IH ONE ×2 (12:47→13:45)
--- NOTE | 2020-02-11 12:58 | Consultation ---
History of Present Illness - Reason for Consult Consult date: 02/11/20 - History of Present Illness 59-year-old female past medical history diabetes, hypertension, morbid obesity sent to the hospital altered mental status. The history is obtained from the chart. She was recently discharged the hospital approximately 2 weeks prior, where she tested negative for COVID-19. However family did not believe the negative test, not so she was retested a COVID-19 but they are still pending results. She was found to be hypoxic at home, and she was unable to be aroused by by her daughter, and/EMS was called. This low temperature to 92 degrees with a white count of 9.7. Repeat COVID-19 testing negative. Normal procalcitonin. No cultures available for review. Imaging personally reviewed: Chest x-ray: Congestive changes Past History Past Medical History: diabetes Past Surgical History: No surgical history Social history: no significant social history Family history: no significant family history Medications and Allergies Allergies Allergy/AdvReac Type Severity Reaction Status Date / Time prochlorperazine Allergy Unknown Verified 01/17/20 14:27 [From Compazine] Home Medications Medication Instructions Recorded Confirmed Last Taken Type Acetaminophen [Acetaminophen TAB] 1 tab PO Q4H PRN #15 tablet 07/03/19 01/18/20 Unknown Rx diphenhydrAMINE [Benadryl CAP] 25 mg PO Q8H PRN capsule 07/03/19 01/18/20 Unknown Rx Gabapentin 300 mg PO Q8H #90 capsule 01/22/20 Unknown Rx Lisinopril/Hydrochlorothiazide 1 tab PO QDAY 30 Days #30 tab 01/22/20 Unknown Rx [Zestoretic 20-25 mg] Potassium Chloride [K-Dur] 10 meq PO QDAY #30 tablet 01/22/20 Unknown Rx ProAir HFA Inhaler 2 inh INHALATION QID PRN #1 01/22/20 Unknown Rx Temazepam [Restoril] 15 mg PO QHS PRN #30 capsule 01/22/20 Unknown Rx amLODIPine 10 mg PO QDAY #30 tablet 01/22/20 Unknown Rx levoFLOXacin [Levaquin] 750 mg PO QDAY #5 tablet 01/22/20 Unknown Rx metFORMIN 1,000 mg PO BID 30 Days #60 01/22/20 Unknown Rx Active Meds: Active Medications Albuterol (Proventil) 2.5 mg IH PRN ONE Stop: 02/11/20 13:46 Budesonide (Pulmicort) 0.5 mg IH Q12HRT RICHARD Enoxaparin Sodium (Enoxaparin) 40 mg SUB-Q QDAY@2200 RICHARD Norepinephrine (Levophed Drip 4 Mg/Ns 250 Ml) 4 mg in 250 mls @ 7.5 mls/hr IV TITR RICHARD; Protocol Last Titration: 02/11/20 10:30 Dose: 12 mcg/min, 45 mls/hr Documented by: Cefepime HCl (Cefepime/Ns 2 Gm/100 Ml) 2 gm in 100 mls @ 200 mls/hr IV Q12HR RICHARD; Protocol Methylprednisolone Sodium Succinate (Solu-Medrol) 80 mg IV Q8HR RICHARD Physical Examination - Physical Exam Narrative exam: Physical Exam: Constitutional: Intubated, sedated Head, Ears, Nose: Normocephalic, atraumatic. External ears, nose normal Eyes: Conjunctivae/corneas clear. No icterus. No ptosis. Neck: Intubated Oral: Intubated Cardiovascular: S1, S2 normal. Respiratory: Good air entry, clear to auscultation bilaterally GI: Soft, non-tender; bowel sounds normal. No peritoneal signs. Musculoskeletal: No pedal edema, no cyanosis. Skin: No rash or abscess Hem/Lymphatic: No palpable cervical or supraclavicular nodes. No lymphangitis Psych: Sedated Neurological: Sedated - Constitutional Vitals: Vital Signs Temp Pulse Resp BP Pulse Ox 92 F L 83 18 120/49 98 02/11/20 09:21 02/11/20 12:36 02/11/20 10:52 02/11/20 12:36 02/11/20 12:36 Temperature -Last 24 Hours Temperature 92 F Results - Labs CBC & Chem 7: 02/11/20 06:29 02/11/20 07:44 Labs: Abnormal lab results 02/11/20 02/11/20 02/11/20 Range/Units 06:29 06:29 06:38 RDW 16.7 H (13.2-15.2) % Eos % (Auto) 5.0 H (0.0-4.3) % Eos # 0.5 H (0.0-0.4) K/mm3 Seg Neutrophils % 72.6 H (40.0-70.0) % D-Dimer (0-234) ng/mlDDU ABG pH (7.350-7.450) pH Units ABG pO2 (80.0-90.0) mm Hg ABG HCO3 (20.0-26.0) mmol/L ABG Base Excess (-2.0-3.0) mmol/L Oxyhemoglobin (95.0-99.0) % Sodium 132 L (137-145) mmol/L Potassium 5.1 H (3.6-5.0) mmol/L Chloride 94.7 L (98-107) mmol/L BUN 23 H (7-17) mg/dL Creatinine 1.3 H (0.6-1.2) mg/dL Glucose 273 H (65-100) mg/dL POC Glucose (70-105) Lactic Acid 2.40 H* (0.7-2.0) mmol/L Calcium 8.2 L (8.4-10.2) mg/dL Lactate Dehydrogenase (91-180) units/L C-Reactive Protein (0.00-1.30) mg/dL Total Protein 6.2 L (6.3-8.2) g/dL Albumin 3.6 L (3.9-5) g/dL 02/11/20 02/11/20 02/11/20 Range/Units 06:38 06:39 07:30 RDW (13.2-15.2) % Eos % (Auto) (0.0-4.3) % Eos # (0.0-0.4) K/mm3 Seg Neutrophils % (40.0-70.0) % D-Dimer 300.90 H (0-234) ng/mlDDU ABG pH 6.945 L* (7.350-7.450) pH Units ABG pO2 199.6 H (80.0-90.0) mm Hg ABG HCO3 29.7 H (20.0-26.0) mmol/L ABG Base Excess -5.7 L (-2.0-3.0) mmol/L Oxyhemoglobin 93.8 L (95.0-99.0) % Sodium (137-145) mmol/L Potassium (3.6-5.0) mmol/L Chloride (98-107) mmol/L BUN (7-17) mg/dL Creatinine (0.6-1.2) mg/dL Glucose (65-100) mg/dL POC Glucose 248 H (70-105) Lactic Acid (0.7-2.0) mmol/L Calcium (8.4-10.2) mg/dL Lactate Dehydrogenase (91-180) units/L C-Reactive Protein (0.00-1.30) mg/dL Total Protein (6.3-8.2) g/dL Albumin (3.9-5) g/dL 02/11/20 02/11/20 Range/Units 07:44 11:40 RDW (13.2-15.2) % Eos % (Auto) (0.0-4.3) % Eos # (0.0-0.4) K/mm3 Seg Neutrophils % (40.0-70.0) % D-Dimer (0-234) ng/mlDDU ABG pH 7.248 L (7.350-7.450) pH Units ABG pO2 170.0 H (80.0-90.0) mm Hg ABG HCO3 (20.0-26.0) mmol/L ABG Base Excess -5.3 L (-2.0-3.0) mmol/L Oxyhemoglobin (95.0-99.0) % Sodium (137-145) mmol/L Potassium (3.6-5.0) mmol/L Chloride (98-107) mmol/L BUN (7-17) mg/dL Creatinine (0.6-1.2) mg/dL Glucose 270 H (65-100) mg/dL POC Glucose (70-105) Lactic Acid (0.7-2.0) mmol/L Calcium (8.4-10.2) mg/dL Lactate Dehydrogenase 191 H (91-180) units/L C-Reactive Protein 1.50 H (0.00-1.30) mg/dL Total Protein (6.3-8.2) g/dL Albumin (3.9-5) g/dL Assessment and Plan Cultures: COVID-19 testing negative A/P: 59-year-old female past medical history diabetes, hypertension, morbid obesity presented with acute hypoxic respiratory failure. #Acute hypoxemic respiratory failure: Unclear etiology given negative COVID-19 test again. Continue empiric cefepime for now, though no acute infection seen on chest x-ray and normal procalcitonin. #Diabetes: tight glycemic control for best outcomes. #CKD: Renally dose antibiotics Recs: -Ordered blood cultures -Continue cefepime for now Dr. Mitchell taking over Thursday. Thank you for the consult, we will continue to follow. Virginia Miranda MD [facility] M: [phone] O: [phone] F: [phone]
[2020-02-11] MEDS ORDERED: NORepinephrine/NS 4 MG-250 ML 4 MG/250 ML BAG IV ONE ×2 (13:36→16:52)
[2020-02-11] MEDS: methylPREDNISolone Sod Succinate 125 MG/2 ML INJ IV SCH (15:00)
[2020-02-11] MEDS ORDERED: methylPREDNISolone Sod Succinate 40 MG/1 ML INJ ONE (17:04)
[2020-02-11] MEDS: BUDESONIDE 0.5 MG/2 ML NEBU IH SCH (21:17)
[2020-02-11 21:50] LABS: ABG Base Excess -0.8 mmol/L (-2.0-3.0); ABG HCO3 25.6 mmol/L (20.0-26.0); ABG Methemoglobin 0.6 % (0.0-1.5); ABG Oxygen Saturation 97.7 % (95.0-99.0); ABG PCO2 49.2 mm Hg; ABG PH 7.333 pH Units (7.350-7.450); ABG PO2 110.3 mm Hg (80.0-90.0)
[2020-02-12] MEDS: methylPREDNISolone Sod Succinate 125 MG/2 ML INJ IV SCH ×2 (00:01→10:19)
[2020-02-12] MEDS: ENOXAPARIN 40 MG/0.4 ML INJ SUB-Q SCH ×2 (00:01→21:21)
[2020-02-12] MEDS: CEFEPIME/NS 2 GM/100 ML 2 GM/100 ML BAG IV SCH ×3 (00:02→21:16)
[2020-02-12] MEDS: BUDESONIDE 0.5 MG/2 ML NEBU IH SCH ×2 (08:22→19:07)
[2020-02-12 08:42] LABS: Hematocrit 39.5 % (30.3-42.9); Hemoglobin 12.8 gm/dl (10.1-14.3); Mean Corpuscular HGB Conc 32 % (30-34); Mean Corpuscular Volume 87 fl (79-97); Platelet Count 310 K/mm3 (140-440); Red Blood Count 4.54 M/mm3 (3.65-5.03); Red Cell Distribution Width 16.6 % (13.2-15.2)
[2020-02-12 08:50] LABS: Alanine Aminotransferase 17 units/L (7-56); Albumin 3.9 g/dL (3.9-5); Blood Urea Nitrogen 11 mg/dL (7-17); Calcium 9.4 mg/dL (8.4-10.2); Hemolysis Index 11
[2020-02-12 08:52] LABS: BUN/Creatinine Ratio 16
[2020-02-12] MEDS ORDERED: FUROSEMIDE 40 MG/4 ML INJ IV ONE (09:16)
--- NOTE | 2020-02-12 09:38 | Consultation ---
History of Present Illness Consult date: 02/12/20 Requesting physician: PANDA CATES Reason for consult: hypoxemia, other (hypercapnic respiratory failure) History of present illness: 59 y/o obese female known to me from one of her last hospital stays. She desatted when I attempted to bronch on her during the last hospital stay. She was found hypoxemic and barely responsive. CO2 was elevated and she was promptly intubated. Throughout the night she woke up and we extubated her. This am she is awake and alert, on oxygen. Hypertensive. Past History Past Medical History: COPD, diabetes, hypertension, other (Morbid obesity) Past Surgical History: appendectomy, , hernia repair Social history: full code, other. denies: smoking, alcohol abuse, prescription drug abuse Family history: no significant family history Medications and Allergies Allergies Allergy/AdvReac Type Severity Reaction Status Date / Time prochlorperazine Allergy Unknown Verified 01/17/20 14:27 [From Compazine] Home Medications Medication Instructions Recorded Confirmed Last Taken Type Acetaminophen [Acetaminophen TAB] 1 tab PO Q4H PRN #15 tablet 07/03/19 01/18/20 Unknown Rx diphenhydrAMINE [Benadryl CAP] 25 mg PO Q8H PRN capsule 07/03/19 01/18/20 Unknown Rx Gabapentin 300 mg PO Q8H #90 capsule 01/22/20 Unknown Rx Lisinopril/Hydrochlorothiazide 1 tab PO QDAY 30 Days #30 tab 01/22/20 Unknown Rx [Zestoretic 20-25 mg] Potassium Chloride [K-Dur] 10 meq PO QDAY #30 tablet 01/22/20 Unknown Rx ProAir HFA Inhaler 2 inh INHALATION QID PRN #1 01/22/20 Unknown Rx Temazepam [Restoril] 15 mg PO QHS PRN #30 capsule 01/22/20 Unknown Rx amLODIPine 10 mg PO QDAY #30 tablet 01/22/20 Unknown Rx levoFLOXacin [Levaquin] 750 mg PO QDAY #5 tablet 01/22/20 Unknown Rx metFORMIN 1,000 mg PO BID 30 Days #60 01/22/20 Unknown Rx Active Meds: Active Medications Amlodipine Besylate (Amlodipine) 5 mg PO QDAY [facility] Budesonide (Pulmicort) 0.5 mg IH Q12HRT [facility] Last Admin: 02/12/20 08:22 Dose: 0.5 mg Documented by: Enoxaparin Sodium (Enoxaparin) 40 mg SUB-Q QDAY@2200 RICHARD Last Admin: 02/12/20 00:01 Dose: 40 mg Documented by: Cefepime HCl (Cefepime/Ns 2 Gm/100 Ml) 2 gm in 100 mls @ 200 mls/hr IV Q12HR [facility]; Protocol Last Admin: 02/12/20 00:02 Dose: 200 mls/hr Documented by: Vancomycin HCl (Vancomycin/Ns 1 Gm/250 Ml) 1 gm in 250 mls @ 166.667 mls/hr IV Q12H [facility] Last Admin: 02/12/20 00:00 Dose: 166.667 mls/hr Documented by: Review of Systems All systems: negative Physical Examination Vital signs: Vital Signs Pulse Ox 97 02/11/20 05:48 General appearance: no acute distress, alert, other (obese) Eyes: non-icteric ENT: oropharynx moist Neck: supple, other (large in circumference) Effort: mildly labored Ascultation: Bilateral: diminished breath sounds Percussion: Bilateral: not dull Tactile fremitus: Bilateral: normal Cardiovascular: regular rate and rhythm Gastrointestinal: normoactive bowel sounds, soft Results - Laboratory Findings CBC and BMP: 02/12/20 07:08 02/12/20 07:08 ABG ABG pH 7.333 pH Units (7.350-7.450) L 02/11/20 21:40 ABG pCO2 49.2 mm Hg 02/11/20 21:40 ABG pO2 110.3 mm Hg (80.0-90.0) H 02/11/20 21:40 ABG O2 Saturation 97.7 % (95.0-99.0) 02/11/20 21:40 PT/INR, D-dimer PT 12.7 Sec. (12.2-14.9) 02/11/20 06:38 INR 0.94 (0.87-1.13) 02/11/20 06:38 D-Dimer 300.90 ng/mlDDU (0-234) H 02/11/20 06:38 Abnormal lab findings: Abnormal Labs 02/11/20 02/11/20 02/11/20 06:29 06:29 06:38 WBC RDW 16.7 H Eos % (Auto) 5.0 H Eos # 0.5 H Seg Neutrophils % 72.6 H D-Dimer ABG pH ABG pO2 ABG HCO3 ABG Base Excess Oxyhemoglobin Sodium 132 L Potassium 5.1 H Chloride 94.7 L BUN 23 H Creatinine 1.3 H Glucose 273 H POC Glucose Lactic Acid 2.40 H* Calcium 8.2 L Lactate Dehydrogenase C-Reactive Protein Total Protein 6.2 L Albumin 3.6 L 02/11/20 02/11/20 02/11/20 06:38 06:39 07:30 WBC RDW Eos % (Auto) Eos # Seg Neutrophils % D-Dimer 300.90 H ABG pH 6.945 L* ABG pO2 199.6 H ABG HCO3 29.7 H ABG Base Excess -5.7 L Oxyhemoglobin 93.8 L Sodium Potassium Chloride BUN Creatinine Glucose POC Glucose 248 H Lactic Acid Calcium Lactate Dehydrogenase C-Reactive Protein Total Protein Albumin 02/11/20 02/11/20 02/11/20 07:44 11:40 21:40 WBC RDW Eos % (Auto) Eos # Seg Neutrophils % D-Dimer ABG pH 7.248 L 7.333 L ABG pO2 170.0 H 110.3 H ABG HCO3 ABG Base Excess -5.3 L Oxyhemoglobin Sodium Potassium Chloride BUN Creatinine Glucose 270 H POC Glucose Lactic Acid Calcium Lactate Dehydrogenase 191 H C-Reactive Protein 1.50 H Total Protein Albumin 02/12/20 02/12/20 02/12/20 06:04 07:08 07:08 WBC 11.9 H RDW 16.6 H Eos % (Auto) Eos # Seg Neutrophils % D-Dimer ABG pH ABG pO2 ABG HCO3 ABG Base Excess Oxyhemoglobin Sodium Potassium 5.1 H Chloride BUN Creatinine Glucose 169 H POC Glucose 152 H Lactic Acid Calcium Lactate Dehydrogenase C-Reactive Protein Total Protein Albumin - Diagnostic Findings Chest x-ray: image reviewed (cardiomegaly with pulmonary vascular congestion) Assessment and Plan 59 y/o female with acute hypercapnic respiratory failure, now extubated. 1. Bipap therapy at night 2. Needs trilogy for home, but will need CM help to decipher Insurance. (per patient has a hospitalization plan via [employer]) 3. Lasix once now and started on Amlodipine. 4. Transfer to the floor.
[2020-02-12 09:59] LABS: Basophils % (Manual) 0 % (0.0-1.8); Eosinophils % (Manual) 0 % (0.0-4.3); Monocytes % (Manual) 0 % (0.0-7.3); Total Cells Counted 100
[2020-02-12 10:01] LABS: Hypochromasia Few; Platelet Estimate Consistent w Auto; Target Cells Few
[2020-02-12] MEDS: VANCOMYCIN/NS 1 GM/250 ML 1 GM/250 ML BAG IV SCH ×3 (10:06→21:22)
[2020-02-12] MEDS: amLODIPine 5 MG TAB PO SCH (10:07)
--- NOTE | 2020-02-12 16:46 | Progress Note ---
Assessment and Plan Assessment and plan: --Acute metabolic encephalopathy/altered level of consciousness Resolved back to baseline alert awake oriented --Acute hypoxic hypercapnic respiratory failure; intubated on AM, extubated 02/11/2020 p.m. Nebulizers, IV steroids, IV antibiotic, inhalation steroids Pulmonary critical following Okay to transfer to the floor --Acute exacerbation of COPD; Nebulizers, IV steroids, antibiotics, inhalation steroids --History of obesity hypoventilation syndrome/DAVID Patient needs outpatient sleep studies for BiPAP at night --Hypotension/shock ; present on admission Requiring pressors, resolved, blood pressures reasonable level --PUI/high suspicion for COVID 19; COVID test negative Isolation discontinued --Morbid obesity; BMI 46.1 Patient needs weight reduction when medically stable --DVT prophylaxis; Lovenox --Full CODE STATUS Monitor closely and adjust management as needed plan of care reviewed with the patient;s nurse Patient is stable to be transferred out of ICU to telemetry Possible discharge in 1 to 2 days if stable Critical care time 60 minutes The high probability of a clinically significant, sudden or life threatening deterioration of the [Respiratory, circulatory and metabolic] system(s) required my full and direct attention, intervention and personal management. The aggregate critical care time was [34] minutes. This time is in addition to time spent ,performing reported procedures but includes the following: [x] Data Review and interpretation [x] Patient assessment and monitoring of vital signs [x] Documentation [x] Medication orders and management Patient is stable to be transferred out of ICU to telemetry History Interval history: Patient was admitted with acute hypoxic hypercapnic respiratory failure requiring intubation Hypotension requiring pressors and high suspicion for COVID-19/PUI Patient was extubated yesterday today is comfortable on nasal cannula Boss PCR test negative, blood pressures reasonable level Patient seen and examined in ICU this morning Patient is alert and awake cheerful responding appropriately No new complaints Vital signs reviewed Hospitalist Physical - Constitutional Vitals: Temp Pulse Resp BP Pulse Ox 99.0 F 102 H 18 187/93 96 02/12/20 04:00 02/12/20 12:20 02/12/20 12:20 02/12/20 12:20 02/12/20 12:20 General appearance: Present: no acute distress, well-nourished, obese (Morbidly obese), other (Extubated) - EENT Eyes: Present: PERRL, EOM intact - Neck Neck: Present: supple, normal ROM - Respiratory Respiratory effort: normal Respiratory: bilateral: diminished, negative: rales, rhonchi, wheezing - Cardiovascular Rhythm: regular Heart Sounds: Present: S1 & S2 - Extremities Extremities: no ischemia, No edema - Abdominal General gastrointestinal: soft, non-tender, non-distended, normal bowel sounds - Integumentary Integumentary: Present: clear, warm - Psychiatric Psychiatric: appropriate mood/affect, cooperative - Neurologic Neurologic: moves all extremities HEART Score - HEART Score Troponin: Troponin T < 0.010 ng/mL (0.00-0.029) 02/11/20 06:29 Results - Labs CBC & Chem 7: 02/12/20 07:08 02/12/20 07:08 Labs: Laboratory Last Values WBC 11.9 K/mm3 (4.5-11.0) H 02/12/20 07:08 RBC 4.54 M/mm3 (3.65-5.03) 02/12/20 07:08 Hgb 12.8 gm/dl (10.1-14.3) 02/12/20 07:08 Hct 39.5 % (30.3-42.9) 02/12/20 07:08 MCV 87 fl (79-97) 02/12/20 07:08 MCH 28 pg (28-32) 02/12/20 07:08 MCHC 32 % (30-34) 02/12/20 07:08 RDW 16.6 % (13.2-15.2) H 02/12/20 07:08 Plt Count 310 K/mm3 (140-440) 02/12/20 07:08 Lymph % (Auto) 14.4 % (13.4-35.0) 02/11/20 06:29 [place] % (Auto) 7.3 % (0.0-7.3) 02/11/20 06:29 Eos % (Auto) 5.0 % (0.0-4.3) H 02/11/20 06:29 Baso % (Auto) 0.7 % (0.0-1.8) 02/11/20 06:29 Lymph # 1.4 K/mm3 (1.2-5.4) 02/11/20 06:29 [place] # 0.7 K/mm3 (0.0-0.8) 02/11/20 06:29 Eos # 0.5 K/mm3 (0.0-0.4) H 02/11/20 06:29 Baso # 0.1 K/mm3 (0.0-0.1) 02/11/20 06:29 Add Manual Diff Complete 02/12/20 07:08 Total Counted 100 02/12/20 07:08 Seg Neutrophils % [place] 02/12/20 07:08 Seg Neuts % (Manual) 95.0 % (40.0-70.0) H 02/12/20 07:08 Band Neutrophils % 0 % 02/12/20 07:08 Lymphocytes % (Manual) 4.0 % (13.4-35.0) L 02/12/20 07:08 Reactive Lymphs % (Man) 0 % 02/12/20 07:08 Monocytes % (Manual) 0 % (0.0-7.3) 02/12/20 07:08 Eosinophils % (Manual) 0 % (0.0-4.3) 02/12/20 07:08 Basophils % (Manual) 0 % (0.0-1.8) 02/12/20 07:08 Metamyelocytes % 1.0 % 02/12/20 07:08 Myelocytes % 0 % 02/12/20 07:08 Promyelocytes % 0 % 02/12/20 07:08 Blast Cells % 0 % 02/12/20 07:08 Nucleated RBC % Not Reportable 02/12/20 07:08 Seg Neutrophils # 7.0 K/mm3 (1.8-7.7) 02/11/20 06:29 Seg Neutrophils # Man 11.3 K/mm3 (1.8-7.7) H 02/12/20 07:08 Band Neutrophils # 0.0 K/mm3 02/12/20 07:08 Lymphocytes # (Manual) 0.5 K/mm3 (1.2-5.4) L 02/12/20 07:08 Abs React Lymphs (Man) 0.0 K/mm3 02/12/20 07:08 Monocytes # (Manual) 0.0 K/mm3 (0.0-0.8) 02/12/20 07:08 Eosinophils # (Manual) 0.0 K/mm3 (0.0-0.4) 02/12/20 07:08 Basophils # (Manual) 0.0 K/mm3 (0.0-0.1) 02/12/20 07:08 Metamyelocytes # 0.1 K/mm3 02/12/20 07:08 Myelocytes # 0.0 K/mm3 02/12/20 07:08 Promyelocytes # 0.0 K/mm3 02/12/20 07:08 Blast Cells # 0.0 K/mm3 02/12/20 07:08 WBC Morphology Not Reportable 02/12/20 07:08 WBC Morphology TNR 02/12/20 07:08 Hypersegmented Neuts Not Reportable 02/12/20 07:08 Hyposegmented Neuts Not Reportable 02/12/20 07:08 Hypogranular Neuts Not Reportable 02/12/20 07:08 Smudge Cells Not Reportable 02/12/20 07:08 Toxic Granulation Not Reportable 02/12/20 07:08 Toxic Vacuolation Not Reportable 02/12/20 07:08 Dohle Bodies Not Reportable 02/12/20 07:08 Pelger-Huet Anomaly Not Reportable 02/12/20 07:08 Leola Rods Not Reportable 02/12/20 07:08 Platelet Estimate Consistent w auto 02/12/20 07:08 Clumped Platelets Not Reportable 02/12/20 07:08 Plt Clumps, EDTA Not Reportable 02/12/20 07:08 Large Platelets Not Reportable 02/12/20 07:08 Giant Platelets Not Reportable 02/12/20 07:08 Platelet Satelliting Not Reportable 02/12/20 07:08 Plt Morphology Comment Not Reportable 02/12/20 07:08 RBC Morphology Not Reportable 02/12/20 07:08 Dimorphic RBCs Not Reportable 02/12/20 07:08 Polychromasia Not Reportable 02/12/20 07:08 Hypochromasia Few 02/12/20 07:08 Poikilocytosis Not Reportable 02/12/20 07:08 Anisocytosis Not Reportable 02/12/20 07:08 Microcytosis Not Reportable 02/12/20 07:08 Macrocytosis Not Reportable 02/12/20 07:08 Spherocytes Not Reportable 02/12/20 07:08 Pappenheimer Bodies Not Reportable 02/12/20 07:08 Sickle Cells Not Reportable 02/12/20 07:08 Target Cells Few 02/12/20 07:08 Tear Drop Cells Not Reportable 02/12/20 07:08 Ovalocytes Not Reportable 02/12/20 07:08 Helmet Cells Not Reportable 02/12/20 07:08 [place] Bodies Not Reportable 02/12/20 07:08 [place] Rings Not Reportable 02/12/20 07:08 [place] Cells Not Reportable 02/12/20 07:08 Bite Cells Not Reportable 02/12/20 07:08 Crenated Cell Not Reportable 02/12/20 07:08 Elliptocytes Not Reportable 02/12/20 07:08 Acanthocytes (Spur) Not Reportable 02/12/20 07:08 Rouleaux Not Reportable 02/12/20 07:08 Hemoglobin C Crystals Not Reportable 02/12/20 07:08 Schistocytes Not Reportable 02/12/20 07:08 Malaria parasites Not Reportable 02/12/20 07:08 Mike Bodies Not Reportable 02/12/20 07:08 Hem Pathologist Commnt No 02/12/20 07:08 PT 12.7 Sec. (12.2-14.9) 02/11/20 06:38 INR 0.94 (0.87-1.13) 02/11/20 06:38 APTT 29.7 Sec. (24.2-36.6) 02/11/20 06:38 D-Dimer 300.90 ng/mlDDU (0-234) H 02/11/20 06:38 ABG pH 7.333 pH Units (7.350-7.450) L 02/11/20 21:40 ABG pCO2 49.2 mm Hg 02/11/20 21:40 ABG pO2 110.3 mm Hg (80.0-90.0) H 02/11/20 21:40 ABG HCO3 25.6 mmol/L (20.0-26.0) 02/11/20 21:40 ABG O2 Saturation 97.7 % (95.0-99.0) 02/11/20 21:40 ABG O2 Content 16.9 (0.0-44) 02/11/20 21:40 ABG Base Excess -0.8 mmol/L (-2.0-3.0) 02/11/20 21:40 ABG Hemoglobin 12.4 gm/dl (12.0-16.0) 02/11/20 21:40 ABG Carboxyhemoglobin 1.2 % (0.0-5.0) 02/11/20 21:40 ABG Methemoglobin 0.6 % (0.0-1.5) 02/11/20 21:40 Oxyhemoglobin 96.0 % (95.0-99.0) 02/11/20 21:40 FiO2 60 % 02/11/20 21:40 Sodium 140 mmol/L (137-145) D 02/12/20 07:08 Potassium 5.1 mmol/L (3.6-5.0) H 02/12/20 07:08 Chloride 100.1 mmol/L (98-107) 02/12/20 07:08 Carbon Dioxide 29 mmol/L (22-30) 02/12/20 07:08 Anion Gap 16 mmol/L 02/12/20 07:08 BUN 11 mg/dL (7-17) 02/12/20 07:08 Creatinine 0.7 mg/dL (0.6-1.2) 02/12/20 07:08 Estimated GFR > 60 ml/min 02/12/20 07:08 BUN/Creatinine Ratio 16 % 02/12/20 07:08 Glucose 169 mg/dL (65-100) H 02/12/20 07:08 POC Glucose 253 (70-105) H 02/12/20 11:44 Lactic Acid 1.50 mmol/L (0.7-2.0) 02/11/20 09:50 Calcium 9.4 mg/dL (8.4-10.2) 02/12/20 07:08 Phosphorus 3.90 mg/dL (2.5-4.5) 02/12/20 07:08 Magnesium 2.30 mg/dL (1.7-2.3) 02/12/20 07:08 Ferritin 150.5 ng/mL (10.0-200.0) 02/11/20 07:44 Total Bilirubin 0.30 mg/dL (0.1-1.2) 02/12/20 07:08 AST 18 units/L (5-40) 02/12/20 07:08 ALT 17 units/L (7-56) 02/12/20 07:08 Alkaline Phosphatase 126 units/L (35-129) 02/12/20 07:08 Ammonia 56.0 umol/L (25-60) 02/11/20 06:29 Lactate Dehydrogenase 191 units/L (91-180) H 02/11/20 07:44 Troponin T < 0.010 ng/mL (0.00-0.029) 02/11/20 06:29 C-Reactive Protein 1.50 mg/dL (0.00-1.30) H 02/11/20 07:44 NT-Pro-B Natriuret Pep 101.8 pg/mL (0-900) 02/11/20 06:38 Total Protein 6.9 g/dL (6.3-8.2) 02/12/20 07:08 Albumin 3.9 g/dL (3.9-5) 02/12/20 07:08 Albumin/Globulin Ratio 1.3 % 02/12/20 07:08 Procalcitonin < 0.05 ng/mL (<0.15) 02/11/20 07:44 TSH 1.880 mlU/mL (0.270-4.200) 02/11/20 07:44 Urine Color Yellow (Yellow) 02/11/20 Unknown Urine Turbidity Cloudy (Clear) 02/11/20 Unknown Urine pH 5.0 (5.0-7.0) 02/11/20 Unknown Ur Specific [place] 1.015 (1.003-1.030) 02/11/20 Unknown Urine Protein 100 mg/dl mg/dL (Negative) 02/11/20 Unknown Urine Glucose (UA) Neg mg/dL (Negative) 02/11/20 Unknown Urine Ketones Neg mg/dL (Negative) 02/11/20 Unknown Urine Blood Sm (Negative) 02/11/20 Unknown Urine Nitrite Neg (Negative) 02/11/20 Unknown Urine Bilirubin Neg (Negative) 02/11/20 Unknown Urine Urobilinogen 2.0 mg/dL (<2.0) 02/11/20 Unknown Ur Leukocyte Esterase Neg (Negative) 02/11/20 Unknown Urine WBC (Auto) 3.0 /HPF (0.0-6.0) 02/11/20 Unknown Urine RBC (Auto) 1.0 /HPF (0.0-6.0) 02/11/20 Unknown U Epithel Cells (Auto) 3.0 /HPF (0-13.0) 02/11/20 Unknown Urine Bacteria (Auto) 1+ /HPF (Negative) 02/11/20 Unknown Urine Mucus Few /HPF 02/11/20 Unknown Urine Opiates Screen Negative 02/11/20 Unknown Urine Methadone Screen Negative 02/11/20 Unknown Ur Barbiturates Screen Negative 02/11/20 Unknown Ur Phencyclidine Scrn Negative 02/11/20 Unknown Ur Amphetamines Screen Negative 02/11/20 Unknown U Benzodiazepines Scrn Positive 02/11/20 Unknown Urine Cocaine Screen Negative 02/11/20 Unknown U Marijuana (THC) Screen Positive 02/11/20 Unknown Drugs of Abuse Note Disclamer 02/11/20 Unknown Plasma/Serum Alcohol < 0.01 % (0-0.07) 02/11/20 06:29 Coronavirus (PCR) Negative (Negative) 02/11/20 Unknown Microbiology: Microbiology 02/11/20 14:40 Peripheral/Venous Blood Culture - Preliminary NO GROWTH AFTER 24 HOURS 02/11/20 14:40 Peripheral/Venous Blood Culture - Preliminary NO GROWTH AFTER 24 HOURS 02/11/20 Unknown Peripheral/Venous Blood Culture - Preliminary NO GROWTH AFTER 24 HOURS 02/11/20 Unknown Peripheral/Venous Blood Culture - Preliminary NO GROWTH AFTER 24 HOURS Segura/IV: Voiding Method Indwelling Catheter IV Catheter Type [left forearm Peripheral IV ] Active Medications - Current Medications Current Medications: Generic Name Dose Route Start Last Admin Trade Name Freq PRN Reason Stop Dose Admin Amlodipine Besylate 5 mg 02/12/20 10:00 02/12/20 10:07 Amlodipine PO 5 mg QDAY RICHARD Administration Budesonide 0.5 mg 02/11/20 20:00 02/12/20 08:22 Pulmicort IH 0.5 mg Q12HRT RICHARD Administration Enoxaparin Sodium 40 mg 02/11/20 22:00 02/12/20 00:01 Enoxaparin SUB-Q 40 mg QDAY@2200 RICHARD Administration Cefepime HCl 2 gm in 100 mls @ 200 mls/hr 02/11/20 22:00 02/12/20 10:07 Cefepime/Ns 2 Gm/100 Ml IV 200 mls/hr Q12HR RICHARD Administration Protocol Vancomycin HCl 1 gm in 250 mls @ 166.667 mls/hr 02/11/20 21:00 02/12/20 10:06 Vancomycin/Ns 1 Gm/250 Ml IV 166.667 mls/hr Q12H RICHARD Administration
[2020-02-12] MEDS ORDERED: diphenhydrAMINE 25 MG CAP PO ONE (23:30)
[2020-02-12] MEDS: LISINOPRIL 20 MG TAB PO SCH (23:41)
[2020-02-12] MEDS: INSULIN LISPRO 100 UNIT/ML SUB-Q SCH (23:41)
[2020-02-13] MEDS: BUDESONIDE 0.5 MG/2 ML NEBU IH SCH ×2 (08:02→20:06)
[2020-02-13] MEDS: INSULIN LISPRO 100 UNIT/ML SUB-Q SCH ×2 (08:59→12:26)
[2020-02-13] MEDS: amLODIPine 5 MG TAB PO SCH (09:00)
[2020-02-13] MEDS: CEFEPIME/NS 2 GM/100 ML 2 GM/100 ML BAG IV SCH (09:00)
[2020-02-13] MEDS: LISINOPRIL 20 MG TAB PO SCH (09:01)
--- NOTE | 2020-02-13 10:42 | Progress Note ---
Assessment and Plan Assessment and plan: --Acute metabolic encephalopathy/altered level of consciousness Resolved back to baseline alert awake oriented --Acute hypoxic hypercapnic respiratory failure; intubated on AM, extubated 02/11/2020 p.m. Nebulizers, IV steroids, IV antibiotic, inhalation steroids Pulmonary critical following Okay to transfer to the floor --Acute exacerbation of COPD; Nebulizers, IV steroids, antibiotics, inhalation steroids --History of obesity hypoventilation syndrome/DAVID Patient needs outpatient sleep studies for BiPAP at night --Hypotension/shock ; present on admission Requiring pressors, resolved, blood pressures reasonable level --PUI/high suspicion for COVID 19; COVID test negative Isolation discontinued --Morbid obesity; BMI 46.1 Patient needs weight reduction when medically stable --DVT prophylaxis; Lovenox --Full CODE STATUS Monitor closely and adjust management as needed plan of care reviewed with the patient;s nurse Patient is stable to be transferred out of ICU to telemetry Possible discharge in 1 to 2 days if stable Critical care time 60 minutes History Interval history: Patient seen and examined at the bedside Patient's chart and medications reviewed Feels slightly better no new complaints Saturating well room air Intermittent BiPAP specially at night Vital signs noted Hospitalist Physical - Constitutional Vitals: Temp Pulse Resp BP Pulse Ox 98.6 F 96 H 18 159/87 98 02/13/20 08:09 02/13/20 09:01 02/13/20 08:09 02/13/20 09:01 02/13/20 08:09 General appearance: Present: no acute distress, well-nourished, obese (Morbidly obese) - EENT Eyes: Present: PERRL, EOM intact - Neck Neck: Present: supple, normal ROM - Respiratory Respiratory effort: normal Respiratory: bilateral: diminished, negative: rales, rhonchi, wheezing - Cardiovascular Rhythm: regular Heart Sounds: Present: S1 & S2 - Extremities Extremities: no ischemia, No edema - Abdominal General gastrointestinal: soft, non-tender, non-distended, normal bowel sounds - Integumentary Integumentary: Present: clear, warm - Psychiatric Psychiatric: appropriate mood/affect, cooperative - Neurologic Neurologic: moves all extremities HEART Score - HEART Score Troponin: Troponin T < 0.010 ng/mL (0.00-0.029) 02/11/20 06:29 Results - Labs CBC & Chem 7: 02/12/20 07:08 02/12/20 07:08 Labs: Laboratory Last Values WBC 11.9 K/mm3 (4.5-11.0) H 02/12/20 07:08 RBC 4.54 M/mm3 (3.65-5.03) 02/12/20 07:08 Hgb 12.8 gm/dl (10.1-14.3) 02/12/20 07:08 Hct 39.5 % (30.3-42.9) 02/12/20 07:08 MCV 87 fl (79-97) 02/12/20 07:08 MCH 28 pg (28-32) 02/12/20 07:08 MCHC 32 % (30-34) 02/12/20 07:08 RDW 16.6 % (13.2-15.2) H 02/12/20 07:08 Plt Count 310 K/mm3 (140-440) 02/12/20 07:08 Lymph % (Auto) 14.4 % (13.4-35.0) 02/11/20 06:29 [place] % (Auto) 7.3 % (0.0-7.3) 02/11/20 06:29 Eos % (Auto) 5.0 % (0.0-4.3) H 02/11/20 06:29 Baso % (Auto) 0.7 % (0.0-1.8) 02/11/20 06:29 Lymph # 1.4 K/mm3 (1.2-5.4) 02/11/20 06:29 [place] # 0.7 K/mm3 (0.0-0.8) 02/11/20 06:29 Eos # 0.5 K/mm3 (0.0-0.4) H 02/11/20 06:29 Baso # 0.1 K/mm3 (0.0-0.1) 02/11/20 06:29 Add Manual Diff Complete 02/12/20 07:08 Total Counted 100 02/12/20 07:08 Seg Neutrophils % [place] 02/12/20 07:08 Seg Neuts % (Manual) 95.0 % (40.0-70.0) H 02/12/20 07:08 Band Neutrophils % 0 % 02/12/20 07:08 Lymphocytes % (Manual) 4.0 % (13.4-35.0) L 02/12/20 07:08 Reactive Lymphs % (Man) 0 % 02/12/20 07:08 Monocytes % (Manual) 0 % (0.0-7.3) 02/12/20 07:08 Eosinophils % (Manual) 0 % (0.0-4.3) 02/12/20 07:08 Basophils % (Manual) 0 % (0.0-1.8) 02/12/20 07:08 Metamyelocytes % 1.0 % 02/12/20 07:08 Myelocytes % 0 % 02/12/20 07:08 Promyelocytes % 0 % 02/12/20 07:08 Blast Cells % 0 % 02/12/20 07:08 Nucleated RBC % Not Reportable 02/12/20 07:08 Seg Neutrophils # 7.0 K/mm3 (1.8-7.7) 02/11/20 06:29 Seg Neutrophils # Man 11.3 K/mm3 (1.8-7.7) H 02/12/20 07:08 Band Neutrophils # 0.0 K/mm3 02/12/20 07:08 Lymphocytes # (Manual) 0.5 K/mm3 (1.2-5.4) L 02/12/20 07:08 Abs React Lymphs (Man) 0.0 K/mm3 02/12/20 07:08 Monocytes # (Manual) 0.0 K/mm3 (0.0-0.8) 02/12/20 07:08 Eosinophils # (Manual) 0.0 K/mm3 (0.0-0.4) 02/12/20 07:08 Basophils # (Manual) 0.0 K/mm3 (0.0-0.1) 02/12/20 07:08 Metamyelocytes # 0.1 K/mm3 02/12/20 07:08 Myelocytes # 0.0 K/mm3 02/12/20 07:08 Promyelocytes # 0.0 K/mm3 02/12/20 07:08 Blast Cells # 0.0 K/mm3 02/12/20 07:08 WBC Morphology Not Reportable 02/12/20 07:08 WBC Morphology TNR 02/12/20 07:08 Hypersegmented Neuts Not Reportable 02/12/20 07:08 Hyposegmented Neuts Not Reportable 02/12/20 07:08 Hypogranular Neuts Not Reportable 02/12/20 07:08 Smudge Cells Not Reportable 02/12/20 07:08 Toxic Granulation Not Reportable 02/12/20 07:08 Toxic Vacuolation Not Reportable 02/12/20 07:08 Dohle Bodies Not Reportable 02/12/20 07:08 Pelger-Huet Anomaly Not Reportable 02/12/20 07:08 Leola Rods Not Reportable 02/12/20 07:08 Platelet Estimate Consistent w auto 02/12/20 07:08 Clumped Platelets Not Reportable 02/12/20 07:08 Plt Clumps, EDTA Not Reportable 02/12/20 07:08 Large Platelets Not Reportable 02/12/20 07:08 Giant Platelets Not Reportable 02/12/20 07:08 Platelet Satelliting Not Reportable 02/12/20 07:08 Plt Morphology Comment Not Reportable 02/12/20 07:08 RBC Morphology Not Reportable 02/12/20 07:08 Dimorphic RBCs Not Reportable 02/12/20 07:08 Polychromasia Not Reportable 02/12/20 07:08 Hypochromasia Few 02/12/20 07:08 Poikilocytosis Not Reportable 02/12/20 07:08 Anisocytosis Not Reportable 02/12/20 07:08 Microcytosis Not Reportable 02/12/20 07:08 Macrocytosis Not Reportable 02/12/20 07:08 Spherocytes Not Reportable 02/12/20 07:08 Pappenheimer Bodies Not Reportable 02/12/20 07:08 Sickle Cells Not Reportable 02/12/20 07:08 Target Cells Few 02/12/20 07:08 Tear Drop Cells Not Reportable 02/12/20 07:08 Ovalocytes Not Reportable 02/12/20 07:08 Helmet Cells Not Reportable 02/12/20 07:08 [place] Bodies Not Reportable 02/12/20 07:08 [place] Rings Not Reportable 02/12/20 07:08 [place] Cells Not Reportable 02/12/20 07:08 Bite Cells Not Reportable 02/12/20 07:08 Crenated Cell Not Reportable 02/12/20 07:08 Elliptocytes Not Reportable 02/12/20 07:08 Acanthocytes (Spur) Not Reportable 02/12/20 07:08 Rouleaux Not Reportable 02/12/20 07:08 Hemoglobin C Crystals Not Reportable 02/12/20 07:08 Schistocytes Not Reportable 02/12/20 07:08 Malaria parasites Not Reportable 02/12/20 07:08 Mike Bodies Not Reportable 02/12/20 07:08 Hem Pathologist Commnt No 02/12/20 07:08 PT 12.7 Sec. (12.2-14.9) 02/11/20 06:38 INR 0.94 (0.87-1.13) 02/11/20 06:38 APTT 29.7 Sec. (24.2-36.6) 02/11/20 06:38 D-Dimer 300.90 ng/mlDDU (0-234) H 02/11/20 06:38 ABG pH 7.333 pH Units (7.350-7.450) L 02/11/20 21:40 ABG pCO2 49.2 mm Hg 02/11/20 21:40 ABG pO2 110.3 mm Hg (80.0-90.0) H 02/11/20 21:40 ABG HCO3 25.6 mmol/L (20.0-26.0) 02/11/20 21:40 ABG O2 Saturation 97.7 % (95.0-99.0) 02/11/20 21:40 ABG O2 Content 16.9 (0.0-44) 02/11/20 21:40 ABG Base Excess -0.8 mmol/L (-2.0-3.0) 02/11/20 21:40 ABG Hemoglobin 12.4 gm/dl (12.0-16.0) 02/11/20 21:40 ABG Carboxyhemoglobin 1.2 % (0.0-5.0) 02/11/20 21:40 ABG Methemoglobin 0.6 % (0.0-1.5) 02/11/20 21:40 Oxyhemoglobin 96.0 % (95.0-99.0) 02/11/20 21:40 FiO2 60 % 02/11/20 21:40 Sodium 140 mmol/L (137-145) D 02/12/20 07:08 Potassium 5.1 mmol/L (3.6-5.0) H 02/12/20 07:08 Chloride 100.1 mmol/L (98-107) 02/12/20 07:08 Carbon Dioxide 29 mmol/L (22-30) 02/12/20 07:08 Anion Gap 16 mmol/L 02/12/20 07:08 BUN 11 mg/dL (7-17) 02/12/20 07:08 Creatinine 0.7 mg/dL (0.6-1.2) 02/12/20 07:08 Estimated GFR > 60 ml/min 02/12/20 07:08 BUN/Creatinine Ratio 16 % 02/12/20 07:08 Glucose 169 mg/dL (65-100) H 02/12/20 07:08 POC Glucose 95 (70-105) 02/13/20 05:35 Lactic Acid 1.50 mmol/L (0.7-2.0) 02/11/20 09:50 Calcium 9.4 mg/dL (8.4-10.2) 02/12/20 07:08 Phosphorus 3.90 mg/dL (2.5-4.5) 02/12/20 07:08 Magnesium 2.30 mg/dL (1.7-2.3) 02/12/20 07:08 Ferritin 150.5 ng/mL (10.0-200.0) 02/11/20 07:44 Total Bilirubin 0.30 mg/dL (0.1-1.2) 02/12/20 07:08 AST 18 units/L (5-40) 02/12/20 07:08 ALT 17 units/L (7-56) 02/12/20 07:08 Alkaline Phosphatase 126 units/L (35-129) 02/12/20 07:08 Ammonia 56.0 umol/L (25-60) 02/11/20 06:29 Lactate Dehydrogenase 191 units/L (91-180) H 02/11/20 07:44 Troponin T < 0.010 ng/mL (0.00-0.029) 02/11/20 06:29 C-Reactive Protein 1.50 mg/dL (0.00-1.30) H 02/11/20 07:44 NT-Pro-B Natriuret Pep 101.8 pg/mL (0-900) 02/11/20 06:38 Total Protein 6.9 g/dL (6.3-8.2) 02/12/20 07:08 Albumin 3.9 g/dL (3.9-5) 02/12/20 07:08 Albumin/Globulin Ratio 1.3 % 02/12/20 07:08 Procalcitonin < 0.05 ng/mL (<0.15) 02/11/20 07:44 TSH 1.880 mlU/mL (0.270-4.200) 02/11/20 07:44 Urine Color Yellow (Yellow) 02/11/20 Unknown Urine Turbidity Cloudy (Clear) 02/11/20 Unknown Urine pH 5.0 (5.0-7.0) 02/11/20 Unknown Ur Specific [place] 1.015 (1.003-1.030) 02/11/20 Unknown Urine Protein 100 mg/dl mg/dL (Negative) 02/11/20 Unknown Urine Glucose (UA) Neg mg/dL (Negative) 02/11/20 Unknown Urine Ketones Neg mg/dL (Negative) 02/11/20 Unknown Urine Blood Sm (Negative) 02/11/20 Unknown Urine Nitrite Neg (Negative) 02/11/20 Unknown Urine Bilirubin Neg (Negative) 02/11/20 Unknown Urine Urobilinogen 2.0 mg/dL (<2.0) 02/11/20 Unknown Ur Leukocyte Esterase Neg (Negative) 02/11/20 Unknown Urine WBC (Auto) 3.0 /HPF (0.0-6.0) 02/11/20 Unknown Urine RBC (Auto) 1.0 /HPF (0.0-6.0) 02/11/20 Unknown U Epithel Cells (Auto) 3.0 /HPF (0-13.0) 02/11/20 Unknown Urine Bacteria (Auto) 1+ /HPF (Negative) 02/11/20 Unknown Urine Mucus Few /HPF 02/11/20 Unknown Urine Opiates Screen Negative 02/11/20 Unknown Urine Methadone Screen Negative 02/11/20 Unknown Ur Barbiturates Screen Negative 02/11/20 Unknown Ur Phencyclidine Scrn Negative 02/11/20 Unknown Ur Amphetamines Screen Negative 02/11/20 Unknown U Benzodiazepines Scrn Positive 02/11/20 Unknown Urine Cocaine Screen Negative 02/11/20 Unknown U Marijuana (THC) Screen Positive 02/11/20 Unknown Drugs of Abuse Note Disclamer 02/11/20 Unknown Plasma/Serum Alcohol < 0.01 % (0-0.07) 02/11/20 06:29 Coronavirus (PCR) Negative (Negative) 02/11/20 Unknown Microbiology: Microbiology 02/11/20 08:40 Tracheal Aspirate Sputum Culture - Final 02/11/20 14:40 Peripheral/Venous Blood Culture - Preliminary NO GROWTH AFTER 24 HOURS 02/11/20 14:40 Peripheral/Venous Blood Culture - Preliminary NO GROWTH AFTER 24 HOURS 02/11/20 Unknown Peripheral/Venous Blood Culture - Preliminary NO GROWTH AFTER 24 HOURS 02/11/20 Unknown Peripheral/Venous Blood Culture - Preliminary NO GROWTH AFTER 24 HOURS Segura/IV: Voiding Method Indwelling Catheter IV Catheter Type [left forearm Peripheral IV ] Active Medications - Current Medications Current Medications: Generic Name Dose Route Start Last Admin Trade Name Freq PRN Reason Stop Dose Admin Amlodipine Besylate 5 mg 02/12/20 10:00 02/13/20 09:00 Amlodipine PO 5 mg QDAY RICHARD Administration Budesonide 0.5 mg 02/11/20 20:00 02/13/20 08:02 Pulmicort IH 0.5 mg Q12HRT RICHARD Administration Enoxaparin Sodium 40 mg 02/11/20 22:00 02/12/20 21:21 Enoxaparin SUB-Q 40 mg QDAY@2200 RICHARD Administration Cefepime HCl 2 gm in 100 mls @ 200 mls/hr 02/11/20 22:00 02/13/20 09:00 Cefepime/Ns 2 Gm/100 Ml IV 200 mls/hr Q12HR RICHARD Administration Protocol Insulin Human Lispro 0 unit 02/13/20 00:00 02/13/20 08:59 Humalog SUB-Q Not Given Q6HR RICHARD Protocol Lisinopril 20 mg 02/12/20 23:45 02/13/20 09:01 Zestril PO 20 mg QDAY RICHARD Administration
--- NOTE | 2020-02-13 12:18 | Progress Note ---
Subjective Date of service: 02/13/20 Interval history: No acute events. Transferred out of unit with no issues. Satting 98% on 3 liters. Tolerated lasix well on yesterday. Objective Vital Signs - 12hr 02/13/20 02/13/20 02/13/20 04:26 08:01 08:02 Temperature 97.9 F Pulse Rate 102 H Pulse Rate [ 93 H Bilateral] Respiratory 18 Rate Respiratory 18 Rate [Bilateral ] Blood Pressure 163/86 O2 Sat by Pulse 84 98 Oximetry 02/13/20 02/13/20 02/13/20 08:09 09:00 09:01 Temperature 98.6 F Pulse Rate 96 H 96 H 96 H Pulse Rate [ Bilateral] Respiratory 18 Rate Respiratory Rate [Bilateral ] Blood Pressure 159/87 159/87 159/87 O2 Sat by Pulse 98 Oximetry 02/13/20 11:48 Temperature 98.6 F Pulse Rate 94 H Pulse Rate [ Bilateral] Respiratory 18 Rate Respiratory Rate [Bilateral ] Blood Pressure 148/84 O2 Sat by Pulse 95 Oximetry Constitutional: no acute distress, alert, other (obese) Eyes: non-icteric ENT: oropharynx moist Neck: supple, other (large in circumference) Effort: mildly labored Ascultation: Bilateral: diminished breath sounds Percussion: Bilateral: not dull Tactile fremitus: Bilateral: normal Cardiovascular: regular rate and rhythm Gastrointestinal: normoactive bowel sounds, soft CBC and BMP: 02/12/20 07:08 02/12/20 07:08 ABG, PT/INR, D-dimer: ABG ABG pH 7.333 pH Units (7.350-7.450) L 02/11/20 21:40 ABG pCO2 49.2 mm Hg 02/11/20 21:40 ABG pO2 110.3 mm Hg (80.0-90.0) H 02/11/20 21:40 ABG O2 Saturation 97.7 % (95.0-99.0) 02/11/20 21:40 PT/INR, D-dimer PT 12.7 Sec. (12.2-14.9) 02/11/20 06:38 INR 0.94 (0.87-1.13) 02/11/20 06:38 D-Dimer 300.90 ng/mlDDU (0-234) H 02/11/20 06:38 Abnormal lab findings: Abnormal Labs 08/01/20 08/01/20 08/01/20 06:29 06:29 06:38 WBC RDW 16.7 H Eos % (Auto) 5.0 H Eos # 0.5 H Seg Neutrophils % 72.6 H Seg Neuts % (Manual) Lymphocytes % (Manual) Seg Neutrophils # Man Lymphocytes # (Manual) D-Dimer ABG pH ABG pO2 ABG HCO3 ABG Base Excess Oxyhemoglobin Sodium 132 L Potassium 5.1 H Chloride 94.7 L BUN 23 H Creatinine 1.3 H Glucose 273 H POC Glucose Lactic Acid 2.40 H* Calcium 8.2 L Lactate Dehydrogenase C-Reactive Protein Total Protein 6.2 L Albumin 3.6 L 02/11/20 02/11/20 02/11/20 06:38 06:39 07:30 WBC RDW Eos % (Auto) Eos # Seg Neutrophils % Seg Neuts % (Manual) Lymphocytes % (Manual) Seg Neutrophils # Man Lymphocytes # (Manual) D-Dimer 300.90 H ABG pH 6.945 L* ABG pO2 199.6 H ABG HCO3 29.7 H ABG Base Excess -5.7 L Oxyhemoglobin 93.8 L Sodium Potassium Chloride BUN Creatinine Glucose POC Glucose 248 H Lactic Acid Calcium Lactate Dehydrogenase C-Reactive Protein Total Protein Albumin 02/11/20 02/11/20 02/11/20 07:44 11:40 21:40 WBC RDW Eos % (Auto) Eos # Seg Neutrophils % Seg Neuts % (Manual) Lymphocytes % (Manual) Seg Neutrophils # Man Lymphocytes # (Manual) D-Dimer ABG pH 7.248 L 7.333 L ABG pO2 170.0 H 110.3 H ABG HCO3 ABG Base Excess -5.3 L Oxyhemoglobin Sodium Potassium Chloride BUN Creatinine Glucose 270 H POC Glucose Lactic Acid Calcium Lactate Dehydrogenase 191 H C-Reactive Protein 1.50 H Total Protein Albumin 02/12/20 02/12/20 02/12/20 06:04 07:08 07:08 WBC 11.9 H RDW 16.6 H Eos % (Auto) Eos # Seg Neutrophils % Seg Neuts % (Manual) 95.0 H Lymphocytes % (Manual) 4.0 L Seg Neutrophils # Man 11.3 H Lymphocytes # (Manual) 0.5 L D-Dimer ABG pH ABG pO2 ABG HCO3 ABG Base Excess Oxyhemoglobin Sodium Potassium 5.1 H Chloride BUN Creatinine Glucose 169 H POC Glucose 152 H Lactic Acid Calcium Lactate Dehydrogenase C-Reactive Protein Total Protein Albumin 02/12/20 02/12/20 11:44 23:28 WBC RDW Eos % (Auto) Eos # Seg Neutrophils % Seg Neuts % (Manual) Lymphocytes % (Manual) Seg Neutrophils # Man Lymphocytes # (Manual) D-Dimer ABG pH ABG pO2 ABG HCO3 ABG Base Excess Oxyhemoglobin Sodium Potassium Chloride BUN Creatinine Glucose POC Glucose 253 H 225 H Lactic Acid Calcium Lactate Dehydrogenase C-Reactive Protein Total Protein Albumin
[2020-02-13] MEDS ORDERED: FUROSEMIDE 20 MG/2 ML INJ IV ONE (12:19)
--- NOTE | 2020-02-13 13:17 | Progress Note ---
Assessment and Plan Cultures: COVID-19 testing negative Blood cx 02/11/2020 no growth Urine cx 02/11/2020 10-100K mixed Tracheal asp 02/11/2020 poor quality A/P: 59-year-old female past medical history diabetes, hypertension, morbid obesity presented with acute hypoxic respiratory failure. #Acute hypercapmic respiratory failure: Unclear etiology given negative COVID-19 test again ?DAVID. No evidence of pneumonia, normal procalcitonin. Was intubated now NC 3L #Diabetes: tight glycemic control for best outcomes. #CKD: Renally dose antibiotics #Bacteriuria: UA not c/w UTI Recs: -stop cefepime -monitor off abx will sign off Milena Mitchell MD [facility] ([facility]) Office [phone] Subjective Date of service: 02/13/20 Principal diagnosis: sepsis Interval history: Feels better, no fever Objective - Exam Narrative Exam: Constitutional: Alert, cooperative. No acute distress, obese Head, Ears, Nose: Normocephalic, atraumatic. External ears, nose normal Eyes: Conjunctivae/corneas clear. No icterus. No ptosis. Neck: Supple, no meningeal signs Oral: dentition fair, no thrush Cardiovascular: S1, S2 normal. Respiratory: Good air entry, clear to auscultation bilaterally GI: soft non tender Musculoskeletal: No pedal edema, no cyanosis. Skin: No rash or abscess Hem/Lymphatic: No palpable cervical or supraclavicular nodes. No lymphangitis Psych: Mood ok. Affect normal Neurological: Awake, alert, oriented. No gross abnormality - Constitutional Vitals: Vital Signs Temp Pulse Resp BP Pulse Ox 98.6 F 94 H 18 148/84 95 02/13/20 11:48 02/13/20 11:48 02/13/20 11:48 02/13/20 11:48 02/13/20 11:48 Temperature -Last 24 Hours Temperature 98.6 F Temperature 98.6 F Temperature 97.9 F Temperature 98.6 F Temperature 98.0 F - Labs CBC & Chem 7: 02/12/20 07:08 02/12/20 07:08 Labs: Abnormal lab results 02/12/20 02/13/20 Range/Units 23:28 11:59 POC Glucose 225 H 208 H (70-105)
[2020-02-13] MEDS ORDERED: MODERATE DOSE SS, INSULIN LISPRO SUB-Q SCH (16:30)
[2020-02-13] MEDS: MODERATE DOSE SS, INSULIN LISPRO SUB-Q SCH (18:39)
[2020-02-13] MEDS: ENOXAPARIN 40 MG/0.4 ML INJ SUB-Q SCH (21:41)
[2020-02-13] MEDS ORDERED: GABAPENTIN 500 MG/10 ML ORAL LIQD PO SCH (23:00)
[2020-02-13] MEDS: TEMAZEPAM 15 MG CAP PO PRN (23:20)
[2020-02-13] MEDS: GABAPENTIN 300 MG CAP PO SCH (23:23)
[2020-02-14] MEDS: GABAPENTIN 300 MG CAP PO SCH ×3 (05:28→21:34)
[2020-02-14 05:38] LABS: Basophils # (Auto) 0.1 K/mm3 (0.0-0.1); Basophils % (Auto) 0.9 % (0.0-1.8); Eosinophils # (Auto) 0.3 K/mm3 (0.0-0.4); Eosinophils % (Auto) 3.5 % (0.0-4.3); Hematocrit 39.8 % (30.3-42.9); Hemoglobin 12.9 gm/dl (10.1-14.3); Lymphocytes # (Auto) 3.1 K/mm3 (1.2-5.4); Lymphocytes % (Auto) 31.9 % (13.4-35.0); Mean Corpuscular HGB Conc 32 % (30-34); Mean Corpuscular Volume 86 fl (79-97); Monocytes # (Auto) 0.5 K/mm3 (0.0-0.8); Platelet Count 405 K/mm3 (140-440); Red Blood Count 4.62 M/mm3 (3.65-5.03); Red Cell Distribution Width 16.7 % (13.2-15.2)
[2020-02-14 05:50] LABS: BUN/Creatinine Ratio 24; Blood Urea Nitrogen 22 mg/dL (7-17); Calcium 9.3 mg/dL (8.4-10.2); Hemolysis Index 2
[2020-02-14] MEDS: BUDESONIDE 0.5 MG/2 ML NEBU IH SCH ×2 (08:14→20:53)
--- NOTE | 2020-02-14 09:17 | Progress Note ---
Assessment and Plan 59 y/o female with acute hypercapnic respiratory failure, now extubated. 1. Bipap therapy at night. If bipap is not available that is one thing. Will speak with RT director in regards to documentation from last night. 2. Needs trilogy for home, but will need help to decipher Insurance. (per patient has a hospitalization plan via [employer]). Await to see if further info was found on this matter. 3. Hold lasix today, continue amlodipine 4. Like can be discharged once coverage is figured out as patient needs several things that could get expensive for her. Subjective Date of service: 02/14/20 Principal diagnosis: sepsis Interval history: Waiting to hear back from CM in regards to funding. Tolerating lasix therapy. BP much improved. Does qualify for oxygen based on walk test yesterday. Wore CPAP last night per RT as "that was what was in her room" Objective Vital Signs - 12hr 02/13/20 02/14/20 02/14/20 23:45 00:00 04:11 Temperature 98.1 F 98.4 F Pulse Rate 99 H 94 H 88 Respiratory 18 18 20 Rate Blood Pressure 111/63 139/74 O2 Sat by Pulse 95 99 91 Oximetry Constitutional: no acute distress, alert, other (obese) Eyes: non-icteric ENT: oropharynx moist Neck: supple, other (large in circumference) Effort: mildly labored Ascultation: Bilateral: diminished breath sounds Percussion: Bilateral: not dull Tactile fremitus: Bilateral: normal Cardiovascular: regular rate and rhythm Gastrointestinal: normoactive bowel sounds, soft CBC and BMP: 02/14/20 04:37 02/14/20 04:37 ABG, PT/INR, D-dimer: ABG ABG pH 7.333 pH Units (7.350-7.450) L 02/11/20 21:40 ABG pCO2 49.2 mm Hg 02/11/20 21:40 ABG pO2 110.3 mm Hg (80.0-90.0) H 02/11/20 21:40 ABG O2 Saturation 97.7 % (95.0-99.0) 02/11/20 21:40 PT/INR, D-dimer PT 12.7 Sec. (12.2-14.9) 02/11/20 06:38 INR 0.94 (0.87-1.13) 02/11/20 06:38 D-Dimer 300.90 ng/mlDDU (0-234) H 02/11/20 06:38 Abnormal lab findings: Abnormal Labs 02/11/20 02/11/20 02/11/20 06:29 06:29 06:38 WBC RDW 16.7 H Eos % (Auto) 5.0 H Eos # 0.5 H Seg Neutrophils % 72.6 H Seg Neuts % (Manual) Lymphocytes % (Manual) Seg Neutrophils # Man Lymphocytes # (Manual) D-Dimer ABG pH ABG pO2 ABG HCO3 ABG Base Excess Oxyhemoglobin Sodium 132 L Potassium 5.1 H Chloride 94.7 L Carbon Dioxide BUN 23 H Creatinine 1.3 H Glucose 273 H POC Glucose Lactic Acid 2.40 H* Calcium 8.2 L Lactate Dehydrogenase C-Reactive Protein Total Protein 6.2 L Albumin 3.6 L 02/11/20 02/11/20 02/11/20 06:38 06:39 07:30 WBC RDW Eos % (Auto) Eos # Seg Neutrophils % Seg Neuts % (Manual) Lymphocytes % (Manual) Seg Neutrophils # Man Lymphocytes # (Manual) D-Dimer 300.90 H ABG pH 6.945 L* ABG pO2 199.6 H ABG HCO3 29.7 H ABG Base Excess -5.7 L Oxyhemoglobin 93.8 L Sodium Potassium Chloride Carbon Dioxide BUN Creatinine Glucose POC Glucose 248 H Lactic Acid Calcium Lactate Dehydrogenase C-Reactive Protein Total Protein Albumin 02/11/20 02/11/20 02/11/20 07:44 11:40 21:40 WBC RDW Eos % (Auto) Eos # Seg Neutrophils % Seg Neuts % (Manual) Lymphocytes % (Manual) Seg Neutrophils # Man Lymphocytes # (Manual) D-Dimer ABG pH 7.248 L 7.333 L ABG pO2 170.0 H 110.3 H ABG HCO3 ABG Base Excess -5.3 L Oxyhemoglobin Sodium Potassium Chloride Carbon Dioxide BUN Creatinine Glucose 270 H POC Glucose Lactic Acid Calcium Lactate Dehydrogenase 191 H C-Reactive Protein 1.50 H Total Protein Albumin 02/12/20 02/12/20 02/12/20 06:04 07:08 07:08 WBC 11.9 H RDW 16.6 H Eos % (Auto) Eos # Seg Neutrophils % Seg Neuts % (Manual) 95.0 H Lymphocytes % (Manual) 4.0 L Seg Neutrophils # Man 11.3 H Lymphocytes # (Manual) 0.5 L D-Dimer ABG pH ABG pO2 ABG HCO3 ABG Base Excess Oxyhemoglobin Sodium Potassium 5.1 H Chloride Carbon Dioxide BUN Creatinine Glucose 169 H POC Glucose 152 H Lactic Acid Calcium Lactate Dehydrogenase C-Reactive Protein Total Protein Albumin 02/12/20 02/12/20 02/13/20 11:44 23:28 11:59 WBC RDW Eos % (Auto) Eos # Seg Neutrophils % Seg Neuts % (Manual) Lymphocytes % (Manual) Seg Neutrophils # Man Lymphocytes # (Manual) D-Dimer ABG pH ABG pO2 ABG HCO3 ABG Base Excess Oxyhemoglobin Sodium Potassium Chloride Carbon Dioxide BUN Creatinine Glucose POC Glucose 253 H 225 H 208 H Lactic Acid Calcium Lactate Dehydrogenase C-Reactive Protein Total Protein Albumin 02/13/20 02/14/20 02/14/20 16:20 00:02 04:37 WBC RDW 16.7 H Eos % (Auto) Eos # Seg Neutrophils % Seg Neuts % (Manual) Lymphocytes % (Manual) Seg Neutrophils # Man Lymphocytes # (Manual) D-Dimer ABG pH ABG pO2 ABG HCO3 ABG Base Excess Oxyhemoglobin Sodium Potassium Chloride Carbon Dioxide BUN Creatinine Glucose POC Glucose 382 H 133 H Lactic Acid Calcium Lactate Dehydrogenase C-Reactive Protein Total Protein Albumin 02/14/20 02/14/20 04:37 08:08 WBC RDW Eos % (Auto) Eos # Seg Neutrophils % Seg Neuts % (Manual) Lymphocytes % (Manual) Seg Neutrophils # Man Lymphocytes # (Manual) D-Dimer ABG pH ABG pO2 ABG HCO3 ABG Base Excess Oxyhemoglobin Sodium Potassium Chloride 96.4 L Carbon Dioxide 32 H BUN 22 H Creatinine Glucose 154 H POC Glucose 163 H Lactic Acid Calcium Lactate Dehydrogenase C-Reactive Protein Total Protein Albumin
[2020-02-14] MEDS: LISINOPRIL 20 MG TAB PO SCH (10:07)
[2020-02-14] MEDS: INSULIN NPH/REGULAR 70/30 INJ SUB-Q SCH ×2 (10:07→17:12)
[2020-02-14] MEDS: amLODIPine 5 MG TAB PO SCH (10:07)
[2020-02-14] MEDS: MODERATE DOSE SS, INSULIN LISPRO SUB-Q SCH ×3 (10:09→17:12)
--- NOTE | 2020-02-14 20:53 | Progress Note ---
Assessment and Plan Assessment and plan: --Acute hypoxic hypercapnic respiratory failure; intubated on AM, extubated 02/11/2020 p.m. Nebulizers, IV steroids, IV antibiotic, inhalation steroids Patient symptoms significantly improved --Acute metabolic encephalopathy present on admission Resolved back to baseline alert awake oriented --Acute exacerbation of COPD; Nebulizers, IV steroids, antibiotics, inhalation steroids --History of obesity hypoventilation syndrome/DAVID Patient needs outpatient sleep studies for BiPAP at night --Hypotension/shock ; present on admission Requiring pressors, resolved, blood pressures reasonable level --PUI/high suspicion for COVID 19; COVID test negative Isolation discontinued --Morbid obesity; BMI 46.1 Patient needs weight reduction when medically stable --DVT prophylaxis; Lovenox --Full CODE STATUS Monitor closely and adjust management as needed DC planning per case management Pulmonary recommend trilogy CM assisting with discharge planning Plan of care reviewed with the patient and her nurse History Interval history: I have seen and examined the patient at the bedside this morning Patient feels better no new complaints Patient is ambulatory in the room without oxygen Pulmonary recommended trilogy Denies chest pain or shortness of breath Vital signs reviewed Hospitalist Physical - Constitutional Vitals: Temp Pulse Resp BP Pulse Ox 96.9 F L 94 H 18 135/70 91 02/14/20 19:50 02/14/20 19:50 02/14/20 19:50 02/14/20 19:50 02/14/20 19:50 General appearance: Present: no acute distress, well-nourished, obese (Morbidly obese) - EENT Eyes: Present: PERRL, EOM intact - Neck Neck: Present: supple, normal ROM - Respiratory Respiratory effort: normal Respiratory: bilateral: diminished, negative: rales, rhonchi, wheezing - Cardiovascular Rhythm: regular Heart Sounds: Present: S1 & S2 - Extremities Extremities: no ischemia, No edema - Abdominal General gastrointestinal: soft, non-tender, non-distended, normal bowel sounds - Integumentary Integumentary: Present: clear, warm - Psychiatric Psychiatric: appropriate mood/affect, cooperative - Neurologic Neurologic: CNII-XII intact, moves all extremities HEART Score - HEART Score Troponin: Troponin T < 0.010 ng/mL (0.00-0.029) 02/11/20 06:29 Results - Labs CBC & Chem 7: 08/04/20 04:37 02/14/20 04:37 Labs: Laboratory Last Values WBC 9.8 K/mm3 (4.5-11.0) 02/14/20 04:37 RBC 4.62 M/mm3 (3.65-5.03) 02/14/20 04:37 Hgb 12.9 gm/dl (10.1-14.3) 02/14/20 04:37 Hct 39.8 % (30.3-42.9) 02/14/20 04:37 MCV 86 fl (79-97) 02/14/20 04:37 MCH 28 pg (28-32) 02/14/20 04:37 MCHC 32 % (30-34) 02/14/20 04:37 RDW 16.7 % (13.2-15.2) H 02/14/20 04:37 Plt Count 405 K/mm3 (140-440) 02/14/20 04:37 Lymph % (Auto) 31.9 % (13.4-35.0) 02/14/20 04:37 Wallace % (Auto) 5.0 % (0.0-7.3) 02/14/20 04:37 Eos % (Auto) 3.5 % (0.0-4.3) 02/14/20 04:37 Baso % (Auto) 0.9 % (0.0-1.8) 02/14/20 04:37 Lymph # 3.1 K/mm3 (1.2-5.4) 02/14/20 04:37 Wallace # 0.5 K/mm3 (0.0-0.8) 02/14/20 04:37 Eos # 0.3 K/mm3 (0.0-0.4) 02/14/20 04:37 Baso # 0.1 K/mm3 (0.0-0.1) 02/14/20 04:37 Add Manual Diff Complete 02/12/20 07:08 Total Counted 100 02/12/20 07:08 Seg Neutrophils % 58.7 % (40.0-70.0) 02/14/20 04:37 Seg Neuts % (Manual) 95.0 % (40.0-70.0) H 02/12/20 07:08 Band Neutrophils % 0 % 02/12/20 07:08 Lymphocytes % (Manual) 4.0 % (13.4-35.0) L 02/12/20 07:08 Reactive Lymphs % (Man) 0 % 02/12/20 07:08 Monocytes % (Manual) 0 % (0.0-7.3) 02/12/20 07:08 Eosinophils % (Manual) 0 % (0.0-4.3) 02/12/20 07:08 Basophils % (Manual) 0 % (0.0-1.8) 02/12/20 07:08 Metamyelocytes % 1.0 % 02/12/20 07:08 Myelocytes % 0 % 02/12/20 07:08 Promyelocytes % 0 % 02/12/20 07:08 Blast Cells % 0 % 02/12/20 07:08 Nucleated RBC % Not Reportable 02/12/20 07:08 Seg Neutrophils # 5.8 K/mm3 (1.8-7.7) 02/14/20 04:37 Seg Neutrophils # Man 11.3 K/mm3 (1.8-7.7) H 02/12/20 07:08 Band Neutrophils # 0.0 K/mm3 02/12/20 07:08 Lymphocytes # (Manual) 0.5 K/mm3 (1.2-5.4) L 02/12/20 07:08 Abs React Lymphs (Man) 0.0 K/mm3 02/12/20 07:08 Monocytes # (Manual) 0.0 K/mm3 (0.0-0.8) 02/12/20 07:08 Eosinophils # (Manual) 0.0 K/mm3 (0.0-0.4) 02/12/20 07:08 Basophils # (Manual) 0.0 K/mm3 (0.0-0.1) 02/12/20 07:08 Metamyelocytes # 0.1 K/mm3 02/12/20 07:08 Myelocytes # 0.0 K/mm3 02/12/20 07:08 Promyelocytes # 0.0 K/mm3 02/12/20 07:08 Blast Cells # 0.0 K/mm3 02/12/20 07:08 WBC Morphology Not Reportable 02/12/20 07:08 WBC Morphology TNR 02/12/20 07:08 Hypersegmented Neuts Not Reportable 02/12/20 07:08 Hyposegmented Neuts Not Reportable 02/12/20 07:08 Hypogranular Neuts Not Reportable 02/12/20 07:08 Smudge Cells Not Reportable 02/12/20 07:08 Toxic Granulation Not Reportable 02/12/20 07:08 Toxic Vacuolation Not Reportable 02/12/20 07:08 Dohle Bodies Not Reportable 02/12/20 07:08 Pelger-Huet Anomaly Not Reportable 02/12/20 07:08 Leola Rods Not Reportable 02/12/20 07:08 Platelet Estimate Consistent w auto 02/12/20 07:08 Clumped Platelets Not Reportable 02/12/20 07:08 Plt Clumps, EDTA Not Reportable 02/12/20 07:08 Large Platelets Not Reportable 02/12/20 07:08 Giant Platelets Not Reportable 02/12/20 07:08 Platelet Satelliting Not Reportable 02/12/20 07:08 Plt Morphology Comment Not Reportable 02/12/20 07:08 RBC Morphology Not Reportable 02/12/20 07:08 Dimorphic RBCs Not Reportable 02/12/20 07:08 Polychromasia Not Reportable 02/12/20 07:08 Hypochromasia Few 02/12/20 07:08 Poikilocytosis Not Reportable 02/12/20 07:08 Anisocytosis Not Reportable 02/12/20 07:08 Microcytosis Not Reportable 02/12/20 07:08 Macrocytosis Not Reportable 02/12/20 07:08 Spherocytes Not Reportable 02/12/20 07:08 Pappenheimer Bodies Not Reportable 02/12/20 07:08 Sickle Cells Not Reportable 02/12/20 07:08 Target Cells Few 02/12/20 07:08 Tear Drop Cells Not Reportable 02/12/20 07:08 Ovalocytes Not Reportable 02/12/20 07:08 Helmet Cells Not Reportable 02/12/20 07:08 [place] Bodies Not Reportable 02/12/20 07:08 [place] Rings Not Reportable 02/12/20 07:08 [place] Cells Not Reportable 02/12/20 07:08 Bite Cells Not Reportable 02/12/20 07:08 Crenated Cell Not Reportable 02/12/20 07:08 Elliptocytes Not Reportable 02/12/20 07:08 Acanthocytes (Spur) Not Reportable 02/12/20 07:08 Rouleaux Not Reportable 02/12/20 07:08 Hemoglobin C Crystals Not Reportable 02/12/20 07:08 Schistocytes Not Reportable 02/12/20 07:08 Malaria parasites Not Reportable 02/12/20 07:08 Mike Bodies Not Reportable 02/12/20 07:08 Hem Pathologist Commnt No 02/12/20 07:08 PT 12.7 Sec. (12.2-14.9) 02/11/20 06:38 INR 0.94 (0.87-1.13) 02/11/20 06:38 APTT 29.7 Sec. (24.2-36.6) 02/11/20 06:38 D-Dimer 300.90 ng/mlDDU (0-234) H 02/11/20 06:38 ABG pH 7.333 pH Units (7.350-7.450) L 02/11/20 21:40 ABG pCO2 49.2 mm Hg 02/11/20 21:40 ABG pO2 110.3 mm Hg (80.0-90.0) H 02/11/20 21:40 ABG HCO3 25.6 mmol/L (20.0-26.0) 02/11/20 21:40 ABG O2 Saturation 97.7 % (95.0-99.0) 02/11/20 21:40 ABG O2 Content 16.9 (0.0-44) 02/11/20 21:40 ABG Base Excess -0.8 mmol/L (-2.0-3.0) 02/11/20 21:40 ABG Hemoglobin 12.4 gm/dl (12.0-16.0) 02/11/20 21:40 ABG Carboxyhemoglobin 1.2 % (0.0-5.0) 02/11/20 21:40 ABG Methemoglobin 0.6 % (0.0-1.5) 02/11/20 21:40 Oxyhemoglobin 96.0 % (95.0-99.0) 02/11/20 21:40 FiO2 60 % 02/11/20 21:40 Sodium 141 mmol/L (137-145) 02/14/20 04:37 Potassium 3.7 mmol/L (3.6-5.0) D 02/14/20 04:37 Chloride 96.4 mmol/L (98-107) L 02/14/20 04:37 Carbon Dioxide 32 mmol/L (22-30) H 02/14/20 04:37 Anion Gap 16 mmol/L 02/14/20 04:37 BUN 22 mg/dL (7-17) H 02/14/20 04:37 Creatinine 0.9 mg/dL (0.6-1.2) 02/14/20 04:37 Estimated GFR > 60 ml/min 02/14/20 04:37 BUN/Creatinine Ratio 24 % 02/14/20 04:37 Glucose 154 mg/dL (65-100) H 02/14/20 04:37 POC Glucose 75 (70-105) 02/14/20 16:34 Lactic Acid 1.50 mmol/L (0.7-2.0) 02/11/20 09:50 Calcium 9.3 mg/dL (8.4-10.2) 02/14/20 04:37 Phosphorus 3.90 mg/dL (2.5-4.5) 02/12/20 07:08 Magnesium 1.90 mg/dL (1.7-2.3) 02/14/20 04:37 Ferritin 150.5 ng/mL (10.0-200.0) 02/11/20 07:44 Total Bilirubin 0.30 mg/dL (0.1-1.2) 02/12/20 07:08 AST 18 units/L (5-40) 02/12/20 07:08 ALT 17 units/L (7-56) 02/12/20 07:08 Alkaline Phosphatase 126 units/L (35-129) 02/12/20 07:08 Ammonia 56.0 umol/L (25-60) 02/11/20 06:29 Lactate Dehydrogenase 191 units/L (91-180) H 02/11/20 07:44 Troponin T < 0.010 ng/mL (0.00-0.029) 02/11/20 06:29 C-Reactive Protein 1.50 mg/dL (0.00-1.30) H 02/11/20 07:44 NT-Pro-B Natriuret Pep 101.8 pg/mL (0-900) 02/11/20 06:38 Total Protein 6.9 g/dL (6.3-8.2) 02/12/20 07:08 Albumin 3.9 g/dL (3.9-5) 02/12/20 07:08 Albumin/Globulin Ratio 1.3 % 02/12/20 07:08 Procalcitonin < 0.05 ng/mL (<0.15) 02/11/20 07:44 TSH 1.880 mlU/mL (0.270-4.200) 02/11/20 07:44 Urine Color Yellow (Yellow) 02/11/20 Unknown Urine Turbidity Cloudy (Clear) 02/11/20 Unknown Urine pH 5.0 (5.0-7.0) 02/11/20 Unknown Ur Specific [place] 1.015 (1.003-1.030) 02/11/20 Unknown Urine Protein 100 mg/dl mg/dL (Negative) 02/11/20 Unknown Urine Glucose (UA) Neg mg/dL (Negative) 02/11/20 Unknown Urine Ketones Neg mg/dL (Negative) 02/11/20 Unknown Urine Blood Sm (Negative) 02/11/20 Unknown Urine Nitrite Neg (Negative) 02/11/20 Unknown Urine Bilirubin Neg (Negative) 02/11/20 Unknown Urine Urobilinogen 2.0 mg/dL (<2.0) 02/11/20 Unknown Ur Leukocyte Esterase Neg (Negative) 02/11/20 Unknown Urine WBC (Auto) 3.0 /HPF (0.0-6.0) 02/11/20 Unknown Urine RBC (Auto) 1.0 /HPF (0.0-6.0) 02/11/20 Unknown U Epithel Cells (Auto) 3.0 /HPF (0-13.0) 02/11/20 Unknown Urine Bacteria (Auto) 1+ /HPF (Negative) 02/11/20 Unknown Urine Mucus Few /HPF 02/11/20 Unknown Urine Opiates Screen Negative 02/11/20 Unknown Urine Methadone Screen Negative 02/11/20 Unknown Ur Barbiturates Screen Negative 02/11/20 Unknown Ur Phencyclidine Scrn Negative 02/11/20 Unknown Ur Amphetamines Screen Negative 02/11/20 Unknown U Benzodiazepines Scrn Positive 02/11/20 Unknown Urine Cocaine Screen Negative 02/11/20 Unknown U Marijuana (THC) Screen Positive 02/11/20 Unknown Drugs of Abuse Note Disclamer 02/11/20 Unknown Plasma/Serum Alcohol < 0.01 % (0-0.07) 02/11/20 06:29 Coronavirus (PCR) Negative (Negative) 02/11/20 Unknown Microbiology: Microbiology 02/11/20 14:40 Peripheral/Venous Blood Culture - Preliminary NO GROWTH AFTER 72 HOURS 02/11/20 14:40 Peripheral/Venous Blood Culture - Preliminary NO GROWTH AFTER 72 HOURS 02/11/20 Unknown Peripheral/Venous Blood Culture - Preliminary NO GROWTH AFTER 72 HOURS 02/11/20 Unknown Peripheral/Venous Blood Culture - Preliminary NO GROWTH AFTER 72 HOURS 02/11/20 21:00 Urine,Catheterized - Straight Catheter Urine Culture - Final Segura/IV: Voiding Method Toilet IV Catheter Type [left forearm Peripheral IV ] Active Medications - Current Medications Current Medications: Generic Name Dose Route Start Last Admin Trade Name Freq PRN Reason Stop Dose Admin Amlodipine Besylate 5 mg 02/12/20 10:00 02/14/20 10:07 Amlodipine PO 5 mg QDAY RICHARD Administration Budesonide 0.5 mg 02/11/20 20:00 02/14/20 08:14 Pulmicort IH 0.5 mg Q12HRT RICHARD Administration Enoxaparin Sodium 40 mg 02/11/20 22:00 02/13/20 21:41 Enoxaparin SUB-Q 40 mg QDAY@2200 RICHARD Administration Gabapentin 300 mg 02/13/20 23:30 02/14/20 14:34 Gabapentin PO 300 mg Q8HR RICHARD Administration Insulin Human Isoph/Insulin Regular 8 unit 02/14/20 08:00 02/14/20 17:12 Humulin 70/30 SUB-Q Not Given BIDDIAB RICHARD Insulin Human Lispro 0 unit 02/13/20 16:30 02/14/20 17:12 Humalog SUB-Q Not Given [facility] Protocol Lisinopril 20 mg 02/12/20 23:45 02/14/20 10:07 Zestril PO 20 mg QDAY RICHARD Administration Temazepam 15 mg 02/13/20 22:43 02/13/20 23:20 Restoril PO 15 mg QHS PRN Administration Sleep Nutrition/Malnutrition Assess - Dietary Evaluation Nutrition/Malnutrition Findings: Nutrition Notes Start: 02/13/20 15:20 Freq: Status: Active Protocol: Document 02/13/20 15:20 LM (Rec: 02/13/20 15:21 LM [id number]) Nutrition Notes 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 Pt stated she has been eating meals but did not eat breakfast due to not liking eggs or grits. Food preferences noted. Nutrition Intervention Revisit per MD consult or patient Sign Off request:
[2020-02-14] MEDS: ENOXAPARIN 40 MG/0.4 ML INJ SUB-Q SCH (21:34)
[2020-02-14] MEDS: TEMAZEPAM 15 MG CAP PO PRN (21:34)
[2020-02-15] MEDS: GABAPENTIN 300 MG CAP PO SCH ×2 (05:30→15:31)
[2020-02-15] MEDS: LISINOPRIL 20 MG TAB PO SCH (10:22)
[2020-02-15] MEDS: INSULIN NPH/REGULAR 70/30 INJ SUB-Q SCH (10:22)
[2020-02-15] MEDS: amLODIPine 5 MG TAB PO SCH (10:23)
[2020-02-15] MEDS: MODERATE DOSE SS, INSULIN LISPRO SUB-Q SCH ×2 (10:23→12:52)
--- NOTE | 2020-02-15 10:36 | XRay Report ---
XR chest 1V ap INDICATION / CLINICAL INFORMATION: post-intubation. COMPARISON: Radiograph from earlier same day. FINDINGS: SUPPORT DEVICES: Interval placement of endotracheal tube. HEART / MEDIASTINUM: Unchanged. LUNGS / PLEURA: Lung parenchyma is not significantly changed. Unchanged pulmonary vascular congestion . Costophrenic sulci are sharp. No pneumothorax. ADDITIONAL FINDINGS: No significant additional findings. IMPRESSION: 1. Endotracheal tube terminates above the clavicular heads. Recommend advancing 3 cm for more appropr iate positioning. Signer Name: Jeffry Angulo MD Signed: 02/11/2020 9:05 AM Workstation Name: [id number]
--- NOTE | 2020-02-15 10:36 | Cat Scan Report ---
CT head/brain wo con INDICATION: AMS. TECHNIQUE: Routine CT head without contrast. All CT scans at this location are performed using CT dos e reduction for ALARA by means of automated exposure control. COMPARISON: None. FINDINGS: Motion somewhat degrades image quality. Intracranial: Hodges-white matter differentiation is maintained. No intracranial hemorrhage. No extra a xial collection.. No hydrocephalus. No herniation. Sinuses: Paranasal sinuses and mastoid air cells are essentially clear. Orbits: Globes are intact. Calvarium: No acute fracture. IMPRESSION: 1. No acute intracranial abnormality. Signer Name: Jeffry Angulo MD Signed: 02/11/2020 9:00 AM Workstation Name: [id number]
[2020-02-15] MEDS: BUDESONIDE 0.5 MG/2 ML NEBU IH SCH (12:08)
[2020-02-15 13:21] VITALS: BP 128/72
--- NOTE | 2020-02-15 14:38 | Discharge Summary ---
Providers - Providers Date of Admission: 02/11/20 10:08 Date of discharge: 02/15/20 Attending physician: PANDA CATES 02/11/20 11:08 Consult to Physician [CONS] Urgent Comment: Consulting Provider: SANIYA STAUFFER Physician Instructions: Reason For Exam: Cc/pulm consult/intubated/septic shock 02/11/20 11:32 Consult to Physician [CONS] Stat Comment: Consulting Provider: PIPPA RIVERO Physician Instructions: Reason For Exam: PUI Primary care physician: SHEARING SHED HAND Hospitalization Condition: Stable Disposition: DC-01 TO HOME OR SELFCARE Time spent for discharge: 32 min Core Measure Documentation - Palliative Care Palliative Care/ Comfort Measures: Not Applicable - Core Measures Any of the following diagnoses?: none Exam - Constitutional Vitals: Temp Pulse Resp BP Pulse Ox 98.4 F 94 H 18 128/72 93 02/15/20 12:55 02/15/20 12:55 02/15/20 12:55 02/15/20 12:55 02/15/20 12:55 General appearance: Present: no acute distress, well-nourished - EENT Eyes: Present: PERRL, EOM intact - Neck Neck: Present: supple, normal ROM - Respiratory Respiratory effort: normal Respiratory: bilateral: diminished, negative: rales, rhonchi, wheezing - Cardiovascular Rhythm: regular Heart Sounds: Present: S1 & S2 - Extremities Extremities: no ischemia, No edema - Abdominal General gastrointestinal: Present: soft, non-tender, non-distended, normal bowel sounds - Integumentary Integumentary: Present: clear, warm - Musculoskeletal Musculoskeletal: strength equal bilaterally, generalized weakness - Psychiatric Psychiatric: appropriate mood/affect, cooperative - Neurologic Neurologic: moves all extremities Plan Activity: advance as tolerated Diet: diabetic Follow up with: PRIMARY MD BERHANE [Primary Care Provider] - 3-5 Days SANIYA STAUFFER MD [Staff Physician] - 14 Days Prescriptions: Furosemide [Lasix] 20 mg PO QDAY PRN #14 tablet PRN Reason: Edema
== END 2020-02-15 16:30 | disposition home or self-care (01) | DRG 208 ==
LOC: ED 05:49 → CC1 10:08 → 4A 02-12 13:01
PROVIDERS: ADMIT Internal Medicine; ATTEND Internal Medicine
PROC: 06HY33Z Insertion of Infusion Device into Lower Vein, Percutaneous Approach (ICD-10-PCS; principal; 2020-02-11)
PROC: 5A1935Z Respiratory Ventilation, Less than 24 Consecutive Hours (ICD-10-PCS; 2020-02-11)
PROC: 0BH17EZ Insertion of Endotracheal Airway into Trachea, Via Natural or Artificial Opening (ICD-10-PCS; 2020-02-11)
PROC: 4A033R1 Measurement of Arterial Saturation, Peripheral, Percutaneous Approach (ICD-10-PCS; 2020-02-11)
PROC: 5A09357 Assistance with Respiratory Ventilation, Less than 24 Consecutive Hours, Continuous Positive Airway Pressure (ICD-10-PCS; 2020-02-13)
PROC: 5A09357 Assistance with Respiratory Ventilation, Less than 24 Consecutive Hours, Continuous Positive Airway Pressure (ICD-10-PCS; 2020-02-14)
PROC: 5A09357 Assistance with Respiratory Ventilation, Less than 24 Consecutive Hours, Continuous Positive Airway Pressure (ICD-10-PCS; 2020-02-15)
DX: J96.01 Acute respiratory failure with hypoxia (principal); G93.41 Metabolic encephalopathy; J44.1 Chronic obstructive pulmonary disease with (acute) exacerbation; Z68.42 Body mass index [BMI] 45.0-49.9, adult; R57.9 Shock, unspecified; N39.0 Urinary tract infection, site not specified; R65.10 Systemic inflammatory response syndrome (SIRS) of non-infectious origin without acute organ dysfunction; E66.01 Morbid (severe) obesity due to excess calories; E11.9 Type 2 diabetes mellitus without complications; I10 Essential (primary) hypertension; Z20.828 Contact with and (suspected) exposure to other viral communicable diseases; K46.9 Unspecified abdominal hernia without obstruction or gangrene; Z79.84 Long term (current) use of oral hypoglycemic drugs; Z79.899 Other long term (current) drug therapy; Z79.2 Long term (current) use of antibiotics; Z90.49 Acquired absence of other specified parts of digestive tract; Z98.891 History of uterine scar from previous surgery; N18.9 Chronic kidney disease, unspecified; R79.81 Abnormal blood-gas level
CPT/HCPCS: 36415; 36600; 70450; 71045; 80048; 80053; 80307; 80320; 81001; 82140; 82728; 82803; 82947; 82962; 83615; 83735; 83880; 84100; 84145; 84443; 84484; 85007; 85025; 85379; 85610; 85730; 86140; 87040; 87086; 87205; 93005; 94002; 94640; 94660; 94760; G0378; G0480; J0330; J0692; J1650; J1815; J1940; J2250; J2920; J2930; J3370; J7030; J7040; U0003-CS

== ENCOUNTER 2020-03-20 18:34 | Inpatient (IN) | payer OTHER, SELFPAY ==
[2020-03-20 19:25] LABS: Basophils # (Auto) 0.1 K/mm3 (0.0-0.1); Basophils % (Auto) 0.6 % (0.0-1.8); Eosinophils % (Auto) 9.2 % (0.0-4.3); Hematocrit 40.2 % (30.3-42.9); Hemoglobin 12.9 gm/dl (10.1-14.3); Lymphocytes # (Auto) 2.9 K/mm3 (1.2-5.4); Lymphocytes % (Auto) 27.1 % (13.4-35.0); Mean Corpuscular HGB Conc 32 % (30-34); Mean Corpuscular Volume 88 fl (79-97); Monocytes # (Auto) 0.8 K/mm3 (0.0-0.8); Monocytes % (Auto) 7.8 % (0.0-7.3); Platelet Count 243 K/mm3 (140-440); Red Blood Count 4.57 M/mm3 (3.65-5.03); Red Cell Distribution Width 16.7 % (13.2-15.2)
[2020-03-20] MEDS ORDERED: IPRATROPIUM 0.02% NEBU 2.5 ML IH ONE (19:38)
[2020-03-20] MEDS ORDERED: ALBUTEROL 2.5 MG/3 ML NEBU IH ONE (19:38)
[2020-03-20] MEDS ORDERED: MAGNESIUM SULFATE 2 GM/50 ML BAG IV ONE (19:39)
[2020-03-20] MEDS ORDERED: methylPREDNISolone Sod Succinate 125 MG/2 ML INJ IV ONE (19:39)
[2020-03-20 19:44] LABS: BUN/Creatinine Ratio 22; Blood Urea Nitrogen 24 mg/dL (7-17); Calcium 9.3 mg/dL (8.4-10.2); Hemolysis Index 18
--- NOTE | 2020-03-20 20:09 | Emergency Department Report ---
ED Shortness of Breath HPI - General Chief Complaint: Dyspnea/Respdistress Stated Complaint: HARDY, COUGHING Time Seen by Provider: 03/20/20 19:29 Source: patient Mode of arrival: Ambulatory Limitations: No Limitations - History of Present Illness Initial Comments: 59-year old female with a past medical history of COPD currently not on oxygen but recent admissions for hypercapnic respiratory failure requiring intubation, suspected sleep apnea but not currently on CPAP, obesity, diabetes, and hypertension presents to the hospital complains of shortness of breath the last 4 to 5 days. Patient having a cough nonproductive white sputum. Patient is hav ing worsening dyspnea on exertion. Patient has had several negative tests for coronavirus the last tested in February. She denies fever, loss of sense of taste or smell, calf tenderness, leg edema. Patient states she is awaiting delivery of sleep apnea testing device to the home - Related Data Previous Rx's Medication Instructions Recorded Last Taken Type Acetaminophen [Acetaminophen TAB] 1 tab PO Q4H PRN #15 tablet 07/03/19 Unknown Rx Gabapentin 300 mg PO Q8H #90 capsule 01/22/20 Unknown Rx Lisinopril/Hydrochlorothiazide 1 tab PO QDAY 30 Days #30 tab 01/22/20 Unknown Rx [Zestoretic 20-25 mg] ProAir HFA Inhaler 2 inh INHALATION QID PRN #1 01/22/20 Unknown Rx amLODIPine 10 mg PO QDAY #30 tablet 01/22/20 Unknown Rx metFORMIN 1,000 mg PO BID 30 Days #60 01/22/20 Unknown Rx Furosemide [Lasix TAB] 20 mg PO QDAY PRN #14 tablet 02/15/20 Unknown Rx Allergies Allergy/AdvReac Type Severity Reaction Status Date / Time prochlorperazine Allergy Unknown Verified 01/17/20 14:27 [From Compazine] ED Review of Systems ROS: Stated complaint: HARDY, COUGHING Other details as noted in HPI Comment: All other systems reviewed and negative ED Past Medical Hx - Past Medical History Hx Hypertension: Yes Hx Heart Attack/AMI: No Hx Diabetes: Yes Hx Liver Disease: No Hx Renal Disease: No Hx Sickle Cell Disease: No Hx Seizures: No Hx Asthma: No Hx COPD: Yes - Surgical History Hx Pacemaker: No Hx Internal Defibrillator: No Hx Appendectomy: Yes Additional Surgical History: c sections x 2. abd hernia x 5. appendectomy - Social History Smoking Status: Former Smoker - Medications Home Medications: Home Medications Medication Instructions Recorded Confirmed Last Taken Type Acetaminophen [Acetaminophen TAB] 1 tab PO Q4H PRN #15 tablet 07/03/19 02/27/20 Unknown Rx Gabapentin 300 mg PO Q8H #90 capsule 01/22/20 02/27/20 Unknown Rx Lisinopril/Hydrochlorothiazide 1 tab PO QDAY 30 Days #30 tab 01/22/20 02/27/20 Unknown Rx [Zestoretic 20-25 mg] ProAir HFA Inhaler 2 inh INHALATION QID PRN #1 01/22/20 02/27/20 Unknown Rx amLODIPine 10 mg PO QDAY #30 tablet 01/22/20 02/27/20 Unknown Rx metFORMIN 1,000 mg PO BID 30 Days #60 01/22/20 02/27/20 Unknown Rx Furosemide [Lasix TAB] 20 mg PO QDAY PRN #14 tablet 02/15/20 02/27/20 Unknown Rx ED Physical Exam - General Limitations: No Limitations ED Course Vital Signs 03/20/20 18:41 Temperature 98.0 F Pulse Rate 104 H Respiratory 22 Rate Blood Pressure 162/80 O2 Sat by Pulse 81 L Oximetry ED Medical Decision Making - Lab Data Result diagrams: 03/20/20 19:01 03/20/20 19:01 Lab Results 03/20/20 03/20/20 03/20/20 Range/Units 19:01 19:01 19:09 WBC 10.6 (4.5-11.0) K/mm3 RBC 4.57 (3.65-5.03) M/mm3 Hgb 12.9 (10.1-14.3) gm/dl Hct 40.2 (30.3-42.9) % MCV 88 (79-97) fl MCH 28 (28-32) pg MCHC 32 (30-34) % RDW 16.7 H (13.2-15.2) % Plt Count 243 (140-440) K/mm3 Lymph % (Auto) 27.1 (13.4-35.0) % [place] % (Auto) 7.8 H (0.0-7.3) % Eos % (Auto) 9.2 H (0.0-4.3) % Baso % (Auto) 0.6 (0.0-1.8) % Lymph # 2.9 (1.2-5.4) K/mm3 [place] # 0.8 (0.0-0.8) K/mm3 Eos # 1.0 H (0.0-0.4) K/mm3 Baso # 0.1 (0.0-0.1) K/mm3 Seg Neutrophils % 55.3 (40.0-70.0) % Seg Neutrophils # 5.9 (1.8-7.7) K/mm3 ABG pH (7.350-7.450) pH Units ABG pCO2 mm Hg ABG pO2 (80.0-90.0) mm Hg ABG HCO3 (20.0-26.0) mmol/L ABG O2 Saturation (95.0-99.0) % ABG O2 Content (0.0-44) ABG Base Excess (-2.0-3.0) mmol/L ABG Hemoglobin (12.0-16.0) gm/dl ABG Carboxyhemoglobin (0.0-5.0) % ABG Methemoglobin (0.0-1.5) % Oxyhemoglobin (95.0-99.0) % FiO2 % Sodium 140 (137-145) mmol/L Potassium 4.9 (3.6-5.0) mmol/L Chloride 99.5 (98-107) mmol/L Carbon Dioxide 26 (22-30) mmol/L Anion Gap 19 mmol/L BUN 24 H (7-17) mg/dL Creatinine 1.1 (0.6-1.2) mg/dL Estimated GFR > 60 ml/min BUN/Creatinine Ratio 22 % Glucose 104 H (65-100) mg/dL Calcium 9.3 (8.4-10.2) mg/dL Troponin T < 0.010 (0.00-0.029) ng/mL NT-Pro-B Natriuret Pep 140.0 (0-900) pg/mL 03/20/20 Range/Units 21:43 WBC (4.5-11.0) K/mm3 RBC (3.65-5.03) M/mm3 Hgb (10.1-14.3) gm/dl Hct (30.3-42.9) % MCV (79-97) fl MCH (28-32) pg MCHC (30-34) % RDW (13.2-15.2) % Plt Count (140-440) K/mm3 Lymph % (Auto) (13.4-35.0) % [place] % (Auto) (0.0-7.3) % Eos % (Auto) (0.0-4.3) % Baso % (Auto) (0.0-1.8) % Lymph # (1.2-5.4) K/mm3 [place] # (0.0-0.8) K/mm3 Eos # (0.0-0.4) K/mm3 Baso # (0.0-0.1) K/mm3 Seg Neutrophils % (40.0-70.0) % Seg Neutrophils # (1.8-7.7) K/mm3 ABG pH 7.243 L (7.350-7.450) pH Units ABG pCO2 73.4 mm Hg ABG pO2 81.6 (80.0-90.0) mm Hg ABG HCO3 31.0 H (20.0-26.0) mmol/L ABG O2 Saturation 94.6 L (95.0-99.0) % ABG O2 Content 16.4 (0.0-44) ABG Base Excess 1.7 (-2.0-3.0) mmol/L ABG Hemoglobin 12.7 (12.0-16.0) gm/dl ABG Carboxyhemoglobin 2.9 (0.0-5.0) % ABG Methemoglobin 0.6 (0.0-1.5) % Oxyhemoglobin 91.3 L (95.0-99.0) % FiO2 36 % Sodium (137-145) mmol/L Potassium (3.6-5.0) mmol/L Chloride (98-107) mmol/L Carbon Dioxide (22-30) mmol/L Anion Gap mmol/L BUN (7-17) mg/dL Creatinine (0.6-1.2) mg/dL Estimated GFR ml/min BUN/Creatinine Ratio % Glucose (65-100) mg/dL Calcium (8.4-10.2) mg/dL Troponin T (0.00-0.029) ng/mL NT-Pro-B Natriuret Pep (0-900) pg/mL - EKG Data -: EKG Interpreted by Nm EKG shows normal: sinus rhythm, ST-T waves (no stemi) Rate: tachycardia (106) - Radiology Data Radiology results: report reviewed XR chest 1V ap INDICATION / CLINICAL INFORMATION: Chest Pain COMPARISON: 02/26/2020 FINDINGS: SUPPORT DEVICES: None. HEART / MEDIASTINUM: Prominent but stable. LUNGS / PLEURA: Lungs are clear. Costophrenic sulci are sharp. No pneumothorax. ADDITIONAL FINDINGS: No significant additional findings. IMPRESSION: 1. Persistent cardiomegaly without acute findings. - Medical Decision Making Patient presents to the hospital with significant hypoxia noted to have room air saturation of 61% prior to administration of supplemental oxygen. Patient received bronchodilators, steroids, and magnesium with some improvement in wheezing. ABG reveals respiratory acidosis. BiPAP initiated. Patient be admitted to the hospital service for further treatment Critical Care Time: Yes Critical care time in (mins) excluding proc time.: 35 Critical care attestation.: If time is entered above; I have spent that time in minutes in the direct care of this critically ill patient, excluding procedure time. ED Disposition Clinical Impression: COPD exacerbation, Hypoxia, Acute respiratory acidosis Disposition: 09 OP ADMIT IP TO THIS HOSP Is pt being admited?: Yes Condition: Stable Time of Disposition: 22:20 (Dr. Siddiqi/hosp)
--- NOTE | 2020-03-20 20:11 | XRay Report ---
XR chest 1V ap INDICATION / CLINICAL INFORMATION: Chest Pain COMPARISON: 02/26/2020 FINDINGS: SUPPORT DEVICES: None. HEART / MEDIASTINUM: Prominent but stable. LUNGS / PLEURA: Lungs are clear. Costophrenic sulci are sharp. No pneumothorax. ADDITIONAL FINDINGS: No significant additional findings. IMPRESSION: 1. Persistent cardiomegaly without acute findings. Signer Name: Jeffry Angulo MD Signed: 03/20/2020 8:06 PM Workstation Name: [id number]
[2020-03-20 21:50] LABS: ABG Base Excess 1.7 mmol/L (-2.0-3.0); ABG Methemoglobin 0.6 % (0.0-1.5); ABG Oxygen Saturation 94.6 % (95.0-99.0); ABG PCO2 73.4 mm Hg; ABG PH 7.243 pH Units (7.350-7.450); ABG PO2 81.6 mm Hg (80.0-90.0)
[2020-03-20] MEDS ORDERED: DEXTROSE 50% IN WATER (25GM) 50 ML SYRINGE IV PRN (23:37)
[2020-03-20] MEDS ORDERED: INSULIN REGULAR, HUMAN 100 UNIT/ML 3ML VIAL SUB-Q SCH (23:45)
[2020-03-21] MEDS: methylPREDNISolone Sod Succinate 40 MG/1 ML INJ IV SCH ×4 (00:30→21:41)
[2020-03-21] MEDS: HEPARIN 5,000 UNIT/1 ML VIAL SUB-Q SCH ×4 (00:30→21:42)
--- NOTE | 2020-03-21 06:24 | History and Physical Report ---
History of Present Illness Date of examination: 03/20/20 Date of admission: 03/20/20 22:20 Chief complaint: Chief complaint is shortness of breath History of present illness: History of presenting illness, patient is a 59-year-old female who has been having shortness of breath going on for about 4 to 5 days, symptoms became progressively worse in the last 24 to 48 hours and was associated with nonproductive cough. There is no history of fever, chills, chest pain, nausea or vomiting. Past History Past Medical History: COPD, diabetes, hypertension Past Surgical History: appendectomy, , hernia repair Social history: no significant social history Family history: no significant family history Medications and Allergies Allergies Allergy/AdvReac Type Severity Reaction Status Date / Time prochlorperazine Allergy Unknown Verified 01/17/20 14:27 [From Compazine] Home Medications Medication Instructions Recorded Confirmed Last Taken Type Acetaminophen [Acetaminophen TAB] 1 tab PO Q4H PRN #15 tablet 07/03/19 03/20/20 Unknown Rx Gabapentin 300 mg PO Q8H #90 capsule 01/22/20 03/20/20 Unknown Rx Lisinopril/Hydrochlorothiazide 1 tab PO QDAY 30 Days #30 tab 01/22/20 03/20/20 Unknown Rx [Zestoretic 20-25 mg] ProAir HFA Inhaler 2 inh INHALATION QID PRN #1 01/22/20 03/20/20 Unknown Rx amLODIPine 10 mg PO QDAY #30 tablet 01/22/20 03/20/20 Unknown Rx metFORMIN 1,000 mg PO BID 30 Days #60 01/22/20 03/20/20 Unknown Rx Furosemide [Lasix TAB] 20 mg PO QDAY PRN #14 tablet 02/15/20 03/20/20 Unknown Rx Active Meds: Active Medications Albuterol/Ipratropium (Duoneb *Not For Prn Use*) 1 ampul IH QIDRT [facility] [place] Dextrose (D50w (25gm) Syringe) 0 ml IV Q30MIN PRN; Protocol PRN Reason: Hypoglycemia Heparin Sodium (Porcine) (Heparin) 5,000 unit SUB-Q Q8HR [facility] Last Admin: 03/21/20 05:23 Dose: 5,000 unit Documented by: Levofloxacin/Dextrose (Levaquin 750mg/150ml) 750 mg in 150 mls @ 100 mls/hr IV Q24HR RICHARD; Protocol Insulin Human Regular (Humulin R) 0 unit SUB-Q AC RICHARD; Protocol Insulin Human Regular (Humulin R) 0 unit SUB-Q QHS RICHARD; Protocol Methylprednisolone Sodium Succinate (Solu-Medrol) 60 mg IV Q8HR [facility] [place] Last Admin: 03/21/20 05:23 Dose: 60 mg Documented by: Review of Systems Constitutional: weakness, no weight loss, no weight gain, no fever, no chills, no sweats Eyes: bilateral: other (NO BILATERAL EYE SYMPTOM) Ears, nose, mouth and throat: no ear pain, no ear discharge, no decreased heari ng, no nasal congestion, no nasal discharge, no mouth pain, no dysphagia, no hoarseness, no sore throat, no swelling in mouth Breasts: deferred Cardiovascular: shortness of breath, no chest pain, no orthopnea, no palpitations, no rapid/irregular heart beat, no edema, no syncope, no lightheadedness, no claudication, no phlebitis, no high blood pressure Respiratory: cough, shortness of breath, dyspnea on exertion, wheezing, no hemoptysis, no congestion, no pleurisy, no pain Gastrointestinal: no abdominal pain, no nausea, no vomiting, no diarrhea, no constipation, no change in bowel habits, no hematemesis, no melena, no hematochezia, no loss of appetite, no early satiety, no heartburn Genitourinary Female: no Menstruation: postmenopausal Rectal: no pain, no itching, no flatulence Musculoskeletal: no neck stiffness, no neck pain, no shooting arm pain, no arm numbness/tingling, no low back pain, no shooting leg pain, no leg numbness/tingling, no morning stiffness, no muscle weakness, no muscle cramps, no myalgias Integumentary: no rash, no pruritis, no redness, no sores, no wounds, no jaundice, no lesions, no depigmentation Neurological: weakness, no parathesias, no numbness, no tingling, no seizures, no syncope, no tremors, no vertigo, no headaches, no migraines, no convulsions, no aphasia, no change in speech, no confusion, no loss of vision Psychiatric: no anxiety, no memory loss, no sleep disturbances, no insomnia, no change in appetite, no depression Endocrine: no cold intolerance, no polyphagia, no polydipsia, no polyuria, no nocturia, no excessive sweating, no flushing, no proptosis, no thyroid mass, no palpatations, no high blood sugars, no low blood sugars Hematologic/Lymphatic: no easy bruising, no easy bleeding, no lymphadenopathy Allergic/Immunologic: no urticaria, no persistent infections Exam - Constitutional Vitals: Temp Pulse Resp BP Pulse Ox 97.7 F 92 H 18 185/98 97 03/21/20 04:21 03/21/20 04:21 03/21/20 04:21 03/21/20 04:21 03/21/20 04:21 General appearance: Present: no acute distress - EENT Eyes: Present: PERRL, EOM intact ENT: hearing intact, clear oral mucosa, dentition normal - Neck Neck: Present: supple, normal ROM - Respiratory Respiratory effort: normal - Cardiovascular Rhythm: regular Heart Sounds: Present: S1 & S2. Absent: gallop, systolic murmur, diastolic murmur, click - Extremities Extremities: no ischemia, No edema Peripheral Pulses: within normal limits - Abdominal General gastrointestinal: Present: soft, non-tender, non-distended, normal bowel sounds. Absent: tender, distended, rigid, hepatomegaly, splenomegaly, mass Female genitourinary: Present: deferred - Rectal Rectal Exam: deferred - Integumentary Integumentary: Present: clear, warm, dry - Musculoskeletal Musculoskeletal: strength equal bilaterally - Psychiatric Psychiatric: appropriate mood/affect HEART Score - HEART Score Risk factors: 1-2 risk factors Troponin: Troponin T < 0.010 ng/mL (0.00-0.029) 03/21/20 00:19 Troponin: < normal limit - Critical Actions Critical Actions: 0-3 pts:0.9-1.7%risk of adverse cardiac event.Candidate for discharge Results - Labs CBC & Chem 7: 03/20/20 19:01 03/20/20 19:01 Labs: Laboratory Last Values WBC 10.6 K/mm3 (4.5-11.0) 03/20/20 19: RBC 4.57 M/mm3 (3.65-5.03) 03/20/20 19: Hgb 12.9 gm/dl (10.1-14.3) 03/20/20 19:01 Hct 40.2 % (30.3-42.9) 03/20/20 19: MCV 88 fl (79-97) 03/20/20 19: MCH 28 pg (28-32) 03/20/20 19:01 MCHC 32 % (30-34) 03/20/20 19:01 RDW 16.7 % (13.2-15.2) H 03/20/20 19:01 Plt Count 243 K/mm3 (140-440) 03/20/20 19:01 Lymph % (Auto) 27.1 % (13.4-35.0) 03/20/20 19:01 [place] % (Auto) 7.8 % (0.0-7.3) H 03/20/20 19: Eos % (Auto) 9.2 % (0.0-4.3) H 03/20/20 19:01 Baso % (Auto) 0.6 % (0.0-1.8) 03/20/20 19:01 Lymph # 2.9 K/mm3 (1.2-5.4) 03/20/20 19:01 [place] # 0.8 K/mm3 (0.0-0.8) 03/20/20 19:01 Eos # 1.0 K/mm3 (0.0-0.4) H 03/20/20 19:01 Baso # 0.1 K/mm3 (0.0-0.1) 03/20/20 19: Seg Neutrophils % 55.3 % (40.0-70.0) 03/20/20 19: Seg Neutrophils # 5.9 K/mm3 (1.8-7.7) 03/20/20 19:01 ABG pH 7.243 pH Units (7.350-7.450) L 03/20/20 21:43 ABG pCO2 73.4 mm Hg 03/20/20 21:43 ABG pO2 81.6 mm Hg (80.0-90.0) 03/20/20 21:43 ABG HCO3 31.0 mmol/L (20.0-26.0) H 03/20/20 21:43 ABG O2 Saturation 94.6 % (95.0-99.0) L 03/20/20 21:43 ABG O2 Content 16.4 (0.0-44) 03/20/20 21:43 ABG Base Excess 1.7 mmol/L (-2.0-3.0) 03/20/20 21:43 ABG Hemoglobin 12.7 gm/dl (12.0-16.0) 03/20/20 21:43 ABG Carboxyhemoglobin 2.9 % (0.0-5.0) 03/20/20 21:43 ABG Methemoglobin 0.6 % (0.0-1.5) 03/20/20 21:43 Oxyhemoglobin 91.3 % (95.0-99.0) L 03/20/20 21:43 FiO2 36 % 03/20/20 21:43 Sodium 140 mmol/L (137-145) 03/20/20 19:01 Potassium 4.9 mmol/L (3.6-5.0) 03/20/20 19:01 Chloride 99.5 mmol/L (98-107) 03/20/20 19:01 Carbon Dioxide 26 mmol/L (22-30) 03/20/20 19:01 Anion Gap 19 mmol/L 03/20/20 19:01 BUN 24 mg/dL (7-17) H 03/20/20 19:01 Creatinine 1.1 mg/dL (0.6-1.2) 03/20/20 19:01 Estimated GFR > 60 ml/min 03/20/20 19:01 BUN/Creatinine Ratio 22 % 03/20/20 19:01 Glucose 104 mg/dL (65-100) H 03/20/20 19:01 Calcium 9.3 mg/dL (8.4-10.2) 03/20/20 19:01 Troponin T < 0.010 ng/mL (0.00-0.029) 03/21/20 00:19 NT-Pro-B Natriuret Pep 140.0 pg/mL (0-900) 03/20/20 19:09 Segura/IV: IV Catheter Type [right hand] Peripheral IV Assessment and Plan - Patient Problems (1) Acute respiratory acidosis Current Visit: Yes Status: Acute Plan to address problem: 1. DUONEBULIZER 2. I.V SOLUMEDROL (2) COPD exacerbation Current Visit: Yes Status: Acute Plan to address problem: 1. DUONEBULIZER 2. I.V SOLUMEDROL 3. I.V LEVAQUIN ANTIBIOTIC 4. OXYGEN PER RESPIRATORY CARE (3) Hypoxia Current Visit: Yes Status: Acute Plan to address problem: OXYGEN PER RESPIRATORY CARE
[2020-03-21] MEDS: INSULIN REGULAR, HUMAN 100 UNIT/ML 3ML VIAL SUB-Q SCH ×3 (08:51→17:23)
[2020-03-21] MEDS: IPRATROPIUM/ALBUTEROL SULFATE 3 ML AMPUL.NEB IH SCH ×4 (09:40→20:11)
[2020-03-21] MEDS: amLODIPine 10 MG TAB PO SCH (12:24)
[2020-03-21] MEDS: LISINOPRIL 10 MG TAB PO SCH (12:24)
--- NOTE | 2020-03-21 15:55 | Event Note ---
Date: 03/21/20
[2020-03-21] MEDS ORDERED: INSULIN REGULAR, HUMAN 100 UNIT/ML 3ML VIAL SUB-Q SCH (22:00)
[2020-03-22] MEDS: methylPREDNISolone Sod Succinate 40 MG/1 ML INJ IV SCH ×2 (05:09→14:13)
[2020-03-22] MEDS: HEPARIN 5,000 UNIT/1 ML VIAL SUB-Q SCH ×3 (05:09→22:53)
[2020-03-22] MEDS: IPRATROPIUM/ALBUTEROL SULFATE 3 ML AMPUL.NEB IH SCH ×3 (08:01→19:41)
[2020-03-22] MEDS: hydrALAZINE 25 MG TAB PO SCH ×3 (10:28→22:53)
[2020-03-22] MEDS: amLODIPine 10 MG TAB PO SCH (10:28)
[2020-03-22] MEDS: LISINOPRIL 10 MG TAB PO SCH ×2 (10:28→22:53)
[2020-03-22] MEDS: INSULIN REGULAR, HUMAN 100 UNIT/ML 3ML VIAL SUB-Q SCH ×3 (10:29→17:38)
--- NOTE | 2020-03-22 14:06 | Progress Note ---
Assessment and Plan Assessment and plan: 59-year-old female with a medical history of COPD admitted with chief complaint of shortness of breath and cough. She was noted to have respiratory acidosis and hypoxia and was admitted. Patient has had several negative tests for coronavirus the last tested in February. She denies fever, loss of sense of taste or smell, calf tenderness, leg edema. Patient states she is awaiting delivery of sleep apnea testing device to the home 03/22. Patient seen and examined bedside this morning. Has productive cough. On antibiotics and steroids. - Patient Problems (1) Acute respiratory acidosis Current Visit: Yes Status: Acute Plan to address problem: From COPD exacerbation Continue oxygen supplementation (2) COPD exacerbation Current Visit: Yes Status: Acute Plan to address problem: Steroids, bronchodilators and oxygen supplementation as needed Pulmonology follow-up at discharge (3) Acute respiratory failure with hypoxia Current Visit: No Status: Acute Plan to address problem: Continue oxygen supplementation (4) DVT prophylaxis Current Visit: No Status: Acute Plan to address problem: Heparin 3 times daily History Interval history: Patient seen and examined at bedside this morning. She has productive cough and is getting nebulizer. On steroids and antibiotics. Hospitalist Physical - Constitutional Vitals: Temp Pulse Resp BP Pulse Ox 97.7 F 94 H 16 179/90 96 03/22/20 05:52 03/22/20 08:01 03/22/20 08:01 03/22/20 05:52 03/22/20 09:47 General appearance: Present: no acute distress - EENT Eyes: Present: PERRL - Respiratory Respiratory: bilateral: wheezing - Cardiovascular Heart Sounds: Present: S1 & S2 - Abdominal General gastrointestinal: soft, non-tender, normal bowel sounds - Psychiatric Psychiatric: appropriate mood/affect - Neurologic Neurologic: CNII-XII intact HEART Score - HEART Score Risk factors: 1-2 risk factors Troponin: Troponin T < 0.010 ng/mL (0.00-0.029) 03/21/20 00:19 Troponin: < normal limit - Critical Actions Critical Actions: 0-3 pts:0.9-1.7%risk of adverse cardiac event.Candidate for discharge Results - Labs CBC & Chem 7: 03/20/20 19:01 03/20/20 19:01 Labs: Laboratory Last Values WBC 10.6 K/mm3 (4.5-11.0) 03/20/20 19:01 RBC 4.57 M/mm3 (3.65-5.03) 03/20/20 19:01 Hgb 12.9 gm/dl (10.1-14.3) 03/20/20 19: Hct 40.2 % (30.3-42.9) 03/20/20 19: MCV 88 fl (79-97) 03/20/20 19: MCH 28 pg (28-32) 03/20/20 19: MCHC 32 % (30-34) 03/20/20 19:01 RDW 16.7 % (13.2-15.2) H 03/20/20 19:01 Plt Count 243 K/mm3 (140-440) 03/20/20 19: Lymph % (Auto) 27.1 % (13.4-35.0) 03/20/20 19: [place] % (Auto) 7.8 % (0.0-7.3) H 03/20/20 19: Eos % (Auto) 9.2 % (0.0-4.3) H 03/20/20 19: Baso % (Auto) 0.6 % (0.0-1.8) 03/20/20 19: Lymph # 2.9 K/mm3 (1.2-5.4) 03/20/20 19: [place] # 0.8 K/mm3 (0.0-0.8) 03/20/20 19:01 Eos # 1.0 K/mm3 (0.0-0.4) H 03/20/20 19: Baso # 0.1 K/mm3 (0.0-0.1) 03/20/20 19: Seg Neutrophils % 55.3 % (40.0-70.0) 03/20/20 19: Seg Neutrophils # 5.9 K/mm3 (1.8-7.7) 03/20/20 19: ABG pH 7.243 pH Units (7.350-7.450) L 03/20/20 21:43 ABG pCO2 73.4 mm Hg 03/20/20 21:43 ABG pO2 81.6 mm Hg (80.0-90.0) 03/20/20 21:43 ABG HCO3 31.0 mmol/L (20.0-26.0) H 03/20/20 21:43 ABG O2 Saturation 94.6 % (95.0-99.0) L 03/20/20 21:43 ABG O2 Content 16.4 (0.0-44) 03/20/20 21:43 ABG Base Excess 1.7 mmol/L (-2.0-3.0) 03/20/20 21:43 ABG Hemoglobin 12.7 gm/dl (12.0-16.0) 03/20/20 21:43 ABG Carboxyhemoglobin 2.9 % (0.0-5.0) 03/20/20 21:43 ABG Methemoglobin 0.6 % (0.0-1.5) 03/20/20 21:43 Oxyhemoglobin 91.3 % (95.0-99.0) L 03/20/20 21:43 FiO2 36 % 03/20/20 21:43 Sodium 140 mmol/L (137-145) 03/20/20 19:01 Potassium 4.9 mmol/L (3.6-5.0) 03/20/20 19:01 Chloride 99.5 mmol/L (98-107) 03/20/20 19:01 Carbon Dioxide 26 mmol/L (22-30) 03/20/20 19:01 Anion Gap 19 mmol/L 03/20/20 19:01 BUN 24 mg/dL (7-17) H 03/20/20 19:01 Creatinine 1.1 mg/dL (0.6-1.2) 03/20/20 19:01 Estimated GFR > 60 ml/min 03/20/20 19:01 BUN/Creatinine Ratio 22 % 03/20/20 19:01 Glucose 104 mg/dL (65-100) H 03/20/20 19:01 POC Glucose 239 (70-105) H 03/22/20 13:25 Calcium 9.3 mg/dL (8.4-10.2) 03/20/20 19:01 Troponin T < 0.010 ng/mL (0.00-0.029) 03/21/20 00:19 NT-Pro-B Natriuret Pep 140.0 pg/mL (0-900) 03/20/20 19:09 - Diagnostic Impressions Diagnostic Impressions: Echocardiogram 03/21/20 10:36 Transthoracic Echocardiogram Indication: Dyspnea BP: 179/90 HR: 95 Conclusions *Global left ventricular systolic function is normal. *The estimated ejection fraction is 65-70%. *Mild concentric left ventricular hypertrophy is observed. *The left atrium is mildly dilated. *The aortic valve leaflets are moderately thickened with no significant aortic stenosis. *The mitral valve leaflets are moderately thickened with no significant mitral stenosis. *There is trace tricuspid regurgitation. Findings Left Ventricle: The left ventricular chamber size is normal. Mild concentric left ventricular hypertrophy is observed. Global left ventricular systolic function is normal. The estimated ejection fraction is 65-70%. Left Atrium: The left atrium is mildly dilated. Right Ventricle: The right ventricular cavity size is normal. Right Atrium: The right atrial cavity size is normal. Aortic Valve: The aortic valve leaflets are moderately thickened. There is trace of aortic regurgitation. There is no evidence of aortic stenosis. Mitral Valve: The mitral valve leaflets are moderately thickened. There is trace of mitral regurgitation. There is no evidence of mitral stenosis. Tricuspid Valve: There is trace tricuspid regurgitation. No pulmonary hypertension is noted. Pulmonic Valve: There is trace pulmonic regurgitation. Pericardium: There is no pericardial effusion. Aorta: There is no dilatation of the ascending aorta. There is no dilatation of the aortic root. Venous: The inferior vena cava appears normal in size. Measurements Chambers 2D Name Value Normal Range IVSd (2D) 1.26 cm (0.6 - 1.1) LVPWd (2D) 1.23 cm (0.6 - 1.1) LVIDd (2D) 4.47 cm (3.7 - 5.6) LVIDs (2D) 2.95 cm (2 - 3.8) LV FS (2D) 33.91 % - EF Teichholz (2D) 62.97 % - Ao root diameter (2D) 2.64 cm (2 - 3.7) Volumes/Mass Name Value Normal Range LA ESV SP 4CH (A/L) 31.33 ml - LA ESV SP 2CH (A/L) 33.4 ml - LA ESV BP (A/L) 32.45 ml - LA ESV BP (A/L) index 16.15 ml/m2 - LA ESV SP 4CH (MOD) 29.28 ml - LA ESV SP 2CH (MOD) 32.77 ml - LA ESV BP (MOD) 30.94 ml - LA ESV BP (MOD) index 15.39 ml/m2 - Diastolic/Systolic Function Name Value Normal Range MV E-wave Vmax 1.08 m/sec - MV deceleration time 196.16 msec - MV A-wave Vmax 1.27 m/sec - MV E:A ratio 0.85 ratio - Aortic Valve Name Value Normal Range AV Vmax 2.16 m/sec - AV VTI 38.14 cm - AV peak gradient 18.6 mmHg - AV mean gradient 8.77 mmHg - LVOT diameter 2.05 cm - LVOT Vmax 1.26 m/sec - LVOT VTI 27.76 cm - LVOT peak gradient 6.35 mmHg - LVOT mean gradient 3.59 mmHg - SV LVOT 91.22 ml - KIRSTY (continuity Vmax) 1.92 cm2 - KIRSTY (continuity VTI) 2.39 cm2 - Mitral Valve Name Value Normal Range MV Vmax 1.3 m/sec - MV VTI 32.71 cm - MV peak gradient 6.71 mmHg - MV mean gradient 4.12 mmHg - MVA (continuity VTI) 2.79 cm2 - Tricuspid Valve Name Value Normal Range IVC diameter 1.86 cm (1.2 - 2.3) Segura/IV: Voiding Method Toilet IV Catheter Type [right hand] Peripheral IV Active Medications - Current Medications Current Medications: Generic Name Dose Route Start Last Admin Trade Name Freq PRN Reason Stop Dose Admin Albuterol/Ipratropium 1 ampul 03/22/20 14:00 03/22/20 13:54 Duoneb *Not For Prn Use* IH 1 ampul TIDRT RICHARD Administration Amlodipine Besylate 10 mg 03/21/20 11:00 03/22/20 10:28 Amlodipine PO 10 mg QDAY RICHARD Administration Dextrose 0 ml 03/20/20 23:37 D50w (25gm) Syringe IV Q30MIN PRN Hypoglycemia Protocol Heparin Sodium (Porcine) 5,000 unit 03/20/20 23:45 03/22/20 05:09 Heparin SUB-Q 5,000 unit Q8HR RICHARD Administration Hydralazine HCl 50 mg 03/22/20 08:00 03/22/20 10:28 Apresoline PO 50 mg Q8HR RICHARD Administration Levofloxacin/Dextrose 750 mg in 150 mls @ 100 mls/hr 03/21/20 10:00 03/22/20 10:31 Levaquin 750mg/150ml IV 03/25/20 12:00 100 mls/hr Q24HR RICHARD Administration Protocol Insulin Human Regular 0 unit 03/21/20 07:30 03/22/20 10:29 Humulin R SUB-Q 2 unit AC RICHARD Administration Protocol Insulin Human Regular 0 unit 03/21/20 22:00 03/21/20 21:45 Humulin R SUB-Q 3 unit QHS RICHARD Administration Protocol Lisinopril 10 mg 03/21/20 11:00 03/22/20 10:28 Zestril PO 10 mg QDAY RICHARD Administration Methylprednisolone Sodium Succinate 60 mg 03/20/20 23:00 03/22/20 05:09 Solu-Medrol IV 60 mg Q8HR RICHARD Administration
[2020-03-22] MEDS ORDERED: methylPREDNISolone Sod Succinate 125 MG/2 ML INJ IV SCH (17:00)
[2020-03-22] MEDS ORDERED: methylPREDNISolone Sod Succinate 40 MG/1 ML INJ IV SCH (22:00)
[2020-03-22] MEDS: methylPREDNISolone Sod Succinate 125 MG/2 ML INJ IV SCH (22:52)
[2020-03-23] MEDS: INSULIN LISPRO 100 UNIT/ML VIAL 3 mL SUB-Q SCH ×5 (00:22→13:18)
[2020-03-23 01:30] LABS: Basophils % (Auto) 0.2 % (0.0-1.8); Hematocrit 39.7 % (30.3-42.9); Hemoglobin 12.7 gm/dl (10.1-14.3); Lymphocytes # (Auto) 0.8 K/mm3 (1.2-5.4); Lymphocytes % (Auto) 9.4 % (13.4-35.0); Mean Corpuscular HGB Conc 32 % (30-34); Mean Corpuscular Volume 88 fl (79-97); Monocytes # (Auto) 0.5 K/mm3 (0.0-0.8); Monocytes % (Auto) 5.6 % (0.0-7.3); Platelet Count 285 K/mm3 (140-440); Red Blood Count 4.49 M/mm3 (3.65-5.03); Red Cell Distribution Width 16.7 % (13.2-15.2)
[2020-03-23] MEDS: hydrALAZINE 25 MG TAB PO SCH ×2 (05:48→13:23)
[2020-03-23] MEDS: HEPARIN 5,000 UNIT/1 ML VIAL SUB-Q SCH ×2 (05:48→13:24)
[2020-03-23] MEDS ORDERED: INSULIN GLARGINE 100 UNITS/ML SUB-Q NR (07:05)
[2020-03-23] MEDS: IPRATROPIUM/ALBUTEROL SULFATE 3 ML AMPUL.NEB IH SCH ×2 (07:56→14:04)
[2020-03-23] MEDS: methylPREDNISolone Sod Succinate 125 MG/2 ML INJ IV SCH (09:06)
[2020-03-23] MEDS: amLODIPine 10 MG TAB PO SCH (09:07)
[2020-03-23] MEDS: LISINOPRIL 10 MG TAB PO SCH (09:12)
--- NOTE | 2020-03-23 09:13 | Discharge Summary ---
Providers - Providers Date of Admission: 03/21/20 12:05 Date of discharge: 03/23/20 Attending physician: MOSES CANTRELL Primary care physician: HEAVY DUTY D[employer]EL MECH[employer]IC Hospitalization Reason for admission: Shortness of breath Condition: Stable Hospital course: 59-year-old female with a medical history of COPD admitted with chief complaint of shortness of breath and cough. She was noted to have respiratory acidosis and hypoxia and was admitted. Patient has had several negative tests for coronavirus the last tested in February. She denies fever, loss of sense of taste or smell, calf tenderness, leg edema. Patient states she is awaiting delivery of sleep apnea testing device to the home 03/22. Patient seen and examined bedside this morning. Has productive cough. On antibiotics and steroids. 03/23. Her breathing has improved significantly this morning. She has very minimal wheeze on exam. She will have a walk test. DC today. She will follow up with her database support in the office Disposition: [id number] TO HOME OR SELFCARE - Discharge Diagnoses (1) Acute respiratory acidosis Status: Acute (2) COPD exacerbation Status: Acute (3) Acute respiratory failure with hypoxia Status: Acute (4) DVT prophylaxis Status: Acute Core Measure Documentation - Palliative Care Palliative Care/ Comfort Measures: Not Applicable - Core Measures Any of the following diagnoses?: none Exam - Constitutional Vitals: Temp Pulse Resp BP Pulse Ox 97.9 F 85 19 152/72 98 03/23/20 05:54 03/23/20 07:56 03/23/20 07:56 03/23/20 05:54 03/23/20 07:58 General appearance: Present: no acute distress, well-nourished - EENT Eyes: Present: PERRL ENT: hearing intact, clear oral mucosa - Neck Neck: Present: supple, normal ROM - Respiratory Respiratory effort: normal Respiratory: bilateral: wheezing (very minimal wheeze) - Cardiovascular Heart Sounds: Present: S1 & S2. Absent: rub, click - Extremities Extremities: pulses symmetrical, No edema Peripheral Pulses: within normal limits - Abdominal General gastrointestinal: Present: soft, non-tender, non-distended, normal bowel sounds Female genitourinary: Present: normal - Integumentary Integumentary: Present: clear, warm, dry - Musculoskeletal Musculoskeletal: gait normal, strength equal bilaterally - Psychiatric Psychiatric: appropriate mood/affect, intact judgment & insight - Neurologic Neurologic: CNII-XII intact, moves all extremities Plan Diet: diabetic Additional Instructions: Prednisone 40 mg daily for 5 days. Levaquin for 3 more days. Follow up with database support in the office Follow up with: PRIMARY CARE, [Primary Care Provider] - 7 Days Prescriptions: hydrALAZINE [Apresoline TAB] 50 mg PO Q8HR #90 tablet predniSONE [Deltasone] 40 mg PO QDAY #10 tab levoFLOXacin [Levaquin] 750 mg PO QDAY #3 tablet Metoprolol [Lopressor TAB] 25 mg PO BID #60 tablet
[2020-03-23 13:27] VITALS: BP 142/77
== END 2020-03-23 15:45 | disposition home or self-care (01) | DRG 189 ==
LOC: ED 18:34 → 3A 22:20 → OBSVTOIN 03-21 12:05
PROVIDERS: ADMIT Internal Medicine; ATTEND Internal Medicine
PROC: 5A09357 Assistance with Respiratory Ventilation, Less than 24 Consecutive Hours, Continuous Positive Airway Pressure (ICD-10-PCS; 2010-03-21)
PROC: 4A033R1 Measurement of Arterial Saturation, Peripheral, Percutaneous Approach (ICD-10-PCS; principal; 2020-03-20)
PROC: 5A09357 Assistance with Respiratory Ventilation, Less than 24 Consecutive Hours, Continuous Positive Airway Pressure (ICD-10-PCS; 2020-03-20)
PROC: 5A09357 Assistance with Respiratory Ventilation, Less than 24 Consecutive Hours, Continuous Positive Airway Pressure (ICD-10-PCS; 2020-03-22)
DX: J96.01 Acute respiratory failure with hypoxia (principal); J44.1 Chronic obstructive pulmonary disease with (acute) exacerbation; E87.2 Acidosis; E11.9 Type 2 diabetes mellitus without complications; I10 Essential (primary) hypertension; E66.9 Obesity, unspecified; Z68.39 Body mass index [BMI] 39.0-39.9, adult; Z90.49 Acquired absence of other specified parts of digestive tract; Z87.891 Personal history of nicotine dependence
CPT/HCPCS: 36415; 71045; 80048; 82803; 82962; 83880; 84484; 85025; 87641; 93005; 93306; 94640; 94644; 94660; 94760; 96365; 96375; G0378; J1644; J1815; J1956; J2920; J2930; J3475